=== PATIENT | female | born 1955 | race Caucasian/White ===

== ENCOUNTER 2019-08-18 00:02 | Emergency (ER) | payer MEDICARE ==
[2019-08-18] MEDS ORDERED: Sodium Chloride 0.9% 1000 ML 1,000 ML IV STA (00:06)
[2019-08-18] MEDS ORDERED: Sodium Chloride 0.9% 1000 ML 1,000 ML ONE (00:06)
[2019-08-18] MEDS ORDERED: DEXTROSE 10% 250 ML 250 ML IV SCH (00:30)
--- NOTE | 2019-08-18 00:32 | ERPHSYRPT ---
- History of Present Illness Time Seen by Provider: 08/18/19 00:10 Source: patient, EMS Exam Limitations: no limitations Patient Subjective Stated Complaint: pt was found unconsciouse on floor by family. emt states blood sugar was 20. she was given one amp of d50 blood sugar was rechecked to be 142. pt was then alert and confused. pt was alert and able to answer questions on arrival to ed. temp rectally 93.6. family states she had been having several bouts of diarrhea earlier today Triage Nursing Assessment: pt alert nad appropriate. can answer questions. pt states she has no pain at this time but feels very cold. Physician History: Patient's family called EMS about 40 minutes prior to coming into the emergency department @ approximately 23:15 due to patient being unresponsive. EMS found that the patient has an insulin pump and had a glucose of 20, so 1 amp of D50 was pushed, which improved the patient's glucose to 17 and patient's responsiveness improved significantly, although she felt a little confused. EMS personnel turned of the patient's insulin pump after noting the low glucose. EMS found patient's temperature was 93 degrees Fahrenheit, but patient was not exposed to any outdoor elements. Patient states she felt normal while preparing for bed at 20:00 on 08/18/2019, but that was the last thing she remembered. She told EMS she had diarrhea earlier on 08/18/2019. Time of Onset/Last Time Seen Normal: 20:00 on 08/18/2019 Timing/Duration: sudden, improved Severity: moderate Character of Deficits: none Deficits: no difficulties Baseline/Normal Cognition: alert oriented x 3 Current Cognition: alert oriented x 3 Baseline Gait: walks w/o assistance Associated Symptoms: confusion, chills, loss of consciousness, No fatigue, No fever, No nausea, No vomiting, No weakness, No insomnia, No muscle spasms, No numbness/tingling in legs/feet, No paresthesia, No ringing in ears, No seizures , No slurred speech, No trouble walking, No vision changes, No chest pain, No headache Allergies/Adverse Reactions: No Known Drug Allergies Allergy (Verified 08/18/19 00:20) Home Medications: Calc/D3/Mag/Zn/Paulette/Ascencion/Yellow Jacket [Calcium 600 mg Plus Vit D Tab] 1 each PO DAILY 10/04/14 [History] Insulin Aspart [NovoLOG Insulin] 0 unit SQ UD 10/06/14 [History] Tramadol HCl 50 mg [Ultram 50 mg] 50 mg PO BID 11/01/15 [History] Gabapentin 300 mg PO TID 08/18/19 [History] Levothyroxine Sodium 75 Mcg [Synthroid 75 Mcg] 75 mcg PO DAILY 08/18/19 [ History] Losartan Potassium 25 mg PO DAILY 08/18/19 [History] Hx Tetanus, Diphtheria Vaccination/Date Given: Yes Hx Influenza Vaccination/Date Given: No Hx Pneumococcal Vaccination/Date Given: No - Review of Systems Constitutional: Chills, Lethargy, No Fever Eyes: No Symptoms, No Eye Pain, No Vision Changes Ears, Nose, & Throat: No Symptoms, No Epistaxis, No Mouth Swelling, No Painful Swallowing Respiratory: No Cough, No Dyspnea Cardiac: No Chest Pain, No Edema, No Syncope Abdominal/Gastrointestinal: No Abdominal Pain, No Nausea, No Vomiting, No Diarrhea, No Hematemesis, No Hematochezia, No Melena Genitourinary Symptoms: No Dysuria, No Frequency, No Hematuria, No Flank Pain Musculoskeletal: No Back Pain, No Neck Pain, No Myalgias Skin: No Pruritis, No Rash Neurological: No Dizziness, No Focal Weakness, No Headache, No Parasthesia, No Seizure, No Sensory Changes, No Speech Changes, No Tremors Psychological: No Symptoms, No Anxiety Endocrine: No Symptoms, No Excessive Sweating Hematologic/Lymphatic: No Easy Bleeding, No Easy Bruising All Other Systems: Reviewed and Negative - Past Medical History Pertinent Past Medical History: Yes Neurological History: No Pertinent History ENT History: No Pertinent History Cardiac History: Coronary Artery Disease, High Cholesterol, Hypertension Respiratory History: No Pertinent History Endocrine Medical History: Diabetes Type I Musculoskeletal History: Arthritis GI Medical History: Ulcer History: Renal Disease, Other Psycho-Social History: No Pertinent History Female Reproductive Disorders: Breast Cancer Other Medical History: anemia, " stage 3 renal" , diabetes 2 - Past Surgical History Past Surgical History: Yes Neuro Surgical History: No Pertinent History Cardiac: Cardiac Catheterization Respiratory: No Pertinent History Gastrointestinal: Cholecystectomy Genitourinary: No Pertinent History Musculoskeletal: No Pertinent History Female Surgical History: Mastectomy Other Surgical History: colonoscopy - Social History Smoking Status: Never smoker Exposure to second hand smoke: No Drug Use: none Patient Lives Alone: No - Nursing Vital Signs Nursing Vital Signs: Initial Vital Signs Temperature 93.6 F 08/18/19 00:10 Pulse Rate 69 08/18/19 00:10 Respiratory Rate 18 08/18/19 00:10 Blood Pressure 194/76 08/18/19 00:10 O2 Sat by Pulse Oximetry 100 08/18/19 00:10 Pain Scale Pain Intensity 0 - [place] Coma Scale Best Eye Response ([place]): (4) open spontaneously Best Verbal Response ([place]): (5) oriented Best Motor Response ([place]): (6) obeys commands Christine Total: 15 - Physical Exam General Appearance: no apparent distress, alert Eye Exam: bilateral eye: normal inspection, PERRL, EOMI Ears, Nose, Throat Exam: normal ENT inspection, TMs normal, pharynx normal, moist mucous membranes Neck Exam: normal inspection, non-tender, supple, full range of motion, No meningismus, No Brudzinski, No lymphadenopathy Respiratory: normal breath sounds, lungs clear, airway intact, No respiratory distress, No accessory muscle use, No crackles/rales, No rhonchi, No wheezing, No stridor Cardiovascular: regular rate/rhythm, No edema Gastrointestinal: soft, No tenderness, No distention, No guarding, No rebound Back Exam: normal inspection, normal range of motion, No CVA tenderness, No vertebral tenderness, No rash Extremity Exam: normal inspection, normal range of motion, pelvis stable, No calf tenderness, No pedal edema, No swelling Peripheral Pulses: dorsalis-pedis (R): 2+, dorsalis-pedis (L): 2+ Mental Status: alert, oriented x 3, 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 Exam: normal hearing, normal speech, PERRL, tongue midline, No facial droop Coordination/Gait: normal finger to nose, normal cerebellar function Motor/Sensory: no motor deficit, no sensory deficit, No sensory deficit, No weak motor strength RUE, No weak motor strength LUE, No weak motor strength RLE , No weak motor strength LLE DTR: ankle (R): 2+, ankle (L): 2+ Skin Exam: normal color, warm, dry, No rash SpO2 Interpretation: normal SpO2: 100 O2 Delivery: Room Air - Course Nursing assessment & vital signs reviewed: Yes EKG Interpreted by Me: RATE (70), Sinus Rhythm, LAFB, NORMAL INTERVALS, NORMAL QRS, NORMAL ST-T, Other (no change in comparison to EKG from 02/09/2015) - Radiology Exams Chest X-ray Interpretation: Interpreted by me, Reviewed by me, Negative, No Fracture, No Pneumonia, No Pneumothorax, Nml Heart Size, No Infiltrates, Nml Mediastinum Ordered Tests: Active Orders 24 hr Category Date Time Status Accucheck STAT Care 08/18/19 00:06 Active Welder Fitter Gas STAT Care 08/18/19 00:08 Active Catheter-[place] STAT Care 08/18/19 00:06 Active EKG-ER Only STAT Care 08/18/19 00:06 Active IV Insertion STAT Care 08/18/19 00:06 Active Nursing [Miscellaneous Nursing Order] ROUTINE Care 08/18/19 00:09 Active CHEST 1 VIEW (PORTABLE) Stat Exams 08/18/19 00:06 Taken BLOOD CULTURE Stat Lab 08/18/19 02:09 Received CBC W DIFF Stat Lab 08/18/19 01:11 Completed CK-Creatinine Phosphokinase Urgent Lab 08/18/19 01:11 Completed CMP Urgent Lab 08/18/19 01:11 Completed CULTURE,URINE Stat Lab 08/18/19 01:39 Received ETHYL ALCOHOL Urgent Lab 08/18/19 01:11 Completed LIPASE Urgent Lab 08/18/19 01:11 Completed Lactic Acid Urgent Lab 08/18/19 01:05 Completed MAGNESIUM Urgent Lab 08/18/19 01:11 Completed TROPONIN Q3H Lab 08/18/19 01:11 Completed TROPONIN Q3H Lab 08/18/19 03:45 Ordered TROPONIN Q3H Lab 08/18/19 06:45 Ordered TROPONIN Q3H Lab 08/18/19 09:45 Ordered TROPONIN Q3H Lab 08/18/19 12:45 Ordered UA W/RFX UR CULTURE Stat Lab 08/18/19 01:39 Completed VENOUS BLOOD GAS Urgent Lab 08/18/19 01:05 Completed Medication Summary Generic Name Dose Route Start Last Admin Trade Name Freq PRN Reason Stop Dose Admin Dextrose 250 mls @ 50 mls/hr 08/18/19 00:30 08/18/19 00:44 Dextrose 10% 250 Ml IV 09/17/19 00:29 50 mls/hr .Q5H BRAYDEN Administration Discontinued Medications Generic Name Dose Route Start Last Admin Trade Name Freq PRN Reason Stop Dose Admin Sodium Chloride 1,000 mls @ 999 mls/hr 08/18/19 00:06 08/18/19 00:22 Sodium Chloride 0.9% 1000 Ml IV 08/18/19 01:06 999 mls/hr .Q1H1M STA Administration Potassium Chloride 40 meq 08/18/19 01:31 08/18/19 01:59 Klor Con 10 Meq PO 08/18/19 01:32 40 meq STAT ONE Administration Potassium Chloride Confirm 08/18/19 01:58 Klor Con 10 Meq Administered 08/18/19 01:59 Dose 40 meq PO .STK-MED ONE Lab/Rad Data: Laboratory Result Diagrams 08/18/19 01:11 08/18/19 01:11 Laboratory Results 08/18/19 08/18/19 08/18/19 Range/Units 01:39 01:11 01:11 WBC 10.3 (4.0-10.5) K/mm3 RBC 4.19 (4.1-5.4) M/mm3 Hgb 11.9 L (12.0-16.0) gm/dl Hct 38.4 (35-47) % MCV 91.6 (78-100) fl MCH 28.4 (26-32) pg MCHC 31.0 L (32-36) g/dl RDW 14.9 H (11.5-14.0) % Plt Count 170 (150-450) K/mm3 MPV 10.9 H (6-9.5) fl Gran % 87.1 H (36.0-66.0) % Eos # (Auto) 0.06 (0-0.5) Absolute Lymphs (auto) 0.77 L (1.0-4.6) Absolute Monos (auto) 0.48 (0.0-1.3) Lymphocytes % 7.5 L (24.0-44.0) % Monocytes % 4.7 (0.0-12.0) % Eosinophils % 0.6 (0.00-5.0) % Basophils % 0.1 (0.0-0.4) % Absolute Granulocytes 8.94 H (1.4-6.9) Basophils # 0.01 (0-0.4) pO2/FiO2 Ratio % VBG pH (7.32-7.42) VBG pCO2 at Pat Temp (42-55) mm/Hg VBG pO2 at Pat Temp (25-40) mm/Hg VBG HCO3 (22-28) meq/L VBG O2 Sat (Deborah) (95-100) VBG Base Excess (-2.0-2.0) VBG Hemoglobin VBG Carboxyhemoglobin (0.0-6.9) % T HGB POC Potassium (3.5-5.1) Sodium 143 (137-145) mmol/L Potassium 3.5 (3.5-5.1) mmol/L Chloride 108 H (98-107) mmol/L Carbon Dioxide 26 (22-30) mmol/L Anion Gap 13.1 (5-15) MEQ/L BUN 13 (7-17) mg/dL Creatinine 0.81 (0.52-1.04) mg/dL Estimated GFR > 60.0 ML/MIN Glucose 95 (74-106) mg/dL Lactic Acid (0.4-2.0) Calcium 8.9 (8.4-10.2) mg/dL Magnesium 1.7 (1.6-2.3) mg/dL Total Bilirubin 0.80 (0.2-1.3) mg/dL AST 32 (14-36) U/L ALT 16 (0-35) U/L Alkaline Phosphatase 60 (38-126) U/L Creatine Kinase 53 (30-135) U/L Troponin I < 0.012 (0.000-0.034) ng/mL Serum Total Protein 7.7 (6.3-8.2) g/dL Albumin 4.0 (3.5-5.0) g/dL Lipase 42 (23-300) U/L Urine Color YELLOW (YELLOW) Urine Appearance CLEAR (CLEAR) Urine pH 6.0 (5-6) Ur Specific [place] 1.013 (1.005-1.025) Urine Protein NEGATIVE (Negative) Urine Ketones NEGATIVE (NEGATIVE) Urine Blood NEGATIVE (0-5) Chandu/ul Urine Nitrite NEGATIVE (NEGATIVE) Urine Bilirubin NEGATIVE (NEGATIVE) Urine Urobilinogen 2 (0-1) mg/dL Ur Leukocyte Esterase NEGATIVE (NEGATIVE) Urine WBC (Auto) 0-2 (0-5) /HPF Urine RBC (Auto) NONE (0-2) /HPF U Epithel Cells (Auto) NONE (FEW) /HPF Urine Bacteria (Auto) NONE (NEGATIVE) /HPF Urine Mucus (Auto) SLIGHT (NEGATIVE) /HPF Urine Culture Reflexed ORDERED SEPARATELY (NO) Urine Glucose 50 (NEGATIVE) mg/dL Ethyl Alcohol < 10 (0-10) mg/dL 08/18/19 Range/Units 01:05 WBC (4.0-10.5) K/mm3 RBC (4.1-5.4) M/mm3 Hgb (12.0-16.0) gm/dl Hct (35-47) % MCV (78-100) fl MCH (26-32) pg MCHC (32-36) g/dl RDW (11.5-14.0) % Plt Count (150-450) K/mm3 MPV (6-9.5) fl Gran % (36.0-66.0) % Eos # (Auto) (0-0.5) Absolute Lymphs (auto) (1.0-4.6) Absolute Monos (auto) (0.0-1.3) Lymphocytes % (24.0-44.0) % Monocytes % (0.0-12.0) % Eosinophils % (0.00-5.0) % Basophils % (0.0-0.4) % Absolute Granulocytes (1.4-6.9) Basophils # (0-0.4) pO2/FiO2 Ratio 21.0 % VBG pH 7.38 (7.32-7.42) VBG pCO2 at Pat Temp 43 (42-55) mm/Hg VBG pO2 at Pat Temp 37 (25-40) mm/Hg VBG HCO3 25.4 (22-28) meq/L VBG O2 Sat (Deborah) 76.0 L (95-100) VBG Base Excess 0.1 (-2.0-2.0) VBG Hemoglobin 12.1 VBG Carboxyhemoglobin 3.7 (0.0-6.9) % T HGB POC Potassium 3.3 L (3.5-5.1) Sodium (137-145) mmol/L Potassium (3.5-5.1) mmol/L Chloride (98-107) mmol/L Carbon Dioxide (22-30) mmol/L Anion Gap (5-15) MEQ/L BUN (7-17) mg/dL Creatinine (0.52-1.04) mg/dL Estimated GFR ML/MIN Glucose (74-106) mg/dL Lactic Acid 1.0 (0.4-2.0) Calcium (8.4-10.2) mg/dL Magnesium (1.6-2.3) mg/dL Total Bilirubin (0.2-1.3) mg/dL AST (14-36) U/L ALT (0-35) U/L Alkaline Phosphatase (38-126) U/L Creatine Kinase (30-135) U/L Troponin I (0.000-0.034) ng/mL Serum Total Protein (6.3-8.2) g/dL Albumin (3.5-5.0) g/dL Lipase (23-300) U/L Urine Color (YELLOW) Urine Appearance (CLEAR) Urine pH (5-6) Ur Specific [place] (1.005-1.025) Urine Protein (Negative) Urine Ketones (NEGATIVE) Urine Blood (0-5) Chandu/ul Urine Nitrite (NEGATIVE) Urine Bilirubin (NEGATIVE) Urine Urobilinogen (0-1) mg/dL Ur Leukocyte Esterase (NEGATIVE) Urine WBC (Auto) (0-5) /HPF Urine RBC (Auto) (0-2) /HPF U Epithel Cells (Auto) (FEW) /HPF Urine Bacteria (Auto) (NEGATIVE) /HPF Urine Mucus (Auto) (NEGATIVE) /HPF Urine Culture Reflexed (NO) Urine Glucose (NEGATIVE) mg/dL Ethyl Alcohol (0-10) mg/dL - Progress Progress: improved Progress Note: 08/18/19 01:30 Temperature improved to 95.5 08/18/19 02:15 Patient's temperature continues to improve. Patient is hemodynamically in good condition with hypertension decreasing, sinus rhythm on the cardiac nurse and patient has maintained her alertness with no focal neurologic deficits at any time in the emergency department. 08/18/19 03:31 Patient is hemodynamically in good condition. No arrhythmias, ectopy, or signs of ischemia, injury or injury on the cardiac nurse. Patient's fingerstick glucose was 263 with a temperature of 97.7. With resolution of her two issues that brought patient in the emergency department that led to her unresponsvieness, patient will be discharged home as there is no further intervention needed at this time or monitoring as an inpatient. Patient will followup as an outpatient with her student development advisor to adjust her insulin pump as well as check elevation of her glucose sensor in the morning of . Counseled pt/family regarding: lab results, diagnosis, need for follow-up, rad results - Departure Departure Disposition: Home Clinical Impression: Unresponsive episode, Hypoglycemia due to insulin, Essential hypertension Hypothermia Qualifiers: Encounter type: initial encounter Qualified Code(s): T68.XXXA - Hypothermia, initial encounter Condition: Good Critical Care Time: No Referrals: PATTIE HAQUE MD [Primary Care Provider] - 08/18/19 Instructions: Hypothermia, Delirium (Confusion) (DC), Low Blood Sugar, Adult ( DC), High Blood Pressure (DC) Additional Instructions: Discharge/Care Plan MALIKAVERONICA GRIER was seen on 08/18/19 in the Emergency Room. The patient was counseled regarding Diagnosis,Lab results, Imaging studies, need for follow up and when to return to the Emergency Room. Patient is to follow-up with her student development advisor at 08:00 am on 08/18/2019 to continue management of your insulin pump. Prescriptions given: None Discharge Note I have spoken with the patient and family. I have explained the patient's condition, diagnosis and treatment plan based on the information available to me at this time. I have answered the patient's and/or caregiver's questions and addressed any concerns. The patient and family have as good understanding of the patient's diagnosis, condition and treatment plan as can be expected at this point. The vital signs have been stable. The patient's condition is stable and appropriate for discharge from the emergency department. The patient will pursue further outpatient evaluation with the primary care physician or other designated or consulting physician as outlined in the discharge instructions. The patient and family are agreeable to this plan of care and follow-up instructions have been explained in detail. The patient and family have received these instruction. The patient and family are aware that any significant change in condition or worsening of symptoms should prompt an immediate return to this or the closest emergency department or call 911.
[2019-08-18] MEDS ORDERED: DEXTROSE 10% 250 ML 250 ML IV ONE (00:42)
[2019-08-18 01:10] LABS: Absolute Neutrophil Ct (ANC) 8.94 (1.4-6.9); BASOPHIL % 0.1 % (0.0-0.4); Basophil (Absolute #) 0.01 (0-0.4); Eosinophil % 0.6 % (0.00-5.0); Eosinophil (Absolute #) 0.06 (0-0.5); Hematocrit 38.4 % (35-47); Hemoglobin 11.9 gm/dl (12.0-16.0); Lymphocyte (Absolute #) 0.77 (1.0-4.6); Lymphocytes % 7.5 % (24.0-44.0); Mean Cell Volume 91.6 fl (78-100); Mean Corpuscular Hemoglobin 28.4 pg (26-32); Mean Platelet Volume 10.9 fl (6-9.5); Monocyte (Absolute #) 0.48 (0.0-1.3); Monocytes % 4.7 % (0.0-12.0); Neutrophil % 87.1 % (36.0-66.0); Platelet Count 170 K/mm3 (150-450); Red Blood Count 4.19 M/mm3 (4.1-5.4); Red Cell Distribution Width 14.9 % (11.5-14.0); White Blood Count 10.3 K/mm3 (4.0-10.5)
[2019-08-18 01:11] LABS: VBG BASE EXCESS 0.1 (-2.0-2.0); VBG CARBOXYHEMOGLOBIN 3.7 % T HGB (0.0-6.9); VBG HCO3- 25.4 meq/L (22-28); VBG HEMOGLOBIN 12.1; VBG POTASSIUM 3.3 (3.5-5.1); VBG pH 7.38 (7.32-7.42)
[2019-08-18] MEDS ORDERED: Klor Con 10 MEQ PO ONE ×2 (01:31→01:58)
[2019-08-18 01:49] LABS: ALKALINE PHOSPHATASE 60 U/L (38-126); ANION GAP 13.1 MEQ/L (5-15); BLOOD UREA NITROGEN 13 mg/dL (7-17); CHLORIDE 108 mmol/L (98-107); CK-Creatinine Phosphokinase 53 U/L (30-135); Calcium 8.9 mg/dL (8.4-10.2); Carbon Dioxide 26 mmol/L (22-30); Creatinine 1 0.81 mg/dL (0.52-1.04); ETHYL ALCOHOL < 10 mg/dL (0-10); Glucose 95 mg/dL (74-106); LIPASE 42 U/L (23-300); MAGNESIUM 1.7 mg/dL (1.6-2.3); Potassium 3.5 mmol/L (3.5-5.1); SGOT/AST 32 U/L (14-36); SGPT/ALT 16 U/L (0-35); SODIUM 143 mmol/L (137-145); TROPONIN < 0.012 ng/mL (0.000-0.034); Total Protein 7.7 g/dL (6.3-8.2)
[2019-08-18 01:50] LABS: Appearance CLEAR (CLEAR); Bilirubin NEGATIVE (NEGATIVE); Blood NEGATIVE Ery/ul (0-5); Glucose 50 mg/dL (NEGATIVE); Ketones NEGATIVE (NEGATIVE); Leukocyte Esterase NEGATIVE (NEGATIVE); Mucus SLIGHT /HPF (NEGATIVE); Nitrite NEGATIVE (NEGATIVE); Protein,Urine Dip NEGATIVE (Negative); Specific Gravity 1.013 (1.005-1.025); Urobilinogen 2 mg/dL (0-1); WBC 0-2 /HPF (0-5)
[2019-08-18 03:12] VITALS: BP 143/62; PULSE 72
[2019-08-18 03:37] VITALS: O2SAT 100
--- NOTE | 2019-08-18 09:12 | XRAY ---
Indication: Hypoglycemia. Hypothermia. Comparison: June 20, 2016. Portable chest again demonstrates normal heart and lungs with incidental calcified granulomas and right Port-A-Cath. Bony thorax intact again with mild degenerative changes. No new/acute findings.
== END 2019-08-18 03:53 | disposition home or self-care (01) ==
LOC: ED 00:02
DX: E10.641 Type 1 diabetes mellitus with hypoglycemia with coma (principal); Z79.4 Long term (current) use of insulin; Z96.41 Presence of insulin pump (external) (internal); T68.XXXA Hypothermia, initial encounter; R40.4 Transient alteration of awareness; I12.9 Hypertensive chronic kidney disease with stage 1 through stage 4 chronic kidney disease, or unspecified chronic kidney disease; N18.3 Chronic kidney disease, stage 3 (moderate); I25.10 Atherosclerotic heart disease of native coronary artery without angina pectoris; Z85.3 Personal history of malignant neoplasm of breast; E11.9 Type 2 diabetes mellitus without complications; Z79.899 Other long term (current) drug therapy
CPT/HCPCS: 36000; 36415; 51702; 71045; 80053; 81001; 82550; 82805; 82962; 83605; 83690; 83735; 84484; 85025; 87040; 87086; 93005; 93041; 96360; 96374; 99285; G0480; 80307; A9270-GY

== ENCOUNTER 2019-08-28 18:21 | Emergency (ER) | payer MEDICARE ==
[2019-08-28] MEDS ORDERED: D50W 50 ml Abboject IV ONE ×2 (18:24→18:57)
--- NOTE | 2019-08-28 19:11 | ERPHSYRPT ---
- History of Present Illness Time Seen by Provider: 08/28/19 19:09 Source: patient Exam Limitations: no limitations Patient Subjective Stated Complaint: Hypoglycemia Triage Nursing Assessment: Patient brought into ED via EMS and transferred to bed with assist of 2. Patient A+O X3. Patient's skin pink, warm and dry. Patient states her blood sugar dropped and all she remembers is being going to her bedroom. EMS stated upon arrival blood sugar was 30. Patient's BS at this is 64. Patient denies pain or discomfort. Physician History: Patient has episode of very low blood sugar 3 hours ago Patient states her blood sugar dropped and all she remembers is being going to her bedroom. EMS stated upon arrival blood sugar was 30. Patient's BS at this is 64. Patient denies pain or discomfort. Timing/Duration: today Associated Symptoms: denies symptoms Allergies/Adverse Reactions: No Known Drug Allergies Allergy (Verified 08/28/19 18:23) Home Medications: Calc/D3/Mag/Zn/Paulette/Ascencion/Rock [Calcium 600 mg Plus Vit D Tab] 1 each PO DAILY 10/04/14 [History] Insulin Aspart [NovoLOG Insulin] 0 unit SQ UD 10/06/14 [History] Tramadol HCl 50 mg [Ultram 50 mg] 50 mg PO BID 11/01/15 [History] Gabapentin 300 mg PO TID 08/18/19 [History] Levothyroxine Sodium 75 Mcg [Synthroid 75 Mcg] 75 mcg PO DAILY 08/18/19 [ History] Losartan Potassium 25 mg PO DAILY 08/18/19 [History] Hx Tetanus, Diphtheria Vaccination/Date Given: Yes Hx Influenza Vaccination/Date Given: No Hx Pneumococcal Vaccination/Date Given: No Immunizations Up to Date: Yes - Review of Systems Constitutional: No Fever, No Chills Eyes: No Symptoms Ears, Nose, & Throat: No Symptoms Respiratory: No Cough, No Dyspnea Cardiac: No Chest Pain, No Edema, No Syncope Abdominal/Gastrointestinal: No Abdominal Pain, No Nausea, No Vomiting, No Diarrhea Genitourinary Symptoms: No Dysuria Musculoskeletal: No Back Pain, No Neck Pain Skin: No Rash Neurological: No Dizziness, No Focal Weakness, No Sensory Changes Psychological: No Symptoms Endocrine: No Symptoms All Other Systems: Reviewed and Negative - Past Medical History Pertinent Past Medical History: Yes Neurological History: No Pertinent History ENT History: No Pertinent History Cardiac History: Coronary Artery Disease, High Cholesterol, Hypertension Respiratory History: No Pertinent History Endocrine Medical History: Diabetes Type I Musculoskeletal History: Arthritis GI Medical History: Ulcer History: Renal Disease, Other Psycho-Social History: No Pertinent History Female Reproductive Disorders: Breast Cancer Other Medical History: anemia, " stage 3 renal" , diabetes 2 - Past Surgical History Past Surgical History: Yes Neuro Surgical History: No Pertinent History Cardiac: Cardiac Catheterization Respiratory: No Pertinent History Gastrointestinal: Cholecystectomy Genitourinary: No Pertinent History Musculoskeletal: No Pertinent History Female Surgical History: Mastectomy Other Surgical History: colonoscopy - Social History Smoking Status: Never smoker Exposure to second hand smoke: No Drug Use: none Patient Lives Alone: No - Female History Hx Now: No - Nursing Vital Signs Nursing Vital Signs: Initial Vital Signs Temperature 97.6 F 08/28/19 18:25 Pulse Rate 68 08/28/19 18:25 Respiratory Rate 19 08/28/19 18:25 Blood Pressure 190/65 08/28/19 18:25 O2 Sat by Pulse Oximetry 100 08/28/19 18:25 Pain Scale Pain Intensity 0 - Physical Exam General Appearance: no apparent distress, alert Eye Exam: PERRL/EOMI, eyes nml inspection Ears, Nose, Throat Exam: normal ENT inspection, TMs normal, pharynx normal, moist mucous membranes Neck Exam: normal inspection, non-tender, supple, full range of motion Respiratory Exam: normal breath sounds, lungs clear, No respiratory distress Cardiovascular Exam: regular rate/rhythm, normal heart sounds, normal peripheral pulses Gastrointestinal/Abdomen Exam: soft, normal bowel sounds, No tenderness, No mass Back Exam: normal inspection, normal range of motion, No CVA tenderness, No vertebral tenderness Extremity Exam: normal inspection, normal range of motion, pelvis stable Neurologic Exam: alert, oriented x 3, cooperative, normal mood/affect, nml cerebellar function, nml station & gait, sensation nml, No motor deficits Skin Exam: normal color, warm, dry, No rash Lymphatic Exam: No adenopathy SpO2: 100 - Course Nursing assessment & vital signs reviewed: Yes EKG Interpreted by Me: Sinus Rhythm Rhythm Strip: Normal Sinus Rhythm Ordered Tests: Active Orders 24 hr Category Date Time Status ACCUCHECK [Accucheck] STAT Care 08/28/19 18:40 Active IV Insertion STAT Care 08/28/19 18:41 Active CBC W DIFF Stat Lab 08/28/19 19:53 Completed CMP Stat Lab 08/28/19 19:53 Completed CULTURE,URINE Stat Lab 08/28/19 19:55 Received Lactic Acid Stat Lab 08/28/19 18:39 Ordered MAG [MAGNESIUM] Stat Lab 08/28/19 19:53 Completed UA W/RFX UR CULTURE Stat Lab 08/28/19 19:55 Completed Medication Summary Discontinued Medications Generic Name Dose Route Start Last Admin Trade Name Ananya PRN Reason Stop Dose Admin Dextrose Confirm 08/28/19 18:24 D50w 50 Ml Abboject Administered 08/28/19 18:25 Dose 50 ml IV .STK-MED ONE Dextrose 50 ml 08/28/19 18:57 08/28/19 19:01 D50w 50 Ml Abboject IV 08/28/19 18:58 50 ml STAT ONE Administration Lab/Rad Data: Laboratory Result Diagrams 08/28/19 19:53 08/28/19 19:53 Laboratory Results 08/28/19 08/28/19 08/28/19 Range/Units 19:55 19:53 19:53 WBC 9.0 (4.0-10.5) K/mm3 RBC 4.07 L (4.1-5.4) M/mm3 Hgb 11.6 L (12.0-16.0) gm/dl Hct 37.0 (35-47) % MCV 90.9 (78-100) fl MCH 28.5 (26-32) pg MCHC 31.4 L (32-36) g/dl RDW 14.3 H (11.5-14.0) % Plt Count 180 (150-450) K/mm3 MPV 11.2 H (6-9.5) fl Gran % 83.2 H (36.0-66.0) % Eos # (Auto) 0.08 (0-0.5) Absolute Lymphs (auto) 0.96 L (1.0-4.6) Absolute Monos (auto) 0.45 (0.0-1.3) Lymphocytes % 10.7 L (24.0-44.0) % Monocytes % 5.0 (0.0-12.0) % Eosinophils % 0.9 (0.00-5.0) % Basophils % 0.2 (0.0-0.4) % Absolute Granulocytes 7.47 H (1.4-6.9) Basophils # 0.02 (0-0.4) Sodium 140 (137-145) mmol/L Potassium 4.1 (3.5-5.1) mmol/L Chloride 102 (98-107) mmol/L Carbon Dioxide 29 (22-30) mmol/L Anion Gap 13.7 (5-15) MEQ/L BUN 16 (7-17) mg/dL Creatinine 0.78 (0.52-1.04) mg/dL Estimated GFR > 60.0 ML/MIN Glucose 353 H (74-106) mg/dL Calcium 9.0 (8.4-10.2) mg/dL Magnesium 1.7 (1.6-2.3) mg/dL Total Bilirubin 0.70 (0.2-1.3) mg/dL AST 36 (14-36) U/L ALT 22 (0-35) U/L Alkaline Phosphatase 71 (38-126) U/L Serum Total Protein 7.8 (6.3-8.2) g/dL Albumin 4.0 (3.5-5.0) g/dL Urine Color YELLOW (YELLOW) Urine Appearance SLIGHTLY CLOUDY (CLEAR) Urine pH 7.0 (5-6) Ur Specific [place] 1.008 (1.005-1.025) Urine Protein NEGATIVE (Negative) Urine Ketones NEGATIVE (NEGATIVE) Urine Blood SMALL (0-5) Chandu/ul Urine Nitrite NEGATIVE (NEGATIVE) Urine Bilirubin NEGATIVE (NEGATIVE) Urine Urobilinogen NEGATIVE (0-1) mg/dL Ur Leukocyte Esterase SMALL (NEGATIVE) Urine WBC (Auto) 0-2 (0-5) /HPF Urine RBC (Auto) 3-5 (0-2) /HPF U Epithel Cells (Auto) RARE (FEW) /HPF Urine Bacteria (Auto) NONE (NEGATIVE) /HPF Urine Mucus (Auto) SLIGHT (NEGATIVE) /HPF Urine Culture Reflexed YES (NO) Urine Glucose 150 (NEGATIVE) mg/dL - Progress Progress: improved Counseled pt/family regarding: lab results, diagnosis, need for follow-up, rad results - Departure Departure Disposition: Home Clinical Impression: Hypoglycemia associated with diabetes Condition: Stable Critical Care Time: No Referrals: PATTIE HAQUE MD [Primary Care Provider] - Instructions: Low Blood Sugar, Adult (DC) Additional Instructions: Discharge/Care Plan VERONICA DALY was seen on 08/28/19 in the Emergency Room. The patient was counseled regarding Diagnosis,Lab results, Imaging studies, need for follow up and when to return to the Emergency Room. Prescriptions given: Discharge Note I have spoken with the patient and/or caregivers. I have explained the patient' s condition, diagnosis and treatment plan based on the information available to me at this time. I have answered the patient's and/or caregiver's questions and addressed any concerns. The patient and/or caregivers have as good understanding of the patient's diagnosis, condition and treatment plan as can be expected at this point. The vital signs have been stable. The patient's condition is stable and appropriate for discharge from the emergency department. The patient will pursue further outpatient evaluation with the primary care physician or other designated or consulting physician as outlined in the discharge instructions. The patient and/or caregivers are agreeable to this plan of care and follow-up instructions have been explained in detail. The patient and/or caregivers have received these instruction. The patient/and or caregivers are aware that any significant change in condition or worsening of symptoms should prompt an immediate return to this or the closest emergency department or call 911. VERONICA DALY was seen on 08/28/19 n the Emergency Room. At that time you were treated for an emergent condition, during your visit Laboratory, Radiology and/or other procedures may have been ordered. It is very important that you follow-up with your Primary Care Physician PATTIE HAQUE within the next 24- 48 hours to review your Emergency Room visit and the final results of testing that was ordered. Some test results such as Urine Cultures, Blood Cultures, and other cultures if ordered will not be finalized for 24-48 hours. If you do not have a Primary Care Provider please call the medical records department at [phone] ext [phone] to obtain a copy of your results or you may sign into our patient portal to obtain these results by visiting us @ [email or web address] and completing the following steps: 1. Click on the Patient Portal link 2. Click the Patient Self Enrollment Link to complete the enrollment form and entering your 3. Once the enrollment form is completed you will receive an email with a temporary ID and password at the email address you provided. 4. Next choose a user name and password. Your user name must be at least 4 characters long and your password must be at least 4 characters long. 5. Choose a security question from the list and provide your answer to the question. If you already have signed into the Health Portal you may access your Health Care Information 28/04 by the following steps: 1. Login to our website @ [email or web address] 2. Enter your original user name and password. FAQS The [facility] Health Portal is an online tool that contains your Lab Results, Radiology Reports, Visit History, Discharge Instructions and Health Summary Lab and Radiology Results will not be available for 72 hours on the portal. The Portal is a secure site, passwords are encryted and URLs are re-written so they cannot be copied and pasted. You and authorized family members are the only ones who can access your Portal. Also there is a timeout feature that protects your information if you leave the Portal page open. If you have technical difficulty please use the Contact Us link on the page this will allow you to submit any questions you have regarding the Portal or you may contact the Medical Record Department at [phone] ext [phone].
[2019-08-28 19:52] LABS: Absolute Neutrophil Ct (ANC) 7.47 (1.4-6.9); BASOPHIL % 0.2 % (0.0-0.4); Basophil (Absolute #) 0.02 (0-0.4); Eosinophil % 0.9 % (0.00-5.0); Eosinophil (Absolute #) 0.08 (0-0.5); Hemoglobin 11.6 gm/dl (12.0-16.0); Lymphocyte (Absolute #) 0.96 (1.0-4.6); Lymphocytes % 10.7 % (24.0-44.0); Mean Cell Volume 90.9 fl (78-100); Mean Corpuscular Hemoglobin 28.5 pg (26-32); Mean Corpuscular Hgb Concent. 31.4 g/dl (32-36); Mean Platelet Volume 11.2 fl (6-9.5); Monocyte (Absolute #) 0.45 (0.0-1.3); Neutrophil % 83.2 % (36.0-66.0); Platelet Count 180 K/mm3 (150-450); Red Blood Count 4.07 M/mm3 (4.1-5.4); Red Cell Distribution Width 14.3 % (11.5-14.0)
[2019-08-28 19:53] LABS: Appearance SLIGHTLY CLOUDY (CLEAR); Bilirubin NEGATIVE (NEGATIVE); Blood SMALL Ery/ul (0-5); Epithelial Cells RARE /HPF (FEW); Glucose 150 mg/dL (NEGATIVE); Ketones NEGATIVE (NEGATIVE); Leukocyte Esterase SMALL (NEGATIVE); Mucus SLIGHT /HPF (NEGATIVE); Nitrite NEGATIVE (NEGATIVE); Protein,Urine Dip NEGATIVE (Negative); Specific Gravity 1.008 (1.005-1.025); Urobilinogen NEGATIVE mg/dL (0-1); WBC 0-2 /HPF (0-5)
[2019-08-28 20:09] LABS: ALKALINE PHOSPHATASE 71 U/L (38-126); ANION GAP 13.7 MEQ/L (5-15); BLOOD UREA NITROGEN 16 mg/dL (7-17); CHLORIDE 102 mmol/L (98-107); Carbon Dioxide 29 mmol/L (22-30); Creatinine 1 0.78 mg/dL (0.52-1.04); Glucose 353 mg/dL (74-106); MAGNESIUM 1.7 mg/dL (1.6-2.3); Potassium 4.1 mmol/L (3.5-5.1); SGOT/AST 36 U/L (14-36); SGPT/ALT 22 U/L (0-35); SODIUM 140 mmol/L (137-145); Total Protein 7.8 g/dL (6.3-8.2)
[2019-08-28 20:23] VITALS: BP 169/89; PULSE 89; O2SAT 96
== END 2019-08-28 20:23 | disposition home or self-care (01) ==
LOC: ED 18:21
DX: E11.649 Type 2 diabetes mellitus with hypoglycemia without coma (principal); I25.10 Atherosclerotic heart disease of native coronary artery without angina pectoris; E78.00 Pure hypercholesterolemia, unspecified; I10 Essential (primary) hypertension
CPT/HCPCS: 36000; 36415; 80053; 81001; 82962; 83605; 83735; 85025; 87086; 96374; 99284; J1642

== ENCOUNTER 2021-03-30 23:12 | Inpatient (IN) | payer MEDICARE ==
[2021-03-30] MEDS ORDERED: Sodium Chloride 0.9% 1000 ML 2,000 ML ONE (23:25)
[2021-03-30] MEDS ORDERED: SODIUM BICARBONATE 50 MEQ/50 ML ABBOJECT IV ONE ×3 (23:26→23:31)
[2021-03-30] MEDS ORDERED: Sodium Chloride 0.9% 1000 ML 1,000 ML IV STA ×4 (23:26→23:40)
[2021-03-30] MEDS ORDERED: Calcium Gluconate 10% 1000 MG IV ONE ×2 (23:27→23:51)
[2021-03-30] MEDS ORDERED: HUMULIN R IV ONE (23:31)
[2021-03-30] MEDS ORDERED: HUMULIN R 100 UNIT in Sodium Chloride 0.9% 100 ML BAG 100 ML IV PRN (23:40)
[2021-03-30 23:43] LABS: Hematocrit 39.8 % (35-47); Hemoglobin 11.4 gm/dl (12.0-16.0); Mean Cell Volume 106.4 fl (78-100); Mean Corpuscular Hemoglobin 30.5 pg (26-32); Mean Corpuscular Hgb Concent. 28.6 g/dl (32-36); Platelet Count 260 K/mm3 (150-450); Red Blood Count 3.74 M/mm3 (4.1-5.4); Red Cell Distribution Width 14.5 % (11.5-14.0)
[2021-03-30 23:44] LABS: White Blood Count 31.3 K/mm3 (4.0-10.5)
[2021-03-30 23:47] LABS: ALBUMIN 4.3 g/dL (3.5-5.0); ALKALINE PHOSPHATASE 90 U/L (38-126); BLOOD UREA NITROGEN 28 mg/dL (7-17); CHLORIDE 93 mmol/L (98-107); Calcium 8.9 mg/dL (8.4-10.2); Creatinine 1 2.49 mg/dL (0.52-1.04); EST GLOMERULAR FILTRATION RATE 20.5 ML/MIN; ETHYL ALCOHOL < 10 mg/dL (0-10); MAGNESIUM 2.2 mg/dL (1.6-2.3); SGOT/AST 34 U/L (14-36); SODIUM 132 mmol/L (137-145); Total Protein 7.3 g/dL (6.3-8.2)
[2021-03-30 23:49] LABS: Glucose 1209 mg/dL (74-106)
[2021-03-30 23:50] LABS: Carbon Dioxide < 5.0 mmol/L (22-30); Potassium 8.1 mmol/L (3.5-5.1); SGPT/ALT 24 U/L (0-35)
[2021-03-30 23:54] LABS: ARTERIAL BLOOD GAS pH 7.04 (7.35-7.45)
[2021-03-30 23:55] LABS: ARTERIAL BLD GAS O2 SATURATION 99.7 % (95-100); ARTERIAL BLOOD GAS BASE EXCESS -24.5 (-2.0-2.0); ARTERIAL BLOOD GAS PCO2 16 mmHg (35-45); ARTERIAL BLOOD GAS PO2 136 mmHg (75-100); HCO3- 4.3 (22-28)
[2021-03-30 23:56] LABS: A-aADO2 -6
[2021-03-30 23:57] LABS: ABG HEMOGLOBIN 11.9; ABG POTASSIUM 7.9 (3.5-5.1); ARTERIAL BLOOD GAS FIO2 21 %; HGB O2 SAT 97.8 g/dF (94-100); Methhemoglobin 1.2 % (1.4-1.5)
[2021-03-30 23:58] LABS: Lymphocytes 6 % (24-44); Neutrophils 94 % (36.0-66.0); Platelet Estimate NORMAL (NORMAL); Total Cells Counted 100
[2021-03-30 23:58] LABS: ABG SITE RIGHT BRACHIAL; CARBOXYHEMOGLOBIN 0.7 % THgb (0.0-6.9)
[2021-03-31] MEDS ORDERED: HUMULIN R 100 UNIT in Sodium Chloride 0.9% 100 ML BAG 100 ML IV PRN ×2 (00:02→03:01)
--- NOTE | 2021-03-31 00:15 | ERPHSYRPT ---
- History of Present Illness Time Seen by Provider: 03/30/21 23:20 Source: EMS Exam Limitations: clinical condition Patient Subjective Stated Complaint: altered mental status/hyperglycemia Triage Nursing Assessment: Patient presented alert to voice and confused. EMS reported patient not acting right per family and having problems with her blood sugar. History of breast cancer and left radical masectomy. pupils 3mm bilateral. Oral mucosa pink/dry. neck supple without JVD. Symmterical chest expansion. Heart tones tacychardic/regular. Respirations tachypneic/deep. lungs vesicular throughout all omer A/P. Peripheral pulses +2 bilateral. Abdomen non-distended without hepatosplenomegaly. bowel sounds present. No noted dependent edema. decreased skin turgor. Physician History: Patient is a 66-year-old female who has apparently been ill for at least several days she is a known diabetic at 3:00 this afternoon according to EMS family reports that she became increasingly confused and that was when they realized th at she was ill. Patient is reactive to pain and occasionally to verbal commands moving all extremities opens her eyes spontaneously to voice. EMS found that her blood sugar was higher than their machine could read they reported the family said that she had no insulin today. Timing/Duration: day(s), worse (Worse today) Severity: severe Modifying Factors: Improves With: nothing Allergies/Adverse Reactions: No Known Drug Allergies Allergy (Verified 08/28/19 18:23) Home Medications: Calc/D3/Mag/Zn/Paulette/Ascencion/Hebo [Calcium 600 mg Plus Vit D Tab] 1 each PO DAILY 1 [History] Insulin Aspart [NovoLOG Insulin] 0 unit SQ UD 10/06/14 [History] Tramadol HCl 50 mg [Ultram 50 mg] 50 mg PO BID 11/01/15 [History] Gabapentin 300 mg PO TID 08/18/19 [History] Levothyroxine Sodium 75 Mcg [Synthroid 75 Mcg] 75 mcg PO DAILY 08/18/19 [History] Losartan Potassium 25 mg PO DAILY 08/18/19 [History] Hx Tetanus, Diphtheria Vaccination/Date Given: Yes Hx Influenza Vaccination/Date Given: No Hx Pneumococcal Vaccination/Date Given: No Travel Risk - International Travel Have you traveled outside of the country in past 3 weeks: (unknown) - Coronavirus Screening Are you exhibiting any of the following symptoms?: No Close contact with a COVID-19 positive Pt in past 14-21 Days: No - Vaccine Status Have you recieved a Covid-19 vaccination: Yes 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 - Vaccination Dates Date of 2cond Vaccination (if applicable): unknown Dates if Unknown: unknown - Review of Systems All Other Systems: Unable due to condition - Past Medical History Pertinent Past Medical History: Yes Neurological History: No Pertinent History ENT History: No Pertinent History Cardiac History: Coronary Artery Disease, High Cholesterol, Hypertension Respiratory History: No Pertinent History Endocrine Medical History: Diabetes Type I Musculoskeletal History: Arthritis GI Medical History: Ulcer History: Renal Disease, Other Psycho-Social History: No Pertinent History Female Reproductive Disorders: Breast Cancer Other Medical History: anemia, " stage 3 renal" , diabetes 2 - Past Surgical History Past Surgical History: Yes Neuro Surgical History: No Pertinent History Cardiac: Cardiac Catheterization Respiratory: No Pertinent History Gastrointestinal: Cholecystectomy Genitourinary: No Pertinent History Musculoskeletal: No Pertinent History Female Surgical History: Mastectomy Other Surgical History: colonoscopy - Social History Smoking Status: Never smoker Exposure to second hand smoke: No Drug Use: none Patient Lives Alone: No - Nursing Vital Signs Nursing Vital Signs: Initial Vital Signs Temperature 98.4 F 03/30/21 23:12 Pulse Rate 120 H 03/30/21 23:12 Respiratory Rate 24 03/30/21 23:12 Blood Pressure 98/64 03/30/21 23:12 O2 Sat by Pulse Oximetry 98 03/30/21 23:12 Pain Scale Pain Intensity 0 - Physical Exam General Appearance: severe distress, lethargy Eye Exam: PERRL/EOMI, eyes nml inspection Ears, Nose, Throat Exam: dry mucous membranes Neck Exam: normal inspection, non-tender, supple Respiratory Exam: normal breath sounds, lungs clear, other Cardiovascular Exam: regular rate/rhythm, tachycardia Gastrointestinal/Abdomen Exam: normal bowel sounds, tenderness, guarding Pelvic Exam: not done Rectal Exam: deferred Extremity Exam: normal inspection, pelvis stable Neurologic Exam: disoriented, confusion Skin Exam: normal color, warm, dry SpO2 Interpretation: normal SpO2: 97 O2 Delivery: Room Air - Course Nursing assessment & vital signs reviewed: Yes EKG Interpreted by Me: RATE (109), Sinus Tach, NORMAL AXIS, Left [place] Deviation, Other (Marked elevation of the T waves across most leads) - Radiology Exams Chest X-ray Interpretation: Interpreted by me, Other (Chest x-ray shows a port status post left mastectomy otherwise no acute process identified in the chest) Ordered Tests: Active Orders 24 hr Category Date Time Status Field Investigator STAT Care 03/30/21 23:32 Active Catheter-Holdrege Kaufman STAT Care 03/30/21 23:31 Active EKG-ER Only STAT Care 03/30/21 23:31 Active IV Insertion STAT Care 03/30/21 23:31 Active IV Insertion-2nd Peripheral STAT Care 03/30/21 23:31 Active Pulse Oximetry (ED) STAT Care 03/30/21 23:31 Active CHEST 1 VIEW (PORTABLE) Stat Exams 03/30/21 23:31 Taken ABG [ARTERIAL BLOOD GASES] Stat Lab 03/30/21 23:38 Ordered ARTERIAL BLOOD GASES Urgent Lab 03/30/21 23:32 Completed BLOOD CULTURE Stat Lab 03/30/21 23:00 Received BMP Stat Lab 03/31/21 00:10 Completed CBC W DIFF Stat Lab 03/30/21 23:00 Completed CMP Stat Lab 03/30/21 22:00 Completed CULTURE,URINE Stat Lab 03/30/21 23:31 Received ETHYL ALCOHOL Stat Lab 03/30/21 22:00 Completed Lactic Acid Urgent Lab 03/30/21 23:31 Completed MAGNESIUM Stat Lab 03/30/21 22:00 Completed Manual Differential NC Stat Lab 03/30/21 23:00 Completed POCT GLUCOSE Stat Lab 03/31/21 00:01 Received UA W/RFX UR CULTURE Stat Lab 03/30/21 23:31 Completed Transfer Order Routine Transfer 03/30/21 Ordered Medication Summary Generic Name Dose Route Start Last Admin Trade Name Freq PRN Reason Stop Dose Admin Insulin Human Regular 100 unit 100 mls @ 6.577 mls/hr 03/31/21 00:02 03/31/21 00:05 / Sodium Chloride IV 04/30/21 00:01 0.1 unit/kg/hr .[id number] PRN 6.577 mls/hr DKA/HYPERGLYCEMIA Administration Protocol 0.1 UNIT/KG/HR Ceftriaxone Sodium/Dextrose 1 g in 50 mls @ 100 mls/hr 03/31/21 00:46 Rocephin 1 Gm-D5w 50 Ml Bag IV 03/31/21 01:15 STAT STA Discontinued Medications Generic Name Dose Route Start Last Admin Trade Name Freq PRN Reason Stop Dose Admin Calcium Gluconate 1,000 mg 03/30/21 23:27 03/30/21 23:54 Calcium Gluconate 10% 1000 Mg IV 03/30/21 23:28 1,000 mg STAT ONE Administration Calcium Gluconate Confirm 03/30/21 23:51 Calcium Gluconate 10% 1000 Mg Administered 03/30/21 23:52 Dose 1,000 mg IV .STK-MED ONE Sodium Chloride 1,000 mls @ 999 mls/hr 03/30/21 23:26 03/30/21 23:27 Sodium Chloride 0.9% 1000 Ml IV 03/31/21 00:26 999 mls/hr .Q1H1M STA Administration Sodium Chloride 1,000 mls @ 999 mls/hr 03/30/21 23:26 03/30/21 23:27 Sodium Chloride 0.9% 1000 Ml IV 03/31/21 00:26 999 mls/hr .Q1H1M STA Administration Sodium Chloride Confirm 03/30/21 23:25 Sodium Chloride 0.9% 1000 Ml Administered 03/30/21 23:26 Dose 2,000 mls @ ud .ROUTE .STK-MED ONE Sodium Chloride 1,000 mls @ 999 mls/hr 03/30/21 23:31 03/30/21 23:53 Sodium Chloride 0.9% 1000 Ml IV 03/31/21 00:31 999 mls/hr .Q1H1M STA Administration Sodium Chloride 1,000 mls @ 999 mls/hr 03/30/21 23:40 03/30/21 23:51 Sodium Chloride 0.9% 1000 Ml IV 03/31/21 00:40 999 mls/hr .Q1H1M STA Administration Insulin Human Regular 10 unit 03/30/21 23:31 03/30/21 23:49 Humulin R IV 03/30/21 23:32 10 unit STAT ONE Administration Sodium Bicarbonate Confirm 03/30/21 23:27 Sodium Bicarbonate 50 Meq/50 Ml Abboject Administered 03/30/21 23:28 Dose 50 meq IV .STK-MED ONE Sodium Bicarbonate 50 meq 03/30/21 23:26 03/30/21 23:51 Sodium Bicarbonate 50 Meq/50 Ml Abboject IV 03/30/21 23:27 50 meq STAT ONE Administration Sodium Bicarbonate 50 meq 03/30/21 23:31 03/30/21 23:12 Sodium Bicarbonate 50 Meq/50 Ml Abboject IV 03/30/21 23:32 50 meq STAT ONE Administration Lab/Rad Data: Laboratory Result Diagrams 03/30/21 23:00 03/31/21 00:10 Laboratory Results 03/31/21 03/30/21 03/30/21 Range/Units 00:10 23:32 23:31 WBC (4.0-10.5) K/mm3 RBC (4.1-5.4) M/mm3 Hgb (12.0-16.0) gm/dl Hct (35-47) % MCV (78-100) fl MCH (26-32) pg MCHC (32-36) g/dl RDW (11.5-14.0) % Plt Count (150-450) K/mm3 MPV (7.5-11.0) fl Segmented Neutrophils (36.0-66.0) % Lymphocytes (Manual) (24-44) % Platelet Estimate (NORMAL) RBC Morphology Puncture Site RIGHT BRACHIAL pCO2 16 L* (35-45) mmHg pO2 136 H* (75-100) mmHg Base Excess -24.5 L (-2.0-2.0) O2 Saturation 97.8 (94-100) g/dF ABG pH 7.04 L* (7.35-7.45) ABG HCO3 4.3 L* (22-28) ABG O2 Sat (Measured) 99.7 (95-100) % Maxi Test NOT APPLICABLE A-a Gradient -6 a/A Ratio 1.05 Hemoglobin 11.9 Carboxyhemoglobin 0.7 (0.0-6.9) % THgb Methemoglobin 1.2 L (1.4-1.5) % POC O2 Flow Rate 21 % Sodium 143 D (137-145) mmol/L Potassium 4.9 D 7.9 H* (3.5-5.1) mmol/L Chloride 107 D (98-107) mmol/L Carbon Dioxide 9 L* (22-30) mmol/L Anion Gap 31.8 H (5-15) MEQ/L BUN 25 H (7-17) mg/dL Creatinine 2.04 H (0.52-1.04) mg/dL Estimated GFR 25.7 ML/MIN Glucose 753 H* (74-106) mg/dL Lactic Acid 6.9 H (0.4-2.0) Calcium 7.8 L (8.4-10.2) mg/dL Magnesium (1.6-2.3) mg/dL Total Bilirubin (0.2-1.3) mg/dL AST (14-36) U/L ALT (0-35) U/L Alkaline Phosphatase (38-126) U/L Serum Total Protein (6.3-8.2) g/dL Albumin (3.5-5.0) g/dL Urine Color (YELLOW) Urine Appearance (CLEAR) Urine pH (5-6) Ur Specific Morris (1.005-1.025) Urine Protein (Negative) Urine Ketones (NEGATIVE) Urine Blood (0-5) Chandu/ul Urine Nitrite (NEGATIVE) Urine Bilirubin (NEGATIVE) Urine Urobilinogen (0-1) mg/dL Ur Leukocyte Esterase (NEGATIVE) Urine WBC (Auto) (0-5) /HPF Urine RBC (Auto) (0-2) /HPF U Epithel Cells (Auto) (FEW) /HPF Urine Bacteria (Auto) (NEGATIVE) /HPF Urine Culture Reflexed (NO) Urine Glucose (NEGATIVE) mg/dL Ethyl Alcohol (0-10) mg/dL 03/30/21 03/30/21 03/30/21 Range/Units 23:31 23:00 22:00 WBC 31.3 H* (4.0-10.5) K/mm3 RBC 3.74 L (4.1-5.4) M/mm3 Hgb 11.4 L (12.0-16.0) gm/dl Hct 39.8 (35-47) % MCV 106.4 H (78-100) fl MCH 30.5 (26-32) pg MCHC 28.6 L (32-36) g/dl RDW 14.5 H (11.5-14.0) % Plt Count 260 (150-450) K/mm3 MPV 12.0 H (7.5-11.0) fl Segmented Neutrophils 94 H (36.0-66.0) % Lymphocytes (Manual) 6 L (24-44) % Platelet Estimate NORMAL (NORMAL) RBC Morphology NORMAL Puncture Site pCO2 (35-45) mmHg pO2 (75-100) mmHg Base Excess (-2.0-2.0) O2 Saturation (94-100) g/dF ABG pH (7.35-7.45) ABG HCO3 (22-28) ABG O2 Sat (Measured) (95-100) % Maxi Test A-a Gradient a/A Ratio Hemoglobin Carboxyhemoglobin (0.0-6.9) % THgb Methemoglobin (1.4-1.5) % POC O2 Flow Rate % Sodium 132 L (137-145) mmol/L Potassium 8.1 H* (3.5-5.1) mmol/L Chloride 93 L (98-107) mmol/L Carbon Dioxide < 5.0 L* (22-30) mmol/L Anion Gap (5-15) MEQ/L BUN 28 H (7-17) mg/dL Creatinine 2.49 H (0.52-1.04) mg/dL Estimated GFR 20.5 ML/MIN Glucose 1209 H* (74-106) mg/dL Lactic Acid (0.4-2.0) Calcium 8.9 (8.4-10.2) mg/dL Magnesium 2.2 (1.6-2.3) mg/dL Total Bilirubin 0.70 (0.2-1.3) mg/dL AST 34 (14-36) U/L ALT 24 (0-35) U/L Alkaline Phosphatase 90 (38-126) U/L Serum Total Protein 7.3 (6.3-8.2) g/dL Albumin 4.3 (3.5-5.0) g/dL Urine Color YELLOW (YELLOW) Urine Appearance CLOUDY (CLEAR) Urine pH 5.0 (5-6) Ur Specific [place] 1.021 (1.005-1.025) Urine Protein 30 (Negative) Urine Ketones SMALL (NEGATIVE) Urine Blood MODERATE (0-5) Chandu/ul Urine Nitrite NEGATIVE (NEGATIVE) Urine Bilirubin NEGATIVE (NEGATIVE) Urine Urobilinogen NEGATIVE (0-1) mg/dL Ur Leukocyte Esterase TRACE (NEGATIVE) Urine WBC (Auto) 16-25 (0-5) /HPF Urine RBC (Auto) 3-5 (0-2) /HPF U Epithel Cells (Auto) NONE (FEW) /HPF Urine Bacteria (Auto) NONE (NEGATIVE) /HPF Urine Culture Reflexed ORDERED SEPARATELY (NO) Urine Glucose >=500 (NEGATIVE) mg/dL Ethyl Alcohol < 10 (0-10) mg/dL - Progress Progress: improved Discussed with : Mel Will see patient in: hospital (full admit) - Departure Departure Disposition: In-patient Admission Clinical Impression: Ketoacidosis due to diabetes mellitus Condition: Critical Critical Care Time: Yes Critical Care Time(excluding separately billable procedures): Critical 105-134 mins Referrals: PATTIE HAQUE MD [Primary Care Provider] -
[2021-03-31 00:36] LABS: ANION GAP 31.8 MEQ/L (5-15); Calcium 7.8 mg/dL (8.4-10.2); Creatinine 1 2.04 mg/dL (0.52-1.04); EST GLOMERULAR FILTRATION RATE 25.7 ML/MIN; Potassium 4.9 mmol/L (3.5-5.1)
[2021-03-31 00:39] LABS: Appearance CLOUDY (CLEAR); Bilirubin NEGATIVE (NEGATIVE); Blood MODERATE Ery/ul (0-5); Glucose >=500 mg/dL (NEGATIVE); Ketones SMALL (NEGATIVE); Leukocyte Esterase TRACE (NEGATIVE); Nitrite NEGATIVE (NEGATIVE); Protein,Urine Dip 30 (Negative); Specific Gravity 1.021 (1.005-1.025); Urobilinogen NEGATIVE mg/dL (0-1)
[2021-03-31] MEDS ORDERED: ROCEPHIN 1 Gm-D5w 50 ml Bag** 1 G/50 ML IVPB IV STA (00:46)
[2021-03-31] MEDS ORDERED: Sodium Chloride 0.9% 500 ML 500 ML IV ONE (01:00)
[2021-03-31] MEDS ORDERED: ROCEPHIN 1 Gm-D5w 50 ml Bag** 1 G/50 ML IVPB IV ONE (01:39)
[2021-03-31] MEDS ORDERED: Sodium Chloride 0.9% 1000 ML 2,000 ML ONE (01:44)
[2021-03-31] MEDS: Sodium Chloride 0.9% 1000 ML 1,000 ML IV SCH ×4 (01:44→05:28)
[2021-03-31 04:34] LABS: Hematocrit 31.9 % (35-47); Hemoglobin 9.9 gm/dl (12.0-16.0); Mean Cell Volume 94.4 fl (78-100); Mean Corpuscular Hemoglobin 29.3 pg (26-32); Mean Platelet Volume 10.7 fl (7.5-11.0); Platelet Count 165 K/mm3 (150-450); Red Blood Count 3.38 M/mm3 (4.1-5.4); Red Cell Distribution Width 13.6 % (11.5-14.0)
[2021-03-31 04:44] LABS: VBG pH 7.32 (7.32-7.42)
[2021-03-31 04:45] LABS: VBG BASE EXCESS -8.9 (-2.0-2.0); VBG CARBOXYHEMOGLOBIN 2.7 % T HGB (0.0-6.9); VBG HEMOGLOBIN 10.3; VBG O2 SATURATION 90.9 (95-100); VBG POTASSIUM 4.2 (3.5-5.1)
[2021-03-31 04:45] LABS: ALBUMIN 3.4 g/dL (3.5-5.0); ANION GAP 20.1 MEQ/L (5-15); BILIRUBIN,TOTAL 0.4 mg/dL (0.2-1.3); Calcium 7.9 mg/dL (8.4-10.2); Creatinine 1 1.78 mg/dL (0.52-1.04); EST GLOMERULAR FILTRATION RATE 30.1 ML/MIN; MAGNESIUM 1.8 mg/dL (1.6-2.3); PHOSPHOROUS 2.1 mg/dL (2.5-4.5); Potassium 4.1 mmol/L (3.5-5.1); Total Protein 6.1 g/dL (6.3-8.2)
[2021-03-31 04:46] LABS: Lactic Acid 4.5 (0.4-2.0)
[2021-03-31 05:56] LABS: BAND 5 % (0.0-2.0); Lymphocytes 10 % (24-44); Monocyte 2 % (0.0-12.0); Neutrophils 83 % (36.0-66.0); Total Cells Counted 100
[2021-03-31 05:57] LABS: Dohle Bodies 1+; Platelet Estimate NORMAL (NORMAL)
[2021-03-31 06:38] VITALS: BP 100/75; PULSE 82; O2SAT 98
--- NOTE | 2021-03-31 07:29 | XRAY ---
Indication: Diabetic ketoacidosis. Comparison: August 18, 2019. Portable chest again demonstrates normal heart and lungs with a few incidental calcified granulomas and right Port-A-Cath. Bony thorax intact again with mild osteopenia, degenerative changes, and left mastectomy. No new/acute findings.
[2021-03-31] MEDS ORDERED: ROCEPHIN 1 Gm-D5w 50 ml Bag** 1 G/50 ML IVPB IV SCH (22:00)
== END 2021-03-31 07:20 | disposition short-term general hospital (02) | DRG 639 ==
LOC: ED 23:12 → ICU 03-31 02:31
PROVIDERS: ADMIT General Practice; ATTEND General Practice
DX: E10.10 Type 1 diabetes mellitus with ketoacidosis without coma (principal); R41.82 Altered mental status, unspecified; R79.89 Other specified abnormal findings of blood chemistry; Z85.3 Personal history of malignant neoplasm of breast; Z79.899 Other long term (current) drug therapy; I10 Essential (primary) hypertension; E78.00 Pure hypercholesterolemia, unspecified; Z20.828 Contact with and (suspected) exposure to other viral communicable diseases; Z86.79 Personal history of other diseases of the circulatory system
CPT/HCPCS: 36000; 36415; 36600; 51702; 71045; 80048; 80053; 81001; 82375; 82803; 82805; 82947; 83605; 83735; 84100; 84484; 85025; 87040; 87077; 87086; 87186; 93005; 93041; 94760; 96360; 96361; 96365; 96367; 96374; 96375; 96376; 99285; 99291; 99292; G0480; U0003; 80307; J0610; J0696; J1815

== ENCOUNTER 2021-04-07 13:18 | Emergency (ER) | payer MEDICARE ==
[2021-04-07] MEDS ORDERED: Amidate 20 MG/10 ML IV ONE ×2 (13:19)
[2021-04-07] MEDS ORDERED: LEVOPHED 4 MG/4 ML 4,000 MCG in Dextrose 5%/Water IV Soln. 500 ML 500 ML IV ONE (13:19)
[2021-04-07] MEDS ORDERED: HUMULIN R ONE ×2 (13:27→16:02)
[2021-04-07] MEDS ORDERED: Sodium Chloride 0.9% 1000 ML 1,000 ML IV STA (13:29)
[2021-04-07] MEDS ORDERED: HUMULIN R IV ONE ×2 (13:30→15:31)
[2021-04-07] MEDS ORDERED: HUMALOG SQ ONE (13:32)
[2021-04-07 13:36] LABS: Hematocrit 36.6 % (35-47); Hemoglobin 9.8 gm/dl (12.0-16.0); Mean Cell Volume 110.2 fl (78-100); Mean Corpuscular Hemoglobin 29.5 pg (26-32); Mean Corpuscular Hgb Concent. 26.8 g/dl (32-36); Mean Platelet Volume 10.6 fl (7.5-11.0); Platelet Count 297 K/mm3 (150-450); Red Blood Count 3.32 M/mm3 (4.1-5.4); Red Cell Distribution Width 15.6 % (11.5-14.0); White Blood Count 20.7 K/mm3 (4.0-10.5)
[2021-04-07] MEDS ORDERED: Sodium Chloride 0.9% 1000 ML 1,000 ML ONE ×4 (13:41→17:05)
[2021-04-07 13:50] LABS: ALBUMIN 3.7 g/dL (3.5-5.0); ALKALINE PHOSPHATASE 85 U/L (38-126); BLOOD UREA NITROGEN 25 mg/dL (7-17); CHLORIDE 93 mmol/L (98-107); Calcium 8.6 mg/dL (8.4-10.2); Creatinine 1 2.91 mg/dL (0.52-1.04); EST GLOMERULAR FILTRATION RATE 17.1 ML/MIN; SGOT/AST 29 U/L (14-36); SGPT/ALT 18 U/L (0-35); SODIUM 133 mmol/L (137-145); Total Protein 6.2 g/dL (6.3-8.2)
[2021-04-07 13:54] LABS: Potassium 7.3 mmol/L (3.5-5.1)
[2021-04-07] MEDS ORDERED: SODIUM BICARBONATE 50 MEQ/50 ML ABBOJECT IV ONE (13:54)
[2021-04-07 13:55] LABS: Carbon Dioxide < 5 mmol/L (22-30)
[2021-04-07 13:59] LABS: Glucose 1135 mg/dL (74-106)
[2021-04-07] MEDS ORDERED: HUMULIN R INSULIN (FOR DRIPS)** 100 UNITS in Sodium Chloride 0.9% 100 ML BAG 100 ML IV ONE (14:00)
[2021-04-07] MEDS ORDERED: SUBLIMAZE 100 MCG/2 ML ONE ×2 (14:24→17:05)
[2021-04-07] MEDS ORDERED: Sodium Chloride 0.9% 250 ML 250 ML IV ONE (14:24)
[2021-04-07] MEDS ORDERED: Versed 50 MG/ 10 Ml MDV ONE (14:24)
[2021-04-07] MEDS ORDERED: Merrem 1 GM 1 G in Sodium Chloride 100ML MINI-BAG PLUS 100 ML IV ONE (14:42)
[2021-04-07] MEDS ORDERED: Merrem 1 GM IV ONE (14:46)
[2021-04-07] MEDS ORDERED: Sodium Chloride 100ML MINI-BAG PLUS 100 ML IV ONE (14:46)
[2021-04-07 15:28] LABS: BAND 8 % (0.0-2.0); Lymphocytes 6 % (24-44); Monocyte 3 % (0.0-12.0); Neutrophils 83 % (36.0-66.0); Total Cells Counted 100
[2021-04-07 15:34] LABS: Glucose 943 mg/dL (74-106)
[2021-04-07 15:35] LABS: BLOOD UREA NITROGEN 25 mg/dL (7-17); CHLORIDE 100 mmol/L (98-107); Creatinine 1 2.73 mg/dL (0.52-1.04); EST GLOMERULAR FILTRATION RATE 18.4 ML/MIN; Potassium 5.1 mmol/L (3.5-5.1); SODIUM 138 mmol/L (137-145)
[2021-04-07 15:36] LABS: Calcium 8.2 mg/dL (8.4-10.2); Carbon Dioxide < 5 mmol/L (22-30)
[2021-04-07 15:38] LABS: Platelet Estimate NORMAL (NORMAL)
[2021-04-07 15:39] LABS: Hypochromia 1+; Polychromasia 1+
[2021-04-07 15:40] LABS: Appearance SLIGHTLY CLOUDY (CLEAR); Bilirubin NEGATIVE (NEGATIVE); Blood MODERATE Ery/ul (0-5); Epithelial Cells RARE /HPF (FEW); Glucose >=500 mg/dL (NEGATIVE); Hyaline Casts 0-2 /LPF (0-2); Ketones SMALL (NEGATIVE); Leukocyte Esterase NEGATIVE (NEGATIVE); Mucus SLIGHT /HPF (NEGATIVE); Nitrite NEGATIVE (NEGATIVE); Protein,Urine Dip 30 (Negative); RBC 0-2 /HPF (0-2); Specific Gravity 1.021 (1.005-1.025); Urobilinogen NEGATIVE mg/dL (0-1)
[2021-04-07 15:45] LABS: Bacteria NONE SEEN /HPF (NEGATIVE)
[2021-04-07 16:16] VITALS: O2SAT 100
[2021-04-07 16:22] LABS: A-aADO2 526; ABG HEMOGLOBIN 9.6; ABG POTASSIUM 5.2 (3.5-5.1); ARTERIAL BLD GAS TIDAL VOLUME 480 cc; ARTERIAL BLOOD GAS BASE EXCESS -24.4 (-2.0-2.0); ARTERIAL BLOOD GAS FIO2 100 %; ARTERIAL BLOOD GAS PO2 168 mmHg (75-100); ARTERIAL BLOOD GAS VENT MODE A/C; CARBOXYHEMOGLOBIN 6.6 % THgb (0.0-6.9); HCO3- 4.2 (22-28); HGB O2 SAT 92.2 g/dF (94-100); Lactic Acid 7.2 (0.4-2.0); Methhemoglobin 1.2 % (1.4-1.5)
[2021-04-07 16:23] LABS: ARTERIAL BLOOD GAS pH 7.05 (7.35-7.45)
[2021-04-07 16:26] LABS: ABG SITE LEFT FEMORAL; ARTERIAL BLOOD GAS PCO2 15 mmHg (35-45)
--- NOTE | 2021-04-07 16:42 | ERPHSYRPT ---
- History of Present Illness Source: EMS Exam Limitations: clinical condition Patient Subjective Stated Complaint: pt brougth by ambulance for hypergylcemia,ems states her BS read high on monitor, she has decrease mental status. Triage Nursing Assessment: pt moans to painful stimuli, resp shallow, skin w/d/p. has NRB in place at 100%, no edema noted, has port a cath to right side of chest. Physician History: 66 yo wf found down in home brought in by [facility] ambulance service obtunded w glucose >500. Pt obtunded upon arrival wo IV access. Sats good but maintaining airway. R subclavian port accessed and NS bolus started. Pt given 15units sq Humalog and 15units IV Regular insulin. L subclavian central line started per ER physician w sterile procedure wo comps. Due to pt's obtunded state it was decided to intubate. Pt given 15mg IV Etomidate and DL'ed per ER physician w Mac4 blade and also Miller4 blade. I was unable to visualize her cords, so RT looked w Glidescope w cords also not visualized. Pt nasally intubate w #[id number] per ER physician/Good BBS/+ET CO2. 100umg IV Fentanyl given after intubation. and pt experienced hypotension which was treated w fluids/Levafed drip. Insulin drip started at 10U/Hr. Timing/Duration: today Severity: severe Associated Symptoms: other (Unable to get Hx) Allergies/Adverse Reactions: No Known Drug Allergies Allergy (Verified 08/28/19 18:23) Home Medications: Insulin Glargine,Hum.rec.anlog [Zahra Martin] 1 unit SQ UD 03/31/21 [History] Insulin Lispro [Humalog] 16 unit SQ AC 03/31/21 [History] Levothyroxine Sodium [Euthyrox] 88 mcg PO DAILY 03/31/21 [History] Metoprolol Succinate 25 mg PO DAILY 03/31/21 [History] Paroxetine HCl [Paxil] 20 mg PO DAILY 03/31/21 [History] Potassium Chloride 40 meq PO DAILY 03/31/21 [History] Rosuvastatin Calcium 20 mg PO DAILY 03/31/21 [History] Hx Tetanus, Diphtheria Vaccination/Date Given: Yes Hx Influenza Vaccination/Date Given: No Hx Pneumococcal Vaccination/Date Given: No Travel Risk - International Travel Have you traveled outside of the country in past 3 weeks: No - Coronavirus Screening Are you exhibiting any of the following symptoms?: No Close contact with a COVID-19 positive Pt in past 14-21 Days: No - Vaccine Status Have you recieved a Covid-19 vaccination: No Director Of Cath Lab: Unknown - Vaccination Dates Date of 2cond Vaccination (if applicable): unknown Dates if Unknown: unknown - Review of Systems All Other Systems: Unable due to condition - Past Medical History Pertinent Past Medical History: Yes Neurological History: No Pertinent History ENT History: No Pertinent History Cardiac History: Coronary Artery Disease, High Cholesterol, Hypertension Respiratory History: No Pertinent History Endocrine Medical History: Diabetes Type I Musculoskeletal History: Arthritis GI Medical History: Ulcer History: Renal Disease, Other Psycho-Social History: No Pertinent History Female Reproductive Disorders: Breast Cancer Other Medical History: anemia, " stage 3 renal" , diabetes 2 - Past Surgical History Past Surgical History: Yes Neuro Surgical History: No Pertinent History Cardiac: Cardiac Catheterization Respiratory: No Pertinent History Gastrointestinal: Cholecystectomy Genitourinary: No Pertinent History Musculoskeletal: No Pertinent History Female Surgical History: Mastectomy Other Surgical History: colonoscopy - Social History Smoking Status: Never smoker Exposure to second hand smoke: No Drug Use: none Patient Lives Alone: No Significant Family History: no pertinent family hx - Female History Hx Last Menstrual Period: post Hx Now: No - Nursing Vital Signs Nursing Vital Signs: Initial Vital Signs O2 Sat by Pulse Oximetry 94 L 04/07/21 13:19 Pain Scale Pain Intensity 0 - Physical Exam General Appearance: severe distress Eye Exam: PERRL/EOMI Ears, Nose, Throat Exam: dry mucous membranes Neck Exam: normal inspection Respiratory Exam: normal breath sounds, lungs clear, airway intact, No respiratory distress Cardiovascular Exam: tachycardia, No murmur Gastrointestinal/Abdomen Exam: soft Extremity Exam: normal inspection Neurologic Exam: other (Pt obtunded) Skin Exam: normal color, warm, dry Lymphatic Exam: No adenopathy SpO2 Interpretation: normal SpO2: 100 O2 Delivery: Oxymask Procedures - Central Line Central Line Lumen: triple Central Line Procedure: chlorahexadine prep, sterile drapes applied, sterile dressing applied, Seldinger Technique Central Line Postion: subclavian (L) Anesthesia: 1% Lidocaine cc's of anesthesia: 5 Ultrasound Guided Placement: No Complications: none Central Line Post Position: sutured, good blood return, position confirmed w/ CXR, chest x-ray ordered - Intubation Intubation Indications: airway protection Intubation Method: nasotracheal Tube Size (cm): 7.0 Medications: Etomidate Endotracheal Tube Confirmation: bilateral breath sounds, positive end tidal CO2, good rise & fall of chest, stable or inc of O2 sat Intubation Complications: oral-unsuccessful attempt Performed By: ED Physician Post Intubation Xray: Yes - Course Nursing assessment & vital signs reviewed: Yes EKG Interpreted by Me: RATE (Sinus tach/R 116/ST depression V3-V5/LAFB/Prolonged QTc) - Radiology Exams Chest X-ray Interpretation: Interpreted by me (Blunting of R costophrenic angle/L subclavian central line/ET tube/No infiltrate or PTX/R subclavian port) - CT Exams Head CT Interpretation: Tele-radiologist Report (NEG) Ordered Tests: Active Orders 24 hr Category Date Time Status Gastric Tube Insertion STAT Care 04/07/21 14:44 Completed CHEST 1 VIEW (PORTABLE) Stat Exams 04/07/21 13:30 Completed HEAD WITHOUT CONTRAST [CT] Stat Exams 04/07/21 14:26 Completed ARTERIAL BLOOD GASES Urgent Lab 04/07/21 14:53 Completed BLOOD CULTURE Stat Lab 04/07/21 15:00 Received BMP Stat Lab 04/07/21 15:00 Completed CBC W DIFF Stat Lab 04/07/21 13:30 Completed CMP Stat Lab 04/07/21 13:30 Completed CMP Stat Lab 04/07/21 16:59 Completed CULTURE,URINE Stat Lab 04/07/21 13:57 Received Lactic Acid Routine Lab 04/07/21 16:55 Completed Lactic Acid Stat Lab 04/07/21 18:26 Received Lactic Acid Urgent Lab 04/07/21 14:53 Completed Manual Differential NC Stat Lab 04/07/21 13:30 Completed TROPONIN Stat Lab 04/07/21 13:30 Completed UA W/RFX UR CULTURE Stat Lab 04/07/21 13:57 Completed Medication Summary Discontinued Medications Generic Name Dose Route Start Last Admin Trade Name Freq PRN Reason Stop Dose Admin Fentanyl Citrate Confirm 04/07/21 14:24 Sublimaze 100 Mcg/2 Ml Administered 04/07/21 14:25 Dose 100 mcg .ROUTE .STK-MED ONE Fentanyl Citrate Confirm 04/07/21 17:05 Sublimaze 100 Mcg/2 Ml Administered 04/07/21 17:06 Dose 100 mcg .ROUTE .STK-MED ONE Sodium Chloride 1,000 mls @ 999 mls/hr 04/07/21 13:29 04/07/21 15:01 Sodium Chloride 0.9% 1000 Ml IV 04/07/21 14:29 Infused .Q1H1M STA Infusion Insulin Human Regular 100 101 mls @ ud 04/07/21 14:00 units/ Sodium Chloride IV 04/07/21 14:01 .STK-MED ONE Sodium Chloride Confirm 04/07/21 13:41 Sodium Chloride 0.9% 1000 Ml Administered 04/07/21 13:42 Dose 1,000 mls @ ud .ROUTE .STK-MED ONE Sodium Chloride Confirm 04/07/21 14:24 Sodium Chloride 0.9% 250 Ml Administered 04/07/21 14:25 Dose 250 mls @ ud IV .STK-MED ONE Meropenem 1 g/ Sodium Chloride 100 mls @ 200 mls/hr 04/07/21 14:42 04/07/21 15:18 IV 04/07/21 15:11 200 mls/hr STAT ONE Administration Sodium Chloride Confirm 04/07/21 14:41 Sodium Chloride 0.9% 1000 Ml Administered 04/07/21 14:42 Dose 1,000 mls @ ud .ROUTE .STK-MED ONE Sodium Chloride Confirm 04/07/21 14:46 Sodium Chloride 100ml Mini-Bag Plus Administered 04/07/21 14:47 Dose 100 mls @ ud IV .STK-MED ONE Sodium Chloride Confirm 04/07/21 16:09 Sodium Chloride 0.9% 1000 Ml Administered 04/07/21 16:10 Dose 1,000 mls @ ud .ROUTE .STK-MED ONE Sodium Chloride Confirm 04/07/21 17:05 Sodium Chloride 0.9% 1000 Ml Administered 04/07/21 17:06 Dose 1,000 mls @ ud .ROUTE .STK-MED ONE Potassium Chloride/Sodium Chloride Confirm 04/07/21 17:30 Sodium Chloride 0.9% W/ 20 Meq Kcl/Liter Administered 04/07/21 17:31 Dose 1,000 mls @ ud IV .STK-MED ONE Insulin Human Lispro 15 unit 04/07/21 13:32 04/07/21 13:45 Humalog SQ 04/07/21 13:33 15 unit STAT ONE Administration Insulin Human Regular Confirm 04/07/21 13:27 Humulin R Administered 04/07/21 13:28 Dose 15 unit .ROUTE .STK-MED ONE Insulin Human Regular 15 unit 04/07/21 13:30 04/07/21 13:45 Humulin R IV 04/07/21 13:31 15 unit STAT ONE Administration Insulin Human Regular 15 unit 04/07/21 15:31 04/07/21 16:06 Humulin R IV 04/07/21 15:32 15 unit STAT ONE Administration Insulin Human Regular Confirm 04/07/21 16:02 Humulin R Administered 04/07/21 16:03 Dose 15 unit .ROUTE .STK-MED ONE Meropenem Confirm 04/07/21 14:46 Merrem 1 Gm Administered 04/07/21 14:47 Dose 1 g IV .STK-MED ONE Midazolam HCl Confirm 04/07/21 14:24 Versed 50 Mg/ 10 Ml Mdv Administered 04/07/21 14:25 Dose 50 mg .ROUTE .STK-MED ONE Sodium Bicarbonate Confirm 04/07/21 13:54 Sodium Bicarbonate 50 Meq/50 Ml Abboject Administered 04/07/21 13:55 Dose 100 meq IV .STK-MED ONE Lab/Rad Data: Laboratory Result Diagrams 04/07/21 13:30 04/07/21 16:59 Laboratory Results 04/07/21 04/07/21 04/07/21 Range/Units 16:59 16:55 15:00 WBC (4.0-10.5) K/mm3 RBC (4.1-5.4) M/mm3 Hgb (12.0-16.0) gm/dl Hct (35-47) % MCV (78-100) fl MCH (26-32) pg MCHC (32-36) g/dl RDW (11.5-14.0) % Plt Count (150-450) K/mm3 MPV (7.5-11.0) fl Segmented Neutrophils (36.0-66.0) % Band Neutrophils (0.0-2.0) % Lymphocytes (Manual) (24-44) % Monocytes (Manual) (0.0-12.0) % Hypochromia Platelet Estimate (NORMAL) RBC Morphology Polychromasia Puncture Site pCO2 (35-45) mmHg pO2 (75-100) mmHg Base Excess (-2.0-2.0) O2 Saturation (94-100) g/dF ABG pH (7.35-7.45) ABG HCO3 (22-28) ABG O2 Sat (Measured) (95-100) % Maxi Test A-a Gradient a/A Ratio Hemoglobin Carboxyhemoglobin (0.0-6.9) % THgb Methemoglobin (1.4-1.5) % Temperature C POC O2 Flow Rate % Vent Mode Tidal Volume cc PEEP cmH2O Sodium 139 138 (137-145) mmol/L Potassium 4.3 5.1 D (3.5-5.1) mmol/L Chloride 104 100 (98-107) mmol/L Carbon Dioxide 7 L* < 5 L* (22-30) mmol/L Anion Gap 33.2 H Not Reportable BUN 25 H 25 H (7-17) mg/dL Creatinine 2.54 H 2.73 H (0.52-1.04) mg/dL Estimated GFR 20.0 18.4 ML/MIN Glucose 721 H* 943 H* (74-106) mg/dL Lactic Acid 4.6 H (0.4-2.0) Calcium 7.3 L 8.2 L (8.4-10.2) mg/dL Total Bilirubin 0.20 (0.2-1.3) mg/dL AST 32 (14-36) U/L ALT 17 (0-35) U/L Alkaline Phosphatase 63 (38-126) U/L Troponin I (0.000-0.034) ng/mL Serum Total Protein 5.5 L (6.3-8.2) g/dL Albumin 3.0 L (3.5-5.0) g/dL Urine Color (YELLOW) Urine Appearance (CLEAR) Urine pH (5-6) Ur Specific [place] (1.005-1.025) Urine Protein (Negative) Urine Ketones (NEGATIVE) Urine Blood (0-5) Chandu/ul Urine Nitrite (NEGATIVE) Urine Bilirubin (NEGATIVE) Urine Urobilinogen (0-1) mg/dL Ur Leukocyte Esterase (NEGATIVE) Urine WBC (Auto) (0-5) /HPF Urine RBC (Auto) (0-2) /HPF U Hyaline Cast (Auto) (0-2) /LPF U Epithel Cells (Auto) (FEW) /HPF Urine Bacteria (Auto) (NEGATIVE) /HPF Urine Mucus (Auto) (NEGATIVE) /HPF Urine Culture Reflexed (NO) Urine Glucose (NEGATIVE) mg/dL 04/07/21 04/07/21 04/07/21 Range/Units 14:53 13:57 13:30 WBC (4.0-10.5) K/mm3 RBC (4.1-5.4) M/mm3 Hgb (12.0-16.0) gm/dl Hct (35-47) % MCV (78-100) fl MCH (26-32) pg MCHC (32-36) g/dl RDW (11.5-14.0) % Plt Count (150-450) K/mm3 MPV (7.5-11.0) fl Segmented Neutrophils (36.0-66.0) % Band Neutrophils (0.0-2.0) % Lymphocytes (Manual) (24-44) % Monocytes (Manual) (0.0-12.0) % Hypochromia Platelet Estimate (NORMAL) RBC Morphology Polychromasia Puncture Site LEFT FEMORAL pCO2 15 L* (35-45) mmHg pO2 168 H* (75-100) mmHg Base Excess -24.4 L (-2.0-2.0) O2 Saturation 92.2 L (94-100) g/dF ABG pH 7.05 L* (7.35-7.45) ABG HCO3 4.2 L* (22-28) ABG O2 Sat (Measured) 100.0 (95-100) % Maxi Test NOT APPLICABLE A-a Gradient 526 a/A Ratio 0.24 Hemoglobin 9.6 Carboxyhemoglobin 6.6 (0.0-6.9) % THgb Methemoglobin 1.2 L (1.4-1.5) % Temperature 37.0 C POC O2 Flow Rate 100 % Vent Mode A/C Tidal Volume 480 cc PEEP 5.0 cmH2O Sodium (137-145) mmol/L Potassium 5.2 H (3.5-5.1) mmol/L Chloride (98-107) mmol/L Carbon Dioxide (22-30) mmol/L Anion Gap BUN (7-17) mg/dL Creatinine (0.52-1.04) mg/dL Estimated GFR ML/MIN Glucose (74-106) mg/dL Lactic Acid 7.2 H (0.4-2.0) Calcium (8.4-10.2) mg/dL Total Bilirubin (0.2-1.3) mg/dL AST (14-36) U/L ALT (0-35) U/L Alkaline Phosphatase (38-126) U/L Troponin I 0.162 H* (0.000-0.034) ng/mL Serum Total Protein (6.3-8.2) g/dL Albumin (3.5-5.0) g/dL Urine Color YELLOW (YELLOW) Urine Appearance SLIGHTLY CLOUDY (CLEAR) Urine pH 5.0 (5-6) Ur Specific [place] 1.021 (1.005-1.025) Urine Protein 30 (Negative) Urine Ketones SMALL (NEGATIVE) Urine Blood MODERATE (0-5) Chandu/ul Urine Nitrite NEGATIVE (NEGATIVE) Urine Bilirubin NEGATIVE (NEGATIVE) Urine Urobilinogen NEGATIVE (0-1) mg/dL Ur Leukocyte Esterase NEGATIVE (NEGATIVE) Urine WBC (Auto) 6-10 (0-5) /HPF Urine RBC (Auto) 0-2 (0-2) /HPF U Hyaline Cast (Auto) 0-2 (0-2) /LPF U Epithel Cells (Auto) RARE (FEW) /HPF Urine Bacteria (Auto) NONE SEEN (NEGATIVE) /HPF Urine Mucus (Auto) SLIGHT (NEGATIVE) /HPF Urine Culture Reflexed ORDERED SEPARATELY (NO) Urine Glucose >=500 (NEGATIVE) mg/dL 04/07/21 04/07/21 Range/Units 13:30 13:30 WBC 20.7 H (4.0-10.5) K/mm3 RBC 3.32 L (4.1-5.4) M/mm3 Hgb 9.8 L (12.0-16.0) gm/dl Hct 36.6 (35-47) % MCV 110.2 H (78-100) fl MCH 29.5 (26-32) pg MCHC 26.8 L (32-36) g/dl RDW 15.6 H (11.5-14.0) % Plt Count 297 (150-450) K/mm3 MPV 10.6 (7.5-11.0) fl Segmented Neutrophils 83 H (36.0-66.0) % Band Neutrophils 8 H (0.0-2.0) % Lymphocytes (Manual) 6 L (24-44) % Monocytes (Manual) 3 (0.0-12.0) % Hypochromia 1+ Platelet Estimate NORMAL (NORMAL) RBC Morphology NORMAL Polychromasia 1+ Puncture Site pCO2 (35-45) mmHg pO2 (75-100) mmHg Base Excess (-2.0-2.0) O2 Saturation (94-100) g/dF ABG pH (7.35-7.45) ABG HCO3 (22-28) ABG O2 Sat (Measured) (95-100) % Maxi Test A-a Gradient a/A Ratio Hemoglobin Carboxyhemoglobin (0.0-6.9) % THgb Methemoglobin (1.4-1.5) % Temperature C POC O2 Flow Rate % Vent Mode Tidal Volume cc PEEP cmH2O Sodium 133 L (137-145) mmol/L Potassium 7.3 H* (3.5-5.1) mmol/L Chloride 93 L (98-107) mmol/L Carbon Dioxide < 5 L* (22-30) mmol/L Anion Gap BUN 25 H (7-17) mg/dL Creatinine 2.91 H (0.52-1.04) mg/dL Estimated GFR 17.1 ML/MIN Glucose 1135 H* (74-106) mg/dL Lactic Acid (0.4-2.0) Calcium 8.6 (8.4-10.2) mg/dL Total Bilirubin 0.30 (0.2-1.3) mg/dL AST 29 (14-36) U/L ALT 18 (0-35) U/L Alkaline Phosphatase 85 (38-126) U/L Troponin I (0.000-0.034) ng/mL Serum Total Protein 6.2 L (6.3-8.2) g/dL Albumin 3.7 (3.5-5.0) g/dL Urine Color (YELLOW) Urine Appearance (CLEAR) Urine pH (5-6) Ur Specific [place] (1.005-1.025) Urine Protein (Negative) Urine Ketones (NEGATIVE) Urine Blood (0-5) Chandu/ul Urine Nitrite (NEGATIVE) Urine Bilirubin (NEGATIVE) Urine Urobilinogen (0-1) mg/dL Ur Leukocyte Esterase (NEGATIVE) Urine WBC (Auto) (0-5) /HPF Urine RBC (Auto) (0-2) /HPF U Hyaline Cast (Auto) (0-2) /LPF U Epithel Cells (Auto) (FEW) /HPF Urine Bacteria (Auto) (NEGATIVE) /HPF Urine Mucus (Auto) (NEGATIVE) /HPF Urine Culture Reflexed (NO) Urine Glucose (NEGATIVE) mg/dL - Progress Progress: improved Progress Note: 04/07/21 20:12 66 yo wf obtunded/nasally intubated per ER physician/L subclavian line per ER physician Hyperkalemia treated w NACO3 Hyperglycemia treated w 15units SQ Regular Humalog/15units IV regular insulin/Insulin drip 10U/HR/subsequent 15units IV regular insulin Hyperosmolar coma treated w 4L NS bolus Hypotension after intubation treated w fluids/Levafed drip Possible sepsis treated w 1gm Meropenem [facility] but stable when care assumed by ambulance service w Insulin drip 10u/hr/NS w20KCl at 200ml/hr/Levafed drip at 10mcg/hr Counseled pt/family regarding: lab results, diagnosis, rad results - Departure Departure Disposition: Transfer Clinical Impression: Hyperosmolar coma, NSTEMI (non-ST elevated myocardial infarction), Sepsis Condition: Critical Critical Care Time: Yes Critical Care Time(excluding separately billable procedures): Critcal > 194 mins Referrals: PATTIE HAQUE MD [Primary Care Provider] -
[2021-04-07 17:12] LABS: ANION GAP 33.2 MEQ/L (5-15); BILIRUBIN,TOTAL 0.2 mg/dL (0.2-1.3); Calcium 7.3 mg/dL (8.4-10.2); Creatinine 1 2.54 mg/dL (0.52-1.04); Potassium 4.3 mmol/L (3.5-5.1); Total Protein 5.5 g/dL (6.3-8.2)
[2021-04-07 17:15] VITALS: BP 88/41; PULSE 95
[2021-04-07] MEDS ORDERED: Sodium Chloride 0.9% W/ 20 mEq KCl/LITER 1,000 ML IV ONE (17:30)
--- NOTE | 2021-04-07 19:38 | XRAY ---
Indication: Tube placement. Comparison: March 30, 2021. Portable chest demonstrates new endotracheal tube tip 5 cm above devaughn and new left subclavian central venous access catheter with tip projecting over SVC without complications. Remaining heart and lungs unremarkable with stable right Port-A-Cath.
--- NOTE | 2021-04-07 19:55 | XRAY ---
Indication: Found unconscious. Multiple contiguous axial images obtained through the head without contrast. Comparison: October 06, 2014. Age-appropriate global atrophy. No acute intracranial hemorrhage, abnormal extra-axial fluid collection, or mass effect. Fourth ventricle is midline without hydrocephalus. Bony calvarium intact. Moderate mucosal thickening of both ethmoid and lesser degree right maxillary sinuses. Mastoid air cells are clear. New incompletely visualized NG tube and endotracheal tube. Impression: Continued negative CT head without contrast exam. Incidental paranasal sinus disease, NG tube, and endotracheal tube. Comment: Preliminary interpretation was made by [facility]. No critical discrepancy.
== END 2021-04-07 17:59 | disposition short-term general hospital (02) ==
LOC: ED 13:18
DX: E11.01 Type 2 diabetes mellitus with hyperosmolarity with coma (principal); I10 Essential (primary) hypertension; A41.9 Sepsis, unspecified organism; I21.4 Non-ST elevation (NSTEMI) myocardial infarction; E78.00 Pure hypercholesterolemia, unspecified; Z79.899 Other long term (current) drug therapy; Z79.4 Long term (current) use of insulin
CPT/HCPCS: 31500; 36415; 36600; 51702; 70450; 71045; 80048; 80053; 81001; 82375; 82803; 83605; 84484; 85025; 87040; 87086; 93005; 93041; 94002; 94760; 96360; 96361; 96365; 96366; 96367; 96368; 96372; 96374; 96376; 99285; 99291; 99292; J1815; J1817; J2250; J3010

== ENCOUNTER 2021-06-15 10:16 | Inpatient (IN) | payer MEDICARE ==
[2021-06-15] MEDS ORDERED: DUONEB 0.5-3 MG/3 ml Neb IH ONE ×2 (10:48→11:14)
--- NOTE | 2021-06-15 11:06 | XRAY ---
Indication: Cough. Comparison: April 07, 2021. Portable chest clear again with incidental right costophrenic angle calcified granuloma. Heart not enlarged again with right Port-A-Cath. Bony thorax intact again with mild osteopenia and degenerative changes. Impression: Continued nonacute chest with chronic features.
[2021-06-15 11:37] LABS: Absolute Neutrophil Ct (ANC) 12.56 (1.4-6.9); Basophil (Absolute #) 0 (0-0.4); Eosinophil (Absolute #) 0 (0-0.5); Hematocrit 33.2 % (35-47); Hemoglobin 10.3 gm/dl (12.0-16.0); Lymphocyte (Absolute #) 1.48 (1.0-4.6); Mean Cell Volume 90.2 fl (78-100); Mean Platelet Volume 9.5 fl (7.5-11.0); Monocyte (Absolute #) 0.83 (0.0-1.3); Monocytes % 5.6 % (0.0-12.0); Neutrophil % 84.4 % (36.0-66.0); Platelet Count 336 K/mm3 (150-450); Red Blood Count 3.68 M/mm3 (4.1-5.4); Red Cell Distribution Width 16.9 % (11.5-14.0); White Blood Count 14.9 K/mm3 (4.0-10.5)
[2021-06-15 11:44] LABS: Appearance CLOUDY (CLEAR); Bacteria PACKED /HPF (NEGATIVE); Bilirubin NEGATIVE (NEGATIVE); Blood SMALL Ery/ul (0-5); Epithelial Cells RARE /HPF (FEW); Glucose >=500 mg/dL (NEGATIVE); Ketones TRACE (NEGATIVE); Leukocyte Esterase LARGE (NEGATIVE); Nitrite NEGATIVE (NEGATIVE); Non-Squamous Epithelial Cells RARE /HPF (FEW); Protein,Urine Dip 100 (Negative); Specific Gravity 1.015 (1.005-1.025); Urobilinogen NEGATIVE mg/dL (0-1); WBC >100 /HPF (0-5)
[2021-06-15 11:55] LABS: ALBUMIN 3.8 g/dL (3.5-5.0); ANION GAP 28.6 MEQ/L (5-15); BILIRUBIN,TOTAL 0.6 mg/dL (0.2-1.3); Calcium 8.4 mg/dL (8.4-10.2); Creatinine 1 9.38 mg/dL (0.52-1.04); EST GLOMERULAR FILTRATION RATE 4.4 ML/MIN; MAGNESIUM 2.2 mg/dL (1.6-2.3); Total Protein 8.4 g/dL (6.3-8.2)
[2021-06-15 11:56] LABS: Potassium 6.1 mmol/L (3.5-5.1)
[2021-06-15] MEDS ORDERED: Sodium Chloride 0.9% 1000 ML 1,000 ML IV STA ×2 (11:59→12:25)
[2021-06-15] MEDS ORDERED: Zofran 4 MG/2 ML VIAL IV ONE (11:59)
[2021-06-15 12:00] LABS: A-aADO2 3; ABG HEMOGLOBIN 10.9; ARTERIAL BLOOD GAS BASE EXCESS -14.3 (-2.0-2.0); ARTERIAL BLOOD GAS FIO2 21 %; ARTERIAL BLOOD GAS PO2 124 mmHg (75-100); ARTERIAL BLOOD GAS pH 7.32 (7.35-7.45); CARBOXYHEMOGLOBIN 3.2 % THgb (0.0-6.9); HCO3- 9.3 (22-28); HGB O2 SAT 95.7 g/dF (94-100)
[2021-06-15] MEDS ORDERED: Zofran 4 MG/2 ML VIAL ONE (12:00)
[2021-06-15] MEDS ORDERED: Sodium Chloride 0.9% 1000 ML 1,000 ML ONE ×2 (12:00→12:46)
[2021-06-15 12:01] LABS: ARTERIAL BLOOD GAS PCO2 18 mmHg (35-45)
[2021-06-15 12:02] LABS: ABG POTASSIUM 6.3 (3.5-5.1); ABG SITE rb
[2021-06-15] MEDS ORDERED: ROCEPHIN 1 Gm-D5w 50 ml Bag** 1 G/50 ML IVPB IV STA (12:24)
[2021-06-15] MEDS ORDERED: VELTASSA PO STA (12:25)
[2021-06-15] MEDS ORDERED: SODIUM BICARBONATE 50 MEQ/50 ML ABBOJECT IV ONE ×2 (12:26→12:46)
[2021-06-15] MEDS ORDERED: Calcium Gluconate 10% 1000 MG IV ONE ×2 (12:26→12:46)
--- NOTE | 2021-06-15 12:36 | ERPHSYRPT ---
- History of Present Illness Time Seen by Provider: 06/15/21 10:30 Source: patient Exam Limitations: no limitations Patient Subjective Stated Complaint: Dr. Aleman called and stated that he was sending this pt to the ER due to possible DKA and dehydration, pt presents to the ER with c/o right ear draining and cough Triage Nursing Assessment: Pt brought to the ER by her daughter, hypertensive, tachycardic, denies pain, weak, non productive wet sounding cough, lungs clear, skin n/w/d, pulses normal Physician History: 66 years old female with history of diabetes mellitus, hypertension, hypothyroidism, multiple DKA's in the past, vaccinated against COVID-19 presented in the ER with 2 to 3 days history of generalized weakness fatigue and tiredness with associated minimal productive cough without any chest pain or shortness of breath. Patient reports she is not feeling well and went to her primary care doctor who sent patient in the ER as she is prone to go quickly into DKA and renal failure. She denies any diarrhea or vomiting. No abdominal pain. Timing/Duration: day(s) (3), constant, gradual onset, worse Severity: moderate Associated Symptoms: cough, headaches, malaise, weakness, No nausea, No abdominal pain, No shortness of breath, No heartburn, No chest pain Allergies/Adverse Reactions: No Known Drug Allergies Allergy (Verified 06/15/21 10:38) Home Medications: Insulin Glargine,Hum.rec.anlog [Zahra Martin] 30 unit SQ HS 03/31/21 [History] Insulin Lispro [Humalog] 10 unit SQ AC 03/31/21 [History] Levothyroxine Sodium [Euthyrox] 88 mcg PO DAILY 03/31/21 [History] Paroxetine HCl [Paxil] 20 mg PO DAILY 03/31/21 [History] Potassium Chloride 20 meq PO BID 03/31/21 [History] Rosuvastatin Calcium 20 mg PO DAILY 03/31/21 [History] Tramadol HCl/Acetaminophen [Tramadol-Acetaminophn 37.5-325] 37.5 each PO BID 06/15/21 [History] lisinopriL [Lisinopril] 5 mg PO DAILY 06/15/21 [History] Hx Tetanus, Diphtheria Vaccination/Date Given: Yes Hx Influenza Vaccination/Date Given: No Hx Pneumococcal Vaccination/Date Given: No Travel Risk - International Travel Have you traveled outside of the country in past 3 weeks: No - Coronavirus Screening Are you exhibiting any of the following symptoms?: Yes Symptoms: Cough: New Onset Close contact with a COVID-19 positive Pt in past 14-21 Days: No - Vaccine Status Have you recieved a Covid-19 vaccination: Yes 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 - Vaccination Dates Date of 2cond Vaccination (if applicable): unknown Dates if Unknown: unknown - Review of Systems Constitutional: Fatigue, Weakness Eyes: No Symptoms Ears, Nose, & Throat: Ear Discharge Respiratory: Cough, Wheezing Cardiac: No Symptoms Abdominal/Gastrointestinal: No Symptoms Genitourinary Symptoms: No Symptoms Musculoskeletal: Myalgias Neurological: Dizziness Psychological: No Symptoms Endocrine: No Symptoms Hematologic/Lymphatic: No Symptoms Immunological/Allergic: No Symptoms - Past Medical History Pertinent Past Medical History: Yes Neurological History: No Pertinent History ENT History: No Pertinent History Cardiac History: Coronary Artery Disease, High Cholesterol, Hypertension Respiratory History: No Pertinent History Endocrine Medical History: Diabetes Type II Musculoskeletal History: Arthritis GI Medical History: Ulcer History: Renal Disease, Other Psycho-Social History: No Pertinent History Female Reproductive Disorders: Breast Cancer Other Medical History: anemia, " stage 3 renal" , diabetes 2 - Past Surgical History Past Surgical History: Yes Neuro Surgical History: No Pertinent History Cardiac: Cardiac Catheterization Respiratory: No Pertinent History Gastrointestinal: Cholecystectomy Genitourinary: No Pertinent History Musculoskeletal: No Pertinent History Female Surgical History: Mastectomy Other Surgical History: colonoscopy - Social History Smoking Status: Never smoker Exposure to second hand smoke: No Drug Use: none Patient Lives Alone: No Significant Family History: no pertinent family hx - Female History Hx Now: No - Nursing Vital Signs Nursing Vital Signs: Initial Vital Signs Temperature 96.9 F 06/15/21 10:25 Pulse Rate 102 H 06/15/21 10:25 Respiratory Rate 20 06/15/21 10:25 Blood Pressure 152/77 06/15/21 10:25 O2 Sat by Pulse Oximetry 100 06/15/21 10:25 Pain Scale Pain Intensity 0 - Physical Exam General Appearance: no apparent distress, alert, anxiety Eye Exam: PERRL/EOMI, eyes nml inspection Ears, Nose, Throat Exam: pharynx normal Neck Exam: normal inspection, supple, full range of motion Respiratory Exam: rhonchi, No chest tenderness, No respiratory distress, No accessory muscle use Cardiovascular Exam: regular rate/rhythm, normal heart sounds Gastrointestinal/Abdomen Exam: soft, normal bowel sounds, No tenderness Back Exam: normal inspection, normal range of motion Extremity Exam: normal inspection, normal range of motion Neurologic Exam: alert, oriented x 3, cooperative, 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, normal mood/affect Skin Exam: normal color SpO2 Interpretation: normal SpO2: 98 O2 Delivery: Room Air Ordered Tests: Medication Summary Discontinued Medications Generic Name Dose Route Start Last Admin Trade Name Freq PRN Reason Stop Dose Admin Acetaminophen 650 mg 06/15/21 15:26 06/20/21 08:02 Tylenol 325 Mg PO 07/15/21 15:25 650 mg Q4H PRN PRN Administration PAIN AND/OR FEVER Acetaminophen 325 mg 06/16/21 10:00 06/16/21 10:16 Tylenol 325 Mg PO 07/16/21 09:59 325 mg BID BRAYDEN Administration Albuterol Sulfate 2.5 mg 06/18/21 12:05 Proventil 2.5 Mg/3 Ml Neb IH 07/18/21 12:04 Q4H PRN PRN SHORTNESS OF BREATH/WHEEZING Albuterol/Ipratropium 3 ml 06/15/21 10:48 06/15/21 11:28 Duoneb 0.5-3 Mg/3 Ml Neb IH 06/15/21 10:49 3 ml STAT ONE Administration Albuterol/Ipratropium Confirm 06/15/21 11:14 Duoneb 0.5-3 Mg/3 Ml Neb Administered 06/15/21 11:15 Dose 3 ml IH .STK-MED ONE Benzonatate 200 mg 06/19/21 12:25 06/19/21 13:37 Tessalon Perles 100 Mg PO 07/19/21 12:24 200 mg QID PRN PRN Administration COUGH Calcium Gluconate 1,000 mg 06/15/21 12:26 06/15/21 12:50 Calcium Gluconate 10% 1000 Mg IV 06/15/21 12:27 1,000 mg STAT ONE Administration Calcium Gluconate Confirm 06/15/21 12:46 Calcium Gluconate 10% 1000 Mg Administered 06/15/21 12:47 Dose 1,000 mg IV .STK-MED ONE Dextrose Confirm 06/15/21 23:49 D50w 50 Ml Abboject Administered 06/15/21 23:50 Dose 50 ml IV .STK-MED ONE Dextrose 25 ml 06/15/21 23:45 06/16/21 05:09 D50w 50ml Vial IV 07/15/21 23:44 25 ml UD BRAYDEN Administration Dextrose Confirm 06/16/21 01:05 D50w 50 Ml Abboject Administered 06/16/21 01:06 Dose 50 ml IV .STK-MED ONE Dextrose Confirm 06/16/21 05:05 D50w 50 Ml Abboject Administered 06/16/21 05:06 Dose 50 ml IV .STK-MED ONE Dextrose 25 ml 06/16/21 07:15 06/16/21 19:29 D50w 50ml Vial IV 07/15/21 23:44 25 ml UD PRN Administration Dextrose Confirm 06/16/21 19:21 D50w 50 Ml Abboject Administered 06/16/21 19:22 Dose 100 ml IV .STK-MED ONE Dextrose 25 ml 06/17/21 09:38 D50w 50 Ml Abboject IV 07/17/21 09:37 UD PRN Enoxaparin Sodium 40 mg 06/15/21 16:00 06/20/21 10:10 Enoxaparin Sodium SQ 07/15/21 15:59 40 mg DAILY BRAYDEN Administration Guaifenesin/Dextromethorphan 10 ml 06/18/21 12:04 06/19/21 02:24 Robitussin-Dm Syrup PO 07/18/21 12:03 10 ml Q4H PRN PRN Administration COUGH Sodium Chloride 1,000 mls @ 999 mls/hr 06/15/21 11:59 06/15/21 13:16 Sodium Chloride 0.9% 1000 Ml IV 06/15/21 12:59 Infused .Q1H1M STA Infusion Sodium Chloride Confirm 06/15/21 12:00 Sodium Chloride 0.9% 1000 Ml Administered 06/15/21 12:01 Dose 1,000 mls @ ud .ROUTE .STK-MED ONE Ceftriaxone Sodium/Dextrose 1 g in 50 mls @ 100 mls/hr 06/15/21 12:24 06/15/21 13:35 Rocephin 1 Gm-D5w 50 Ml Bag IV 06/15/21 12:53 Infused STAT STA Infusion Sodium Chloride 1,000 mls @ 999 mls/hr 06/15/21 12:25 06/15/21 14:10 Sodium Chloride 0.9% 1000 Ml IV 06/15/21 13:25 Infused .Q1H1M STA Infusion Sodium Chloride Confirm 06/15/21 12:46 Sodium Chloride 0.9% 1000 Ml Administered 06/15/21 12:47 Dose 1,000 mls @ ud .ROUTE .STK-MED ONE Ceftriaxone Sodium/Dextrose Confirm 06/15/21 12:46 Rocephin 1 Gm-D5w 50 Ml Bag Administered 06/15/21 12:47 Dose 1 g in 50 mls @ ud IV .STK-MED ONE Sodium Chloride 1,000 mls @ 200 mls/hr 06/15/21 15:26 06/15/21 23:04 Sodium Chloride 0.9% 1000 Ml IV 06/16/21 01:25 Not Given .Q5H BRAYDEN Ceftriaxone Sodium/Dextrose 1 g in 50 mls @ 100 mls/hr 06/15/21 16:00 Rocephin 1 Gm-D5w 50 Ml Bag IV 06/18/21 15:59 DAILY BRAYDEN Ceftriaxone Sodium/Dextrose 1 g in 50 mls @ 100 mls/hr 06/16/21 10:00 06/17/21 09:17 Rocephin 1 Gm-D5w 50 Ml Bag IV 06/19/21 09:59 100 mls/hr DAILY BRAYDEN Administration Sodium Chloride 1,000 mls @ 150 mls/hr 06/15/21 01:00 06/16/21 01:14 Sodium Chloride 0.9% 1000 Ml IV 07/15/21 00:59 200 mls/hr .Q6H40M BRAYDEN Administration Insulin Human Regular 100 unit 100 mls @ 3 mls/hr 06/15/21 16:30 06/18/21 16:42 / Sodium Chloride IV 07/15/21 16:29 Not Given .Q24H BRAYDEN Dextrose/Sodium Chloride 1,000 mls @ 150 mls/hr 06/16/21 02:45 06/16/21 08:29 Dextrose 5% -0.45 Nacl 1000 Ml IV 07/16/21 02:44 200 mls/hr .Q6H40M BRAYDEN Administration Sodium Bicarbonate 100 meq/ 1,000 mls @ 250 mls/hr 06/16/21 02:45 06/18/21 16:42 Sodium Chloride IV 07/16/21 02:44 Not Given .Q4H BRAYDEN Ceftriaxone Sodium/Dextrose 1 g in 50 mls @ 100 mls/hr 06/16/21 10:00 Rocephin 1 Gm-D5w 50 Ml Bag IV 06/19/21 09:59 Q24H10 BRAYDEN Potassium Chloride/Dextrose/Sod Cl 1,000 mls @ 150 mls/hr 06/16/21 13:40 06/18/21 02:45 D5w/0.45ns W/ 20meq Kcl 1000 Ml IV 07/16/21 13:39 Infused .Q6H40M BRAYDEN Infusion Dextrose/Sodium Chloride 1,000 mls @ 150 mls/hr 06/17/21 16:00 06/18/21 02:44 Dextrose 5% -0.45 Nacl 1000 Ml IV 07/17/21 15:59 Not Given .Q6H40M BRAYDEN Piperacillin Sod/Tazobactam 100 mls @ 200 mls/hr 06/17/21 14:00 06/19/21 15:14 Sod 2.25 gm/ Sodium Chloride IV 07/17/21 13:59 Not Given Q8HT BRAYDEN Sodium Chloride 1,000 mls @ 150 mls/hr 06/17/21 17:45 06/20/21 10:10 Sodium Chloride 0.9% 1000 Ml IV 07/17/21 17:44 150 mls/hr .Q6H40M BRAYDEN Administration Meropenem 500 mg/ Sodium 100 mls @ 200 mls/hr 06/19/21 12:17 06/20/21 06:34 Chloride IV 07/19/21 12:16 200 mls/hr Q8HT BRAYDEN Administration Meropenem 500 mg/ Sodium 100 mls @ 200 mls/hr 06/20/21 18:00 Chloride IV 07/20/21 17:59 Q12H BRAYDEN Insulin Glargine 24 unit 06/16/21 22:00 06/19/21 22:01 Lantus Insulin SQ 07/16/21 21:59 24 unit HS BRAYDEN Administration Insulin Human Lispro 10 unit 06/16/21 11:30 06/16/21 16:36 Humalog SQ 07/16/21 11:29 10 unit AC BRAYDEN Administration Insulin Human Lispro 0 unit 06/17/21 11:40 06/19/21 13:35 Humalog SQ 07/17/21 11:39 3 unit UD PRN Administration HYPERGLYCEMIA Levothyroxine Sodium 88 mcg 06/16/21 10:00 06/20/21 10:11 Synthroid 88 Mcg PO 07/16/21 09:59 88 mcg DAILY BRAYDEN Administration Lisinopril 5 mg 06/16/21 10:00 06/20/21 10:12 Zestril 5 Mg PO 07/16/21 09:59 5 mg DAILY BRAYDEN Administration Non-Formulary Medication 37.5 each 06/16/21 10:00 Tramadol Hcl/Acetaminophen [Tramadol-Acetaminophn 37.5-325] PO 07/16/21 09:59 BID BRAYDEN Non-Formulary Medication 1 each 06/17/21 11:42 06/17/21 15:08 Pharmacy Dosing Request 06/17/21 11:43 Not Given STAT ONE Ofloxacin 0 ml 06/17/21 22:00 06/19/21 22:03 Floxin Otic 5 Ml OT 07/17/21 21:59 10 ml HS BRAYDEN Administration Ondansetron HCl 4 mg 06/15/21 11:59 06/15/21 12:01 Zofran 4 Mg/2 Ml Vial IV 06/15/21 12:00 4 mg STAT ONE Administration Ondansetron HCl Confirm 06/15/21 12:00 Zofran 4 Mg/2 Ml Vial Administered 06/15/21 12:01 Dose 4 mg .ROUTE .STK-MED ONE Ondansetron HCl 4 mg 06/15/21 15:26 06/18/21 20:10 Zofran 4 Mg/2 Ml Vial IV 07/15/21 15:25 4 mg Q6H PRN PRN Administration NAUSEA/VOMITING Pantoprazole Sodium 40 mg 06/15/21 16:00 06/20/21 10:12 Protonix 40 Mg Iv IV 07/15/21 15:59 40 mg DAILY BRAYDEN Administration Paroxetine HCl 20 mg 06/16/21 10:00 06/20/21 10:11 Paxil 20 Mg PO 07/16/21 09:59 20 mg DAILY BRAYDEN Administration Patient Own Med ( 0 each 06/16/21 12:30 06/20/21 10:11 Ultracet) PO 07/16/21 12:29 1 each BID BRAYDEN Administration Patiromer 8.4 gm 06/15/21 12:25 06/15/21 12:51 Veltassa PO 06/15/21 12:26 8.4 gm STAT STA Administration Patiromer Confirm 06/15/21 12:46 Veltassa Administered 06/15/21 12:47 Dose 8.4 gm PO .STK-MED ONE Potassium Chloride 20 meq 06/16/21 10:00 06/20/21 10:11 Klor Con 10 Meq PO 07/16/21 09:59 20 meq BID BRAYDEN Administration Simvastatin 40 mg 06/16/21 22:00 06/19/21 22:01 Zocor 20mg PO 07/16/21 21:59 40 mg HS BRAYDEN Administration Sodium Bicarbonate 50 meq 06/15/21 12:26 06/15/21 12:50 Sodium Bicarbonate 50 Meq/50 Ml Abboject IV 06/15/21 12:27 50 meq STAT ONE Administration Sodium Bicarbonate Confirm 06/15/21 12:46 Sodium Bicarbonate 50 Meq/50 Ml Abboject Administered 06/15/21 12:47 Dose 50 meq IV .STK-MED ONE Sodium Bicarbonate Confirm 06/16/21 02:46 Sodium Bicarbonate 50 Meq/50 Ml Abboject Administered 06/16/21 02:47 Dose 100 meq IV .STK-MED ONE Tramadol HCl 50 mg 06/15/21 22:27 06/15/21 22:38 Ultram 50 Mg PO 06/15/21 22:28 50 mg ONCE ONE Administration Tramadol HCl 50 mg 06/16/21 10:00 06/16/21 10:14 Ultram 50 Mg PO 07/16/21 09:59 50 mg BID BRAYDEN Administration Lab/Rad Data: Laboratory Result Diagrams 06/15/21 11:25 06/15/21 11:25 Laboratory Results 06/15/21 06/15/21 06/15/21 Range/Units 14:35 13:27 13:24 WBC (4.0-10.5) K/mm3 RBC (4.1-5.4) M/mm3 Hgb (12.0-16.0) gm/dl Hct (35-47) % MCV (78-100) fl MCH (26-32) pg MCHC (32-36) g/dl RDW (11.5-14.0) % Plt Count (150-450) K/mm3 MPV (7.5-11.0) fl Gran % (36.0-66.0) % Eos # (Auto) (0-0.5) Absolute Lymphs (auto) (1.0-4.6) Absolute Monos (auto) (0.0-1.3) Lymphocytes % (24.0-44.0) % Monocytes % (0.0-12.0) % Eosinophils % (0.00-5.0) % Basophils % (0.0-0.4) % Absolute Granulocytes (1.4-6.9) Basophils # (0-0.4) Puncture Site pCO2 (35-45) mmHg pO2 (75-100) mmHg Base Excess (-2.0-2.0) O2 Saturation (94-100) g/dF ABG pH (7.35-7.45) ABG HCO3 (22-28) ABG O2 Sat (Measured) (95-100) % Maxi Test A-a Gradient a/A Ratio Hemoglobin Carboxyhemoglobin (0.0-6.9) % THgb Methemoglobin (1.4-1.5) % Temperature C POC O2 Flow Rate % Sodium (137-145) mmol/L Potassium (3.5-5.1) mmol/L Chloride (98-107) mmol/L Carbon Dioxide (22-30) mmol/L Anion Gap (5-15) MEQ/L BUN (7-17) mg/dL Creatinine (0.52-1.04) mg/dL Estimated GFR ML/MIN Glucose (74-106) mg/dL POC Glucometer (74 to 106) mg/dL Lactic Acid 1.3 (0.4-2.0) Calcium (8.4-10.2) mg/dL Magnesium (1.6-2.3) mg/dL Total Bilirubin (0.2-1.3) mg/dL AST (14-36) U/L ALT (0-35) U/L Alkaline Phosphatase (38-126) U/L Troponin I 0.037 H* (0.000-0.034) ng/mL NT-Pro-B Natriuret Pep (0-900) pg/mL Serum Total Protein (6.3-8.2) g/dL Albumin (3.5-5.0) g/dL Urine Color (YELLOW) Urine Appearance (CLEAR) Urine pH (5-6) Ur Specific Seth (1.005-1.025) Urine Protein (Negative) Urine Ketones (NEGATIVE) Urine Blood (0-5) Chandu/ul Urine Nitrite (NEGATIVE) Urine Bilirubin (NEGATIVE) Urine Urobilinogen (0-1) mg/dL Ur Leukocyte Esterase (NEGATIVE) Urine WBC (Auto) (0-5) /HPF Urine RBC (Auto) (0-2) /HPF U Epithel Cells (Auto) (FEW) /HPF Urine Bacteria (Auto) (NEGATIVE) /HPF U Non-Squamous Epi Cells (FEW) /HPF Urine Culture Reflexed (NO) Urine Glucose (NEGATIVE) mg/dL SARS-CoV-2 (PCR) NEGATIVE (NEGATIVE) 06/15/21 06/15/21 06/15/21 Range/Units 11:58 11:25 11:25 WBC (4.0-10.5) K/mm3 RBC (4.1-5.4) M/mm3 Hgb (12.0-16.0) gm/dl Hct (35-47) % MCV (78-100) fl MCH (26-32) pg MCHC (32-36) g/dl RDW (11.5-14.0) % Plt Count (150-450) K/mm3 MPV (7.5-11.0) fl Gran % (36.0-66.0) % Eos # (Auto) (0-0.5) Absolute Lymphs (auto) (1.0-4.6) Absolute Monos (auto) (0.0-1.3) Lymphocytes % (24.0-44.0) % Monocytes % (0.0-12.0) % Eosinophils % (0.00-5.0) % Basophils % (0.0-0.4) % Absolute Granulocytes (1.4-6.9) Basophils # (0-0.4) Puncture Site rb pCO2 18 L* (35-45) mmHg pO2 124 H* (75-100) mmHg Base Excess -14.3 L (-2.0-2.0) O2 Saturation 95.7 (94-100) g/dF ABG pH 7.32 L (7.35-7.45) ABG HCO3 9.3 L* (22-28) ABG O2 Sat (Measured) 100.0 (95-100) % Maxi Test na A-a Gradient 3 a/A Ratio 0.98 Hemoglobin 10.9 Carboxyhemoglobin 3.2 (0.0-6.9) % THgb Methemoglobin 1.0 L (1.4-1.5) % Temperature 37.0 C POC O2 Flow Rate 21 % Sodium 132 L (137-145) mmol/L Potassium 6.3 H* 6.1 H* (3.5-5.1) mmol/L Chloride 101 (98-107) mmol/L Carbon Dioxide 8 L* (22-30) mmol/L Anion Gap 28.6 H (5-15) MEQ/L BUN 80 H (7-17) mg/dL Creatinine 9.38 H (0.52-1.04) mg/dL Estimated GFR 4.4 ML/MIN Glucose 295 H (74-106) mg/dL POC Glucometer (74 to 106) mg/dL Lactic Acid (0.4-2.0) Calcium 8.4 (8.4-10.2) mg/dL Magnesium 2.2 (1.6-2.3) mg/dL Total Bilirubin 0.60 (0.2-1.3) mg/dL AST 59 H (14-36) U/L ALT 42 H (0-35) U/L Alkaline Phosphatase 147 H (38-126) U/L Troponin I 0.042 H* (0.000-0.034) ng/mL NT-Pro-B Natriuret Pep 1670 H (0-900) pg/mL Serum Total Protein 8.4 H (6.3-8.2) g/dL Albumin 3.8 (3.5-5.0) g/dL Urine Color (YELLOW) Urine Appearance (CLEAR) Urine pH (5-6) Ur Specific Seth (1.005-1.025) Urine Protein (Negative) Urine Ketones (NEGATIVE) Urine Blood (0-5) Chandu/ul Urine Nitrite (NEGATIVE) Urine Bilirubin (NEGATIVE) Urine Urobilinogen (0-1) mg/dL Ur Leukocyte Esterase (NEGATIVE) Urine WBC (Auto) (0-5) /HPF Urine RBC (Auto) (0-2) /HPF U Epithel Cells (Auto) (FEW) /HPF Urine Bacteria (Auto) (NEGATIVE) /HPF U Non-Squamous Epi Cells (FEW) /HPF Urine Culture Reflexed (NO) Urine Glucose (NEGATIVE) mg/dL SARS-CoV-2 (PCR) (NEGATIVE) 06/15/21 06/15/21 06/15/21 Range/Units 11:25 11:23 10:59 WBC 14.9 H (4.0-10.5) K/mm3 RBC 3.68 L (4.1-5.4) M/mm3 Hgb 10.3 L (12.0-16.0) gm/dl Hct 33.2 L (35-47) % MCV 90.2 (78-100) fl MCH 28.0 (26-32) pg MCHC 31.0 L (32-36) g/dl RDW 16.9 H (11.5-14.0) % Plt Count 336 (150-450) K/mm3 MPV 9.5 (7.5-11.0) fl Gran % 84.4 H (36.0-66.0) % Eos # (Auto) 0 (0-0.5) Absolute Lymphs (auto) 1.48 (1.0-4.6) Absolute Monos (auto) 0.83 (0.0-1.3) Lymphocytes % 10.0 L (24.0-44.0) % Monocytes % 5.6 (0.0-12.0) % Eosinophils % 0.0 (0.00-5.0) % Basophils % 0.0 (0.0-0.4) % Absolute Granulocytes 12.56 H (1.4-6.9) Basophils # 0 (0-0.4) Puncture Site pCO2 (35-45) mmHg pO2 (75-100) mmHg Base Excess (-2.0-2.0) O2 Saturation (94-100) g/dF ABG pH (7.35-7.45) ABG HCO3 (22-28) ABG O2 Sat (Measured) (95-100) % Maxi Test A-a Gradient a/A Ratio Hemoglobin Carboxyhemoglobin (0.0-6.9) % THgb Methemoglobin (1.4-1.5) % Temperature C POC O2 Flow Rate % Sodium (137-145) mmol/L Potassium (3.5-5.1) mmol/L Chloride (98-107) mmol/L Carbon Dioxide (22-30) mmol/L Anion Gap (5-15) MEQ/L BUN (7-17) mg/dL Creatinine (0.52-1.04) mg/dL Estimated GFR ML/MIN Glucose (74-106) mg/dL POC Glucometer (74 to 106) mg/dL Lactic Acid 2.9 H (0.4-2.0) Calcium (8.4-10.2) mg/dL Magnesium (1.6-2.3) mg/dL Total Bilirubin (0.2-1.3) mg/dL AST (14-36) U/L ALT (0-35) U/L Alkaline Phosphatase (38-126) U/L Troponin I (0.000-0.034) ng/mL NT-Pro-B Natriuret Pep (0-900) pg/mL Serum Total Protein (6.3-8.2) g/dL Albumin (3.5-5.0) g/dL Urine Color YELLOW (YELLOW) Urine Appearance CLOUDY (CLEAR) Urine pH 5.0 (5-6) Ur Specific Seth 1.015 (1.005-1.025) Urine Protein 100 (Negative) Urine Ketones TRACE (NEGATIVE) Urine Blood SMALL (0-5) Chandu/ul Urine Nitrite NEGATIVE (NEGATIVE) Urine Bilirubin NEGATIVE (NEGATIVE) Urine Urobilinogen NEGATIVE (0-1) mg/dL Ur Leukocyte Esterase LARGE (NEGATIVE) Urine WBC (Auto) >100 (0-5) /HPF Urine RBC (Auto) 11-15 (0-2) /HPF U Epithel Cells (Auto) RARE (FEW) /HPF Urine Bacteria (Auto) PACKED (NEGATIVE) /HPF U Non-Squamous Epi Cells RARE (FEW) /HPF Urine Culture Reflexed YES (NO) Urine Glucose >=500 (NEGATIVE) mg/dL SARS-CoV-2 (PCR) (NEGATIVE) 06/15/21 Range/Units 10:54 WBC (4.0-10.5) K/mm3 RBC (4.1-5.4) M/mm3 Hgb (12.0-16.0) gm/dl Hct (35-47) % MCV (78-100) fl MCH (26-32) pg MCHC (32-36) g/dl RDW (11.5-14.0) % Plt Count (150-450) K/mm3 MPV (7.5-11.0) fl Gran % (36.0-66.0) % Eos # (Auto) (0-0.5) Absolute Lymphs (auto) (1.0-4.6) Absolute Monos (auto) (0.0-1.3) Lymphocytes % (24.0-44.0) % Monocytes % (0.0-12.0) % Eosinophils % (0.00-5.0) % Basophils % (0.0-0.4) % Absolute Granulocytes (1.4-6.9) Basophils # (0-0.4) Puncture Site pCO2 (35-45) mmHg pO2 (75-100) mmHg Base Excess (-2.0-2.0) O2 Saturation (94-100) g/dF ABG pH (7.35-7.45) ABG HCO3 (22-28) ABG O2 Sat (Measured) (95-100) % Maxi Test A-a Gradient a/A Ratio Hemoglobin Carboxyhemoglobin (0.0-6.9) % THgb Methemoglobin (1.4-1.5) % Temperature C POC O2 Flow Rate % Sodium (137-145) mmol/L Potassium (3.5-5.1) mmol/L Chloride (98-107) mmol/L Carbon Dioxide (22-30) mmol/L Anion Gap (5-15) MEQ/L BUN (7-17) mg/dL Creatinine (0.52-1.04) mg/dL Estimated GFR ML/MIN Glucose (74-106) mg/dL POC Glucometer 341 H (74 to 106) mg/dL Lactic Acid (0.4-2.0) Calcium (8.4-10.2) mg/dL Magnesium (1.6-2.3) mg/dL Total Bilirubin (0.2-1.3) mg/dL AST (14-36) U/L ALT (0-35) U/L Alkaline Phosphatase (38-126) U/L Troponin I (0.000-0.034) ng/mL NT-Pro-B Natriuret Pep (0-900) pg/mL Serum Total Protein (6.3-8.2) g/dL Albumin (3.5-5.0) g/dL Urine Color (YELLOW) Urine Appearance (CLEAR) Urine pH (5-6) Ur Specific Seth (1.005-1.025) Urine Protein (Negative) Urine Ketones (NEGATIVE) Urine Blood (0-5) Chandu/ul Urine Nitrite (NEGATIVE) Urine Bilirubin (NEGATIVE) Urine Urobilinogen (0-1) mg/dL Ur Leukocyte Esterase (NEGATIVE) Urine WBC (Auto) (0-5) /HPF Urine RBC (Auto) (0-2) /HPF U Epithel Cells (Auto) (FEW) /HPF Urine Bacteria (Auto) (NEGATIVE) /HPF U Non-Squamous Epi Cells (FEW) /HPF Urine Culture Reflexed (NO) Urine Glucose (NEGATIVE) mg/dL SARS-CoV-2 (PCR) (NEGATIVE) - Progress Progress: unchanged Progress Note: 06/15/21 12:35 Patient looks dry on presentation, given 2 L fluid 1 hour prior another bolus. Work-up showed white count of 14 with chemistry profile showing acute renal failure with a creatinine of 9 and BUN in the 80s with hyperkalemia 6.1 and glucose of 295. Has low bicarb, pH is 7. 3 to but I believe patient is right at the verge of going into DKA and will treat her like DKA. We will continue with IV fluids and start her on insulin drip. She is also given Veltassa 1 dose along with bicarb and calcium gluconate. Chest x-ray did not show any acute findings, does have UTI and given a dose of Rocephin as well. I believe patient does have bronchitis clinically and Rocephin will take care of it. Vitals are stable. Discussed with who knows patient very well and agrees that she is going into DKA. He thinks patient is dehydrated and has done similar way in the past with acute renal failure and recovers quickly and wants to keep her in here. Do not think he needs to be transferred to facility with nephrology services and also the fact is there are no hospital in the immediate vicinity who are accepting patients. So she is being admitted in here. Plan discussed with patient who understand and agrees with it. Discussed with Dr.: Vince Will see patient in: hospital (full admit) Counseled pt/family regarding: lab results, diagnosis, need for follow-up, rad results - Departure Departure Disposition: In-patient Admission Clinical Impression: Hyperkalemia, Acute UTI, Acute bronchitis DKA (diabetic ketoacidosis) Qualifiers: Diabetes mellitus type: other specified (including PRETTY) Diabetes mellitus complication detail: without coma Qualified Code(s): E13.10 - Other specified diabetes mellitus with ketoacidosis without coma Acute renal failure Qualifiers: Acute renal failure type: unspecified Qualified Code(s): N17.9 - Acute kidney failure, unspecified Condition: Stable Critical Care Time: Yes Critical Care Time(excluding separately billable procedures): Critical 30-74 mins
[2021-06-15] MEDS ORDERED: VELTASSA PO ONE (12:46)
[2021-06-15] MEDS ORDERED: ROCEPHIN 1 Gm-D5w 50 ml Bag** 1 G/50 ML IVPB IV ONE (12:46)
[2021-06-15] MEDS ORDERED: Zofran 4 MG/2 ML VIAL IV PRN (15:26)
[2021-06-15] MEDS ORDERED: ROCEPHIN 1 Gm-D5w 50 ml Bag** 1 G/50 ML IVPB IV SCH (16:00)
[2021-06-15] MEDS: Sodium Chloride 0.9% 1000 ML 1,000 ML IV SCH ×3 (16:51→23:04)
[2021-06-15] MEDS: TYLENOL 325 MG PO PRN (16:51)
[2021-06-15] MEDS: HUMULIN R 100 UNIT in Sodium Chloride 0.9% 100 ML BAG 100 ML IV SCH (16:52)
[2021-06-15] MEDS: ENOXAPARIN SODIUM SQ SCH (16:52)
[2021-06-15] MEDS: PROTONIX 40 MG IV IV SCH (16:52)
[2021-06-15 19:20] LABS: ANION GAP 23.1 MEQ/L (5-15); Creatinine 1 8.45 mg/dL (0.52-1.04); Potassium 5.6 mmol/L (3.5-5.1)
[2021-06-15 21:27] LABS: ANION GAP 23.5 MEQ/L (5-15); Calcium 8.2 mg/dL (8.4-10.2); Creatinine 1 8.36 mg/dL (0.52-1.04); EST GLOMERULAR FILTRATION RATE 5.1 ML/MIN
[2021-06-15] MEDS ORDERED: ULTRAM 50 MG PO ONE (22:27)
[2021-06-15] MEDS ORDERED: D50W 50 ml Abboject IV ONE (23:49)
[2021-06-16] MEDS ORDERED: D50W 50 ml Abboject IV ONE ×3 (01:05→19:21)
[2021-06-16] MEDS: D50W 50ML Vial IV SCH ×3 (01:13→05:09)
[2021-06-16] MEDS: Sodium Chloride 0.9% 1000 ML 1,000 ML IV SCH (01:14)
[2021-06-16 02:13] LABS: ANION GAP 22.6 MEQ/L (5-15); Calcium 7.8 mg/dL (8.4-10.2); Creatinine 1 7.96 mg/dL (0.52-1.04); EST GLOMERULAR FILTRATION RATE 5.3 ML/MIN; Potassium 4.9 mmol/L (3.5-5.1)
[2021-06-16] MEDS ORDERED: SODIUM BICARBONATE 50 MEQ/50 ML ABBOJECT IV ONE (02:46)
[2021-06-16] MEDS: Dextrose 5% -0.45 NaCl 1000 ML 1,000 ML IV SCH ×2 (02:48→08:29)
[2021-06-16] MEDS: SODIUM BICARBONATE IV SCH ×3 (02:53→09:12)
[2021-06-16] MEDS: SODIUM CHLORIDE 0.9% IV SCH ×3 (02:53→09:12)
[2021-06-16 06:39] LABS: Basophil (Absolute #) 0 (0-0.4); Eosinophil % 0.1 % (0.00-5.0); Eosinophil (Absolute #) 0.01 (0-0.5); Hematocrit 28.1 % (35-47); Hemoglobin 8.9 gm/dl (12.0-16.0); Lymphocyte (Absolute #) 1.17 (1.0-4.6); Lymphocytes % 11.5 % (24.0-44.0); Mean Cell Volume 88.9 fl (78-100); Mean Corpuscular Hemoglobin 28.2 pg (26-32); Mean Corpuscular Hgb Concent. 31.7 g/dl (32-36); Mean Platelet Volume 9.4 fl (7.5-11.0); Monocyte (Absolute #) 0.72 (0.0-1.3); Monocytes % 7.1 % (0.0-12.0); Neutrophil % 81.3 % (36.0-66.0); Platelet Count 220 K/mm3 (150-450); Red Blood Count 3.16 M/mm3 (4.1-5.4); Red Cell Distribution Width 16.8 % (11.5-14.0); White Blood Count 10.2 K/mm3 (4.0-10.5)
[2021-06-16 06:55] LABS: ALBUMIN 2.9 g/dL (3.5-5.0); ANION GAP 20.5 MEQ/L (5-15); BILIRUBIN,TOTAL 0.5 mg/dL (0.2-1.3); Calcium 7.5 mg/dL (8.4-10.2); Creatinine 1 7.53 mg/dL (0.52-1.04); EST GLOMERULAR FILTRATION RATE 5.7 ML/MIN; Potassium 4.2 mmol/L (3.5-5.1); Total Protein 6.6 g/dL (6.3-8.2)
[2021-06-16] MEDS ORDERED: D50W 50ML Vial IV PRN (07:15)
[2021-06-16] MEDS ORDERED: NON-FORMULARY ITEM (Potassium Chloride [Potassium Chloride] 20 MEQ) PO SCH (10:00)
[2021-06-16] MEDS ORDERED: ROCEPHIN 1 Gm-D5w 50 ml Bag** 1 G/50 ML IVPB IV SCH (10:00)
[2021-06-16] MEDS ORDERED: ACETAMINOPHEN PO SCH (10:00)
[2021-06-16] MEDS ORDERED: [UNRECOGNIZED DRUG - OTHER] PO SCH (10:00)
[2021-06-16] MEDS ORDERED: ULTRAM 50 MG PO SCH (10:00)
[2021-06-16] MEDS ORDERED: NON-FORMULARY ITEM (Rosuvastatin Calcium [Rosuvastatin Calcium] 20 MG) PO SCH (10:00)
[2021-06-16] MEDS ORDERED: TYLENOL 325 MG PO SCH (10:00)
[2021-06-16] MEDS ORDERED: TRAMADOL HCL PO SCH (10:00)
[2021-06-16] MEDS: ENOXAPARIN SODIUM SQ SCH (10:11)
[2021-06-16] MEDS: Klor Con 10 MEQ PO SCH ×2 (10:12→21:17)
[2021-06-16] MEDS: Paxil 20 MG PO SCH (10:13)
[2021-06-16] MEDS: Zestril 5 MG PO SCH (10:14)
[2021-06-16] MEDS: PROTONIX 40 MG IV IV SCH (10:15)
[2021-06-16] MEDS: SYNTHROID 88 MCG PO SCH (10:17)
[2021-06-16] MEDS: ROCEPHIN 1 Gm-D5w 50 ml Bag** 1 G/50 ML IVPB IV SCH (10:42)
[2021-06-16 10:45] LABS: Calcium 7.3 mg/dL (8.4-10.2); Creatinine 1 7.13 mg/dL (0.52-1.04); EST GLOMERULAR FILTRATION RATE 6.1 ML/MIN
[2021-06-16] MEDS ORDERED: NON-FORMULARY ITEM (Insulin Lispro 10 UNIT) SQ SCH (11:30)
[2021-06-16] MEDS: HUMALOG SQ SCH ×2 (12:36→16:36)
[2021-06-16] MEDS: D5W/0.45NS W/ 20mEq KCl 1000 ML 1,000 ML IV SCH ×2 (13:47→20:33)
[2021-06-16 14:49] LABS: ALBUMIN 2.6 g/dL (3.5-5.0); ANION GAP 17.3 MEQ/L (5-15); BILIRUBIN,TOTAL 0.4 mg/dL (0.2-1.3); Calcium 7.1 mg/dL (8.4-10.2); Creatinine 1 6.95 mg/dL (0.52-1.04); EST GLOMERULAR FILTRATION RATE 6.3 ML/MIN; Potassium 4.1 mmol/L (3.5-5.1); Total Protein 6.1 g/dL (6.3-8.2)
[2021-06-16] MEDS: PATIENT OWN MEDICATION PO SCH ×2 (16:49→21:18)
[2021-06-16] MEDS: TYLENOL 325 MG PO PRN (17:04)
[2021-06-16 18:56] LABS: ANION GAP 17.4 MEQ/L (5-15); Calcium 7.3 mg/dL (8.4-10.2); Creatinine 1 6.66 mg/dL (0.52-1.04); EST GLOMERULAR FILTRATION RATE 6.6 ML/MIN; Potassium 4.1 mmol/L (3.5-5.1)
[2021-06-16] MEDS: ZOCOR 20MG PO SCH (21:17)
[2021-06-16] MEDS: Lantus Insulin SQ SCH (21:18)
[2021-06-16] MEDS ORDERED: INSULIN GLARGINE HUM REC ANLOG 30 UNIT SQ SCH (22:00)
[2021-06-16 22:44] LABS: ANION GAP 16.1 MEQ/L (5-15); Calcium 7.5 mg/dL (8.4-10.2); Creatinine 1 6.5 mg/dL (0.52-1.04); EST GLOMERULAR FILTRATION RATE 6.8 ML/MIN; Potassium 4.5 mmol/L (3.5-5.1)
[2021-06-17 02:37] LABS: ANION GAP 16.5 MEQ/L (5-15); Calcium 7.6 mg/dL (8.4-10.2); Creatinine 1 6.36 mg/dL (0.52-1.04); EST GLOMERULAR FILTRATION RATE 6.9 ML/MIN; Potassium 4.8 mmol/L (3.5-5.1)
[2021-06-17] MEDS: D5W/0.45NS W/ 20mEq KCl 1000 ML 1,000 ML IV SCH ×2 (03:14→09:19)
--- NOTE | 2021-06-17 06:10 | PCM.NOTE ---
Date and Time: 06/16/21 0807 Late entry Subjective Assessment: doing little better. more alert.no nausea or vomiting - Review of Systems Constitutional: No Fever, No Chills Eyes: No Symptoms Ears, Nose, & Throat: No Symptoms Respiratory: No Cough, No Short Of Breath Cardiac: No Chest Pain, No Edema, No Syncope Abdominal/Gastrointestinal: No Abdominal Pain, No Nausea, No Vomiting, No Diarrhea Genitourinary Symptoms: No Dysuria Musculoskeletal: No Back Pain, No Neck Pain Skin: No Rash Neurological: No Dizziness, No Focal Weakness, No Sensory Changes Psychological: No Symptoms Endocrine: No Symptoms Hematologic/Lymphatic: No Symptoms Immunological/Allergic: No Symptoms Objective Exam General Appearance: no apparent distress, alert Neurologic Exam: alert, oriented x 3, cooperative, normal mood/affect, nml cerebellar function, sensation nml, No motor deficits Skin Exam: normal color, warm, dry Wound Assessment: Skin/Wound Assessment Wound/Incision Assessment Start: 06/16/21 08:42 Text: Status: Active Freq: Q6H Protocol: Document 06/17/21 01:58 BSO (Rec: 06/17/21 01:59 BSO [id number]) Wound Photo Photo Taken No Eye Exam: PERRL, EOMI, eyes nml inspection Ears, Nose, Throat Exam: normal ENT inspection, pharynx normal, moist mucous membranes Neck Exam: normal inspection, non-tender, supple, full range of motion Respiratory Exam: normal breath sounds, lungs clear, No respiratory distress Cardiovascular Exam: regular rate/rhythm, normal heart sounds Gastrointestinal/Abdomen Exam: soft, No tenderness, No mass Extremity Exam: normal inspection, normal range of motion Back Exam: normal inspection, normal range of motion, No CVA tenderness, No vertebral tenderness Pelvic Exam: deferred Rectal Exam: deferred OBJECTIVE DATA Vital Signs: Vital Signs - 24 hr Temp Pulse Resp BP Pulse Ox 06/17/21 04:00 98.5 F 81 16 116/61 97 06/17/21 03:56 83 06/17/21 02:00 100 H 16 134/94 99 06/17/21 00:00 98.3 F 82 18 141/78 06/16/21 23:49 84 06/16/21 22:00 91 H 15 146/76 99 06/16/21 20:00 88 18 98 06/16/21 18:00 96 H 18 99 06/16/21 14:00 97.4 F 72 18 121/60 96 06/16/21 12:30 97.7 F 74 17 109/62 98 06/16/21 09:59 97.6 F 78 17 157/73 99 06/16/21 07:00 98.0 F 89 22 161/82 99 Pain Assessment - Last Documented Pain Intensity 0 Pain Scale Used 0-10 Pain Scale Intake and Output: Intake & Output 06/14/21 06/15/21 06/16/21 06/17/21 11:59 11:59 11:59 11:59 Intake Total 4876 6579 Output Total 0 Balance 4876 6579 Weight 61.1 kg 62.7 kg Lab Results: Lab Results-Last 24 Hours 06/16/21 06/16/21 06/16/21 Range/Units 06:00 06:00 06:00 WBC 10.2 (4.0-10.5) K/mm3 RBC 3.16 L (4.1-5.4) M/mm3 Hgb 8.9 L (12.0-16.0) gm/dl Hct 28.1 L (35-47) % MCV 88.9 (78-100) fl MCH 28.2 (26-32) pg MCHC 31.7 L (32-36) g/dl RDW 16.8 H (11.5-14.0) % Plt Count 220 D (150-450) K/mm3 MPV 9.4 (7.5-11.0) fl Gran % 81.3 H (36.0-66.0) % Eos # (Auto) 0.01 (0-0.5) Absolute Lymphs (auto) 1.17 (1.0-4.6) Absolute Monos (auto) 0.72 (0.0-1.3) Lymphocytes % 11.5 L (24.0-44.0) % Monocytes % 7.1 (0.0-12.0) % Eosinophils % 0.1 (0.00-5.0) % Basophils % 0.0 (0.0-0.4) % Absolute Granulocytes 8.30 H (1.4-6.9) Basophils # 0 (0-0.4) Sodium 135 L (137-145) mmol/L Potassium 4.2 (3.5-5.1) mmol/L Chloride 104 (98-107) mmol/L Carbon Dioxide 15 L* (22-30) mmol/L Anion Gap 20.5 H (5-15) MEQ/L BUN 71 H (7-17) mg/dL Creatinine 7.53 H (0.52-1.04) mg/dL Estimated GFR 5.7 ML/MIN Glucose 171 H (74-106) mg/dL POC Glucometer (74 to 106) mg/dL Hemoglobin A1c 9.95 H (4.5-6.0) % Calcium 7.5 L (8.4-10.2) mg/dL Total Bilirubin 0.50 (0.2-1.3) mg/dL AST 47 H (14-36) U/L ALT 17 (0-35) U/L Alkaline Phosphatase 105 (38-126) U/L Serum Total Protein 6.6 (6.3-8.2) g/dL Albumin 2.9 L (3.5-5.0) g/dL 06/16/21 06/16/21 06/16/21 Range/Units 06:29 07:34 08:36 WBC (4.0-10.5) K/mm3 RBC (4.1-5.4) M/mm3 Hgb (12.0-16.0) gm/dl Hct (35-47) % MCV (78-100) fl MCH (26-32) pg MCHC (32-36) g/dl RDW (11.5-14.0) % Plt Count (150-450) K/mm3 MPV (7.5-11.0) fl Gran % (36.0-66.0) % Eos # (Auto) (0-0.5) Absolute Lymphs (auto) (1.0-4.6) Absolute Monos (auto) (0.0-1.3) Lymphocytes % (24.0-44.0) % Monocytes % (0.0-12.0) % Eosinophils % (0.00-5.0) % Basophils % (0.0-0.4) % Absolute Granulocytes (1.4-6.9) Basophils # (0-0.4) Sodium (137-145) mmol/L Potassium (3.5-5.1) mmol/L Chloride (98-107) mmol/L Carbon Dioxide (22-30) mmol/L Anion Gap (5-15) MEQ/L BUN (7-17) mg/dL Creatinine (0.52-1.04) mg/dL Estimated GFR ML/MIN Glucose (74-106) mg/dL POC Glucometer 146 H 157 H 182 H (74 to 106) mg/dL Hemoglobin A1c (4.5-6.0) % Calcium (8.4-10.2) mg/dL Total Bilirubin (0.2-1.3) mg/dL AST (14-36) U/L ALT (0-35) U/L Alkaline Phosphatase (38-126) U/L Serum Total Protein (6.3-8.2) g/dL Albumin (3.5-5.0) g/dL 06/16/21 06/16/21 06/16/21 Range/Units 09:27 10:20 10:28 WBC (4.0-10.5) K/mm3 RBC (4.1-5.4) M/mm3 Hgb (12.0-16.0) gm/dl Hct (35-47) % MCV (78-100) fl MCH (26-32) pg MCHC (32-36) g/dl RDW (11.5-14.0) % Plt Count (150-450) K/mm3 MPV (7.5-11.0) fl Gran % (36.0-66.0) % Eos # (Auto) (0-0.5) Absolute Lymphs (auto) (1.0-4.6) Absolute Monos (auto) (0.0-1.3) Lymphocytes % (24.0-44.0) % Monocytes % (0.0-12.0) % Eosinophils % (0.00-5.0) % Basophils % (0.0-0.4) % Absolute Granulocytes (1.4-6.9) Basophils # (0-0.4) Sodium 134 L (137-145) mmol/L Potassium 4.0 (3.5-5.1) mmol/L Chloride 103 (98-107) mmol/L Carbon Dioxide 17 L (22-30) mmol/L Anion Gap 18.0 H (5-15) MEQ/L BUN 68 H (7-17) mg/dL Creatinine 7.13 H (0.52-1.04) mg/dL Estimated GFR 6.1 ML/MIN Glucose 224 H (74-106) mg/dL POC Glucometer 228 H 219 H (74 to 106) mg/dL Hemoglobin A1c (4.5-6.0) % Calcium 7.3 L (8.4-10.2) mg/dL Total Bilirubin (0.2-1.3) mg/dL AST (14-36) U/L ALT (0-35) U/L Alkaline Phosphatase (38-126) U/L Serum Total Protein (6.3-8.2) g/dL Albumin (3.5-5.0) g/dL 06/16/21 06/16/21 06/16/21 Range/Units 11:28 12:37 13:48 WBC (4.0-10.5) K/mm3 RBC (4.1-5.4) M/mm3 Hgb (12.0-16.0) gm/dl Hct (35-47) % MCV (78-100) fl MCH (26-32) pg MCHC (32-36) g/dl RDW (11.5-14.0) % Plt Count (150-450) K/mm3 MPV (7.5-11.0) fl Gran % (36.0-66.0) % Eos # (Auto) (0-0.5) Absolute Lymphs (auto) (1.0-4.6) Absolute Monos (auto) (0.0-1.3) Lymphocytes % (24.0-44.0) % Monocytes % (0.0-12.0) % Eosinophils % (0.00-5.0) % Basophils % (0.0-0.4) % Absolute Granulocytes (1.4-6.9) Basophils # (0-0.4) Sodium (137-145) mmol/L Potassium (3.5-5.1) mmol/L Chloride (98-107) mmol/L Carbon Dioxide (22-30) mmol/L Anion Gap (5-15) MEQ/L BUN (7-17) mg/dL Creatinine (0.52-1.04) mg/dL Estimated GFR ML/MIN Glucose (74-106) mg/dL POC Glucometer 195 H 193 H 202 H (74 to 106) mg/dL Hemoglobin A1c (4.5-6.0) % Calcium (8.4-10.2) mg/dL Total Bilirubin (0.2-1.3) mg/dL AST (14-36) U/L ALT (0-35) U/L Alkaline Phosphatase (38-126) U/L Serum Total Protein (6.3-8.2) g/dL Albumin (3.5-5.0) g/dL 06/16/21 06/16/21 06/16/21 Range/Units 14:21 14:30 16:15 WBC (4.0-10.5) K/mm3 RBC (4.1-5.4) M/mm3 Hgb (12.0-16.0) gm/dl Hct (35-47) % MCV (78-100) fl MCH (26-32) pg MCHC (32-36) g/dl RDW (11.5-14.0) % Plt Count (150-450) K/mm3 MPV (7.5-11.0) fl Gran % (36.0-66.0) % Eos # (Auto) (0-0.5) Absolute Lymphs (auto) (1.0-4.6) Absolute Monos (auto) (0.0-1.3) Lymphocytes % (24.0-44.0) % Monocytes % (0.0-12.0) % Eosinophils % (0.00-5.0) % Basophils % (0.0-0.4) % Absolute Granulocytes (1.4-6.9) Basophils # (0-0.4) Sodium 134 L (137-145) mmol/L Potassium 4.1 (3.5-5.1) mmol/L Chloride 104 (98-107) mmol/L Carbon Dioxide 17 L (22-30) mmol/L Anion Gap 17.3 H (5-15) MEQ/L BUN 64 H (7-17) mg/dL Creatinine 6.95 H (0.52-1.04) mg/dL Estimated GFR 6.3 ML/MIN Glucose 195 H (74-106) mg/dL POC Glucometer 194 H 137 H (74 to 106) mg/dL Hemoglobin A1c (4.5-6.0) % Calcium 7.1 L (8.4-10.2) mg/dL Total Bilirubin 0.40 (0.2-1.3) mg/dL AST 54 H (14-36) U/L ALT 17 (0-35) U/L Alkaline Phosphatase 113 (38-126) U/L Serum Total Protein 6.1 L (6.3-8.2) g/dL Albumin 2.6 L (3.5-5.0) g/dL 06/16/21 06/16/21 06/16/21 Range/Units 17:01 17:46 18:32 WBC (4.0-10.5) K/mm3 RBC (4.1-5.4) M/mm3 Hgb (12.0-16.0) gm/dl Hct (35-47) % MCV (78-100) fl MCH (26-32) pg MCHC (32-36) g/dl RDW (11.5-14.0) % Plt Count (150-450) K/mm3 MPV (7.5-11.0) fl Gran % (36.0-66.0) % Eos # (Auto) (0-0.5) Absolute Lymphs (auto) (1.0-4.6) Absolute Monos (auto) (0.0-1.3) Lymphocytes % (24.0-44.0) % Monocytes % (0.0-12.0) % Eosinophils % (0.00-5.0) % Basophils % (0.0-0.4) % Absolute Granulocytes (1.4-6.9) Basophils # (0-0.4) Sodium 133 L (137-145) mmol/L Potassium 4.1 (3.5-5.1) mmol/L Chloride 105 (98-107) mmol/L Carbon Dioxide 14 L* (22-30) mmol/L Anion Gap 17.4 H (5-15) MEQ/L BUN 65 H (7-17) mg/dL Creatinine 6.66 H (0.52-1.04) mg/dL Estimated GFR 6.6 ML/MIN Glucose 67 L (74-106) mg/dL POC Glucometer 125 H 121 H (74 to 106) mg/dL Hemoglobin A1c (4.5-6.0) % Calcium 7.3 L (8.4-10.2) mg/dL Total Bilirubin (0.2-1.3) mg/dL AST (14-36) U/L ALT (0-35) U/L Alkaline Phosphatase (38-126) U/L Serum Total Protein (6.3-8.2) g/dL Albumin (3.5-5.0) g/dL 06/16/21 06/16/21 06/16/21 Range/Units 19:13 20:03 21:00 WBC (4.0-10.5) K/mm3 RBC (4.1-5.4) M/mm3 Hgb (12.0-16.0) gm/dl Hct (35-47) % MCV (78-100) fl MCH (26-32) pg MCHC (32-36) g/dl RDW (11.5-14.0) % Plt Count (150-450) K/mm3 MPV (7.5-11.0) fl Gran % (36.0-66.0) % Eos # (Auto) (0-0.5) Absolute Lymphs (auto) (1.0-4.6) Absolute Monos (auto) (0.0-1.3) Lymphocytes % (24.0-44.0) % Monocytes % (0.0-12.0) % Eosinophils % (0.00-5.0) % Basophils % (0.0-0.4) % Absolute Granulocytes (1.4-6.9) Basophils # (0-0.4) Sodium (137-145) mmol/L Potassium (3.5-5.1) mmol/L Chloride (98-107) mmol/L Carbon Dioxide (22-30) mmol/L Anion Gap (5-15) MEQ/L BUN (7-17) mg/dL Creatinine (0.52-1.04) mg/dL Estimated GFR ML/MIN Glucose (74-106) mg/dL POC Glucometer 61 L 130 H 137 H (74 to 106) mg/dL Hemoglobin A1c (4.5-6.0) % Calcium (8.4-10.2) mg/dL Total Bilirubin (0.2-1.3) mg/dL AST (14-36) U/L ALT (0-35) U/L Alkaline Phosphatase (38-126) U/L Serum Total Protein (6.3-8.2) g/dL Albumin (3.5-5.0) g/dL 06/16/21 06/16/21 06/16/21 Range/Units 22:02 22:34 23:01 WBC (4.0-10.5) K/mm3 RBC (4.1-5.4) M/mm3 Hgb (12.0-16.0) gm/dl Hct (35-47) % MCV (78-100) fl MCH (26-32) pg MCHC (32-36) g/dl RDW (11.5-14.0) % Plt Count (150-450) K/mm3 MPV (7.5-11.0) fl Gran % (36.0-66.0) % Eos # (Auto) (0-0.5) Absolute Lymphs (auto) (1.0-4.6) Absolute Monos (auto) (0.0-1.3) Lymphocytes % (24.0-44.0) % Monocytes % (0.0-12.0) % Eosinophils % (0.00-5.0) % Basophils % (0.0-0.4) % Absolute Granulocytes (1.4-6.9) Basophils # (0-0.4) Sodium 133 L (137-145) mmol/L Potassium 4.5 (3.5-5.1) mmol/L Chloride 103 (98-107) mmol/L Carbon Dioxide 18 L (22-30) mmol/L Anion Gap 16.1 H (5-15) MEQ/L BUN 62 H (7-17) mg/dL Creatinine 6.50 H (0.52-1.04) mg/dL Estimated GFR 6.8 ML/MIN Glucose 137 H (74-106) mg/dL POC Glucometer 126 H 131 H (74 to 106) mg/dL Hemoglobin A1c (4.5-6.0) % Calcium 7.5 L (8.4-10.2) mg/dL Total Bilirubin (0.2-1.3) mg/dL AST (14-36) U/L ALT (0-35) U/L Alkaline Phosphatase (38-126) U/L Serum Total Protein (6.3-8.2) g/dL Albumin (3.5-5.0) g/dL 06/17/21 06/17/21 06/17/21 Range/Units 00:15 01:16 02:08 WBC (4.0-10.5) K/mm3 RBC (4.1-5.4) M/mm3 Hgb (12.0-16.0) gm/dl Hct (35-47) % MCV (78-100) fl MCH (26-32) pg MCHC (32-36) g/dl RDW (11.5-14.0) % Plt Count (150-450) K/mm3 MPV (7.5-11.0) fl Gran % (36.0-66.0) % Eos # (Auto) (0-0.5) Absolute Lymphs (auto) (1.0-4.6) Absolute Monos (auto) (0.0-1.3) Lymphocytes % (24.0-44.0) % Monocytes % (0.0-12.0) % Eosinophils % (0.00-5.0) % Basophils % (0.0-0.4) % Absolute Granulocytes (1.4-6.9) Basophils # (0-0.4) Sodium (137-145) mmol/L Potassium (3.5-5.1) mmol/L Chloride (98-107) mmol/L Carbon Dioxide (22-30) mmol/L Anion Gap (5-15) MEQ/L BUN (7-17) mg/dL Creatinine (0.52-1.04) mg/dL Estimated GFR ML/MIN Glucose (74-106) mg/dL POC Glucometer 175 H 193 H 172 H (74 to 106) mg/dL Hemoglobin A1c (4.5-6.0) % Calcium (8.4-10.2) mg/dL Total Bilirubin (0.2-1.3) mg/dL AST (14-36) U/L ALT (0-35) U/L Alkaline Phosphatase (38-126) U/L Serum Total Protein (6.3-8.2) g/dL Albumin (3.5-5.0) g/dL 06/17/21 06/17/21 06/17/21 Range/Units 02:14 03:04 04:03 WBC (4.0-10.5) K/mm3 RBC (4.1-5.4) M/mm3 Hgb (12.0-16.0) gm/dl Hct (35-47) % MCV (78-100) fl MCH (26-32) pg MCHC (32-36) g/dl RDW (11.5-14.0) % Plt Count (150-450) K/mm3 MPV (7.5-11.0) fl Gran % (36.0-66.0) % Eos # (Auto) (0-0.5) Absolute Lymphs (auto) (1.0-4.6) Absolute Monos (auto) (0.0-1.3) Lymphocytes % (24.0-44.0) % Monocytes % (0.0-12.0) % Eosinophils % (0.00-5.0) % Basophils % (0.0-0.4) % Absolute Granulocytes (1.4-6.9) Basophils # (0-0.4) Sodium 133 L (137-145) mmol/L Potassium 4.8 (3.5-5.1) mmol/L Chloride 104 (98-107) mmol/L Carbon Dioxide 18 L (22-30) mmol/L Anion Gap 16.5 H (5-15) MEQ/L BUN 62 H (7-17) mg/dL Creatinine 6.36 H (0.52-1.04) mg/dL Estimated GFR 6.9 ML/MIN Glucose 183 H (74-106) mg/dL POC Glucometer 154 H 133 H (74 to 106) mg/dL Hemoglobin A1c (4.5-6.0) % Calcium 7.6 L (8.4-10.2) mg/dL Total Bilirubin (0.2-1.3) mg/dL AST (14-36) U/L ALT (0-35) U/L Alkaline Phosphatase (38-126) U/L Serum Total Protein (6.3-8.2) g/dL Albumin (3.5-5.0) g/dL 06/17/21 Range/Units 05:06 WBC (4.0-10.5) K/mm3 RBC (4.1-5.4) M/mm3 Hgb (12.0-16.0) gm/dl Hct (35-47) % MCV (78-100) fl MCH (26-32) pg MCHC (32-36) g/dl RDW (11.5-14.0) % Plt Count (150-450) K/mm3 MPV (7.5-11.0) fl Gran % (36.0-66.0) % Eos # (Auto) (0-0.5) Absolute Lymphs (auto) (1.0-4.6) Absolute Monos (auto) (0.0-1.3) Lymphocytes % (24.0-44.0) % Monocytes % (0.0-12.0) % Eosinophils % (0.00-5.0) % Basophils % (0.0-0.4) % Absolute Granulocytes (1.4-6.9) Basophils # (0-0.4) Sodium (137-145) mmol/L Potassium (3.5-5.1) mmol/L Chloride (98-107) mmol/L Carbon Dioxide (22-30) mmol/L Anion Gap (5-15) MEQ/L BUN (7-17) mg/dL Creatinine (0.52-1.04) mg/dL Estimated GFR ML/MIN Glucose (74-106) mg/dL POC Glucometer 137 H (74 to 106) mg/dL Hemoglobin A1c (4.5-6.0) % Calcium (8.4-10.2) mg/dL Total Bilirubin (0.2-1.3) mg/dL AST (14-36) U/L ALT (0-35) U/L Alkaline Phosphatase (38-126) U/L Serum Total Protein (6.3-8.2) g/dL Albumin (3.5-5.0) g/dL Radiology Exams: Radiology Procedures Category Date Time Status CHEST 1 VIEW (PORTABLE) Stat Exams 06/15/21 10:49 Completed Assessment/Plan (1) Ketoacidosis due to diabetes mellitus Current Visit: Yes Status: Acute Qualifiers: Diabetes mellitus type: other specified (including PRETTY) Diabetes mellitus complication detail: without coma Qualified Code(s): E13.10 - Other specified diabetes mellitus with ketoacidosis without coma Assessment & Plan: labs reviewed. continue present management Code(s): E11.10 - TYPE 2 DIABETES MELLITUS WITH KETOACIDOSIS WITHOUT COMA (2) Acute on chronic renal insufficiency Current Visit: Yes Status: Acute Code(s): N28.9 - DISORDER OF KIDNEY AND URETER, UNSPECIFIED; N18.9 - CHRONIC KIDNEY DISEASE, UNSPECIFIED (3) Diabetes mellitus Current Visit: No Status: Chronic Code(s): E11.9 - TYPE 2 DIABETES MELLITUS WITHOUT COMPLICATIONS (4) Dehydration Current Visit: No Status: Resolved Code(s): E86.0 - DEHYDRATION
--- NOTE | 2021-06-17 06:10 | PCM.HP.ADD ---
Addendum to History & Physical - History & Physical Addendum Addendum to History & Physical: This certifies that the History & Physical in the electronic chart reflects the current health status of the patient. If there are changes in the H&P these changes/exceptions are listed as follows.
--- NOTE | 2021-06-17 06:12 | PCM.NOTE ---
Date and Time: 06/17/21 0610 Subjective Assessment: doing much better. her labs are still very abnormal, urine output is improving. no nausea or vomiting - Review of Systems Constitutional: No Fever, No Chills Eyes: No Symptoms Ears, Nose, & Throat: No Symptoms Respiratory: No Cough, No Short Of Breath Cardiac: No Chest Pain, No Edema, No Syncope Abdominal/Gastrointestinal: No Abdominal Pain, No Nausea, No Vomiting, No Diarrhea Genitourinary Symptoms: No Dysuria Musculoskeletal: No Back Pain, No Neck Pain Skin: No Rash Neurological: No Dizziness, No Focal Weakness, No Sensory Changes Psychological: No Symptoms Endocrine: No Symptoms Hematologic/Lymphatic: No Symptoms Immunological/Allergic: No Symptoms Objective Exam Wound Assessment: Skin/Wound Assessment Wound/Incision Assessment Start: 06/16/21 08:42 Text: Status: Active Freq: Q6H Protocol: Document 06/17/21 01:58 BSO (Rec: 06/17/21 01:59 BSO [id number]) Wound Photo Photo Taken No OBJECTIVE DATA Vital Signs: Vital Signs - 24 hr Temp Pulse Resp BP Pulse Ox 06/17/21 04:00 98.5 F 81 16 116/61 97 06/17/21 03:56 83 06/17/21 02:00 100 H 16 134/94 99 06/17/21 00:00 98.3 F 82 18 141/78 06/16/21 23:49 84 06/16/21 22:00 91 H 15 146/76 99 06/16/21 20:00 88 18 98 06/16/21 18:00 96 H 18 99 06/16/21 14:00 97.4 F 72 18 121/60 96 06/16/21 12:30 97.7 F 74 17 109/62 98 06/16/21 09:59 97.6 F 78 17 157/73 99 06/16/21 07:00 98.0 F 89 22 161/82 99 Pain Assessment - Last Documented Pain Intensity 0 Pain Scale Used 0-10 Pain Scale Intake and Output: Intake & Output 06/14/21 06/15/21 06/16/21 06/17/21 11:59 11:59 11:59 11:59 Intake Total 4876 6579 Output Total 0 Balance 4876 6579 Weight 61.1 kg 62.7 kg Lab Results: Lab Results-Last 24 Hours 06/16/21 06/16/21 06/16/21 Range/Units 06:00 06:00 06:00 WBC 10.2 (4.0-10.5) K/mm3 RBC 3.16 L (4.1-5.4) M/mm3 Hgb 8.9 L (12.0-16.0) gm/dl Hct 28.1 L (35-47) % MCV 88.9 (78-100) fl MCH 28.2 (26-32) pg MCHC 31.7 L (32-36) g/dl RDW 16.8 H (11.5-14.0) % Plt Count 220 D (150-450) K/mm3 MPV 9.4 (7.5-11.0) fl Gran % 81.3 H (36.0-66.0) % Eos # (Auto) 0.01 (0-0.5) Absolute Lymphs (auto) 1.17 (1.0-4.6) Absolute Monos (auto) 0.72 (0.0-1.3) Lymphocytes % 11.5 L (24.0-44.0) % Monocytes % 7.1 (0.0-12.0) % Eosinophils % 0.1 (0.00-5.0) % Basophils % 0.0 (0.0-0.4) % Absolute Granulocytes 8.30 H (1.4-6.9) Basophils # 0 (0-0.4) Sodium 135 L (137-145) mmol/L Potassium 4.2 (3.5-5.1) mmol/L Chloride 104 (98-107) mmol/L Carbon Dioxide 15 L* (22-30) mmol/L Anion Gap 20.5 H (5-15) MEQ/L BUN 71 H (7-17) mg/dL Creatinine 7.53 H (0.52-1.04) mg/dL Estimated GFR 5.7 ML/MIN Glucose 171 H (74-106) mg/dL POC Glucometer (74 to 106) mg/dL Hemoglobin A1c 9.95 H (4.5-6.0) % Calcium 7.5 L (8.4-10.2) mg/dL Total Bilirubin 0.50 (0.2-1.3) mg/dL AST 47 H (14-36) U/L ALT 17 (0-35) U/L Alkaline Phosphatase 105 (38-126) U/L Serum Total Protein 6.6 (6.3-8.2) g/dL Albumin 2.9 L (3.5-5.0) g/dL 06/16/21 06/16/21 06/16/21 Range/Units 06:29 07:34 08:36 WBC (4.0-10.5) K/mm3 RBC (4.1-5.4) M/mm3 Hgb (12.0-16.0) gm/dl Hct (35-47) % MCV (78-100) fl MCH (26-32) pg MCHC (32-36) g/dl RDW (11.5-14.0) % Plt Count (150-450) K/mm3 MPV (7.5-11.0) fl Gran % (36.0-66.0) % Eos # (Auto) (0-0.5) Absolute Lymphs (auto) (1.0-4.6) Absolute Monos (auto) (0.0-1.3) Lymphocytes % (24.0-44.0) % Monocytes % (0.0-12.0) % Eosinophils % (0.00-5.0) % Basophils % (0.0-0.4) % Absolute Granulocytes (1.4-6.9) Basophils # (0-0.4) Sodium (137-145) mmol/L Potassium (3.5-5.1) mmol/L Chloride (98-107) mmol/L Carbon Dioxide (22-30) mmol/L Anion Gap (5-15) MEQ/L BUN (7-17) mg/dL Creatinine (0.52-1.04) mg/dL Estimated GFR ML/MIN Glucose (74-106) mg/dL POC Glucometer 146 H 157 H 182 H (74 to 106) mg/dL Hemoglobin A1c (4.5-6.0) % Calcium (8.4-10.2) mg/dL Total Bilirubin (0.2-1.3) mg/dL AST (14-36) U/L ALT (0-35) U/L Alkaline Phosphatase (38-126) U/L Serum Total Protein (6.3-8.2) g/dL Albumin (3.5-5.0) g/dL 06/16/21 06/16/21 06/16/21 Range/Units 09:27 10:20 10:28 WBC (4.0-10.5) K/mm3 RBC (4.1-5.4) M/mm3 Hgb (12.0-16.0) gm/dl Hct (35-47) % MCV (78-100) fl MCH (26-32) pg MCHC (32-36) g/dl RDW (11.5-14.0) % Plt Count (150-450) K/mm3 MPV (7.5-11.0) fl Gran % (36.0-66.0) % Eos # (Auto) (0-0.5) Absolute Lymphs (auto) (1.0-4.6) Absolute Monos (auto) (0.0-1.3) Lymphocytes % (24.0-44.0) % Monocytes % (0.0-12.0) % Eosinophils % (0.00-5.0) % Basophils % (0.0-0.4) % Absolute Granulocytes (1.4-6.9) Basophils # (0-0.4) Sodium 134 L (137-145) mmol/L Potassium 4.0 (3.5-5.1) mmol/L Chloride 103 (98-107) mmol/L Carbon Dioxide 17 L (22-30) mmol/L Anion Gap 18.0 H (5-15) MEQ/L BUN 68 H (7-17) mg/dL Creatinine 7.13 H (0.52-1.04) mg/dL Estimated GFR 6.1 ML/MIN Glucose 224 H (74-106) mg/dL POC Glucometer 228 H 219 H (74 to 106) mg/dL Hemoglobin A1c (4.5-6.0) % Calcium 7.3 L (8.4-10.2) mg/dL Total Bilirubin (0.2-1.3) mg/dL AST (14-36) U/L ALT (0-35) U/L Alkaline Phosphatase (38-126) U/L Serum Total Protein (6.3-8.2) g/dL Albumin (3.5-5.0) g/dL 06/16/21 06/16/21 06/16/21 Range/Units 11:28 12:37 13:48 WBC (4.0-10.5) K/mm3 RBC (4.1-5.4) M/mm3 Hgb (12.0-16.0) gm/dl Hct (35-47) % MCV (78-100) fl MCH (26-32) pg MCHC (32-36) g/dl RDW (11.5-14.0) % Plt Count (150-450) K/mm3 MPV (7.5-11.0) fl Gran % (36.0-66.0) % Eos # (Auto) (0-0.5) Absolute Lymphs (auto) (1.0-4.6) Absolute Monos (auto) (0.0-1.3) Lymphocytes % (24.0-44.0) % Monocytes % (0.0-12.0) % Eosinophils % (0.00-5.0) % Basophils % (0.0-0.4) % Absolute Granulocytes (1.4-6.9) Basophils # (0-0.4) Sodium (137-145) mmol/L Potassium (3.5-5.1) mmol/L Chloride (98-107) mmol/L Carbon Dioxide (22-30) mmol/L Anion Gap (5-15) MEQ/L BUN (7-17) mg/dL Creatinine (0.52-1.04) mg/dL Estimated GFR ML/MIN Glucose (74-106) mg/dL POC Glucometer 195 H 193 H 202 H (74 to 106) mg/dL Hemoglobin A1c (4.5-6.0) % Calcium (8.4-10.2) mg/dL Total Bilirubin (0.2-1.3) mg/dL AST (14-36) U/L ALT (0-35) U/L Alkaline Phosphatase (38-126) U/L Serum Total Protein (6.3-8.2) g/dL Albumin (3.5-5.0) g/dL 06/16/21 06/16/21 06/16/21 Range/Units 14:21 14:30 16:15 WBC (4.0-10.5) K/mm3 RBC (4.1-5.4) M/mm3 Hgb (12.0-16.0) gm/dl Hct (35-47) % MCV (78-100) fl MCH (26-32) pg MCHC (32-36) g/dl RDW (11.5-14.0) % Plt Count (150-450) K/mm3 MPV (7.5-11.0) fl Gran % (36.0-66.0) % Eos # (Auto) (0-0.5) Absolute Lymphs (auto) (1.0-4.6) Absolute Monos (auto) (0.0-1.3) Lymphocytes % (24.0-44.0) % Monocytes % (0.0-12.0) % Eosinophils % (0.00-5.0) % Basophils % (0.0-0.4) % Absolute Granulocytes (1.4-6.9) Basophils # (0-0.4) Sodium 134 L (137-145) mmol/L Potassium 4.1 (3.5-5.1) mmol/L Chloride 104 (98-107) mmol/L Carbon Dioxide 17 L (22-30) mmol/L Anion Gap 17.3 H (5-15) MEQ/L BUN 64 H (7-17) mg/dL Creatinine 6.95 H (0.52-1.04) mg/dL Estimated GFR 6.3 ML/MIN Glucose 195 H (74-106) mg/dL POC Glucometer 194 H 137 H (74 to 106) mg/dL Hemoglobin A1c (4.5-6.0) % Calcium 7.1 L (8.4-10.2) mg/dL Total Bilirubin 0.40 (0.2-1.3) mg/dL AST 54 H (14-36) U/L ALT 17 (0-35) U/L Alkaline Phosphatase 113 (38-126) U/L Serum Total Protein 6.1 L (6.3-8.2) g/dL Albumin 2.6 L (3.5-5.0) g/dL 06/16/21 06/16/21 06/16/21 Range/Units 17:01 17:46 18:32 WBC (4.0-10.5) K/mm3 RBC (4.1-5.4) M/mm3 Hgb (12.0-16.0) gm/dl Hct (35-47) % MCV (78-100) fl MCH (26-32) pg MCHC (32-36) g/dl RDW (11.5-14.0) % Plt Count (150-450) K/mm3 MPV (7.5-11.0) fl Gran % (36.0-66.0) % Eos # (Auto) (0-0.5) Absolute Lymphs (auto) (1.0-4.6) Absolute Monos (auto) (0.0-1.3) Lymphocytes % (24.0-44.0) % Monocytes % (0.0-12.0) % Eosinophils % (0.00-5.0) % Basophils % (0.0-0.4) % Absolute Granulocytes (1.4-6.9) Basophils # (0-0.4) Sodium 133 L (137-145) mmol/L Potassium 4.1 (3.5-5.1) mmol/L Chloride 105 (98-107) mmol/L Carbon Dioxide 14 L* (22-30) mmol/L Anion Gap 17.4 H (5-15) MEQ/L BUN 65 H (7-17) mg/dL Creatinine 6.66 H (0.52-1.04) mg/dL Estimated GFR 6.6 ML/MIN Glucose 67 L (74-106) mg/dL POC Glucometer 125 H 121 H (74 to 106) mg/dL Hemoglobin A1c (4.5-6.0) % Calcium 7.3 L (8.4-10.2) mg/dL Total Bilirubin (0.2-1.3) mg/dL AST (14-36) U/L ALT (0-35) U/L Alkaline Phosphatase (38-126) U/L Serum Total Protein (6.3-8.2) g/dL Albumin (3.5-5.0) g/dL 06/16/21 06/16/21 06/16/21 Range/Units 19:13 20:03 21:00 WBC (4.0-10.5) K/mm3 RBC (4.1-5.4) M/mm3 Hgb (12.0-16.0) gm/dl Hct (35-47) % MCV (78-100) fl MCH (26-32) pg MCHC (32-36) g/dl RDW (11.5-14.0) % Plt Count (150-450) K/mm3 MPV (7.5-11.0) fl Gran % (36.0-66.0) % Eos # (Auto) (0-0.5) Absolute Lymphs (auto) (1.0-4.6) Absolute Monos (auto) (0.0-1.3) Lymphocytes % (24.0-44.0) % Monocytes % (0.0-12.0) % Eosinophils % (0.00-5.0) % Basophils % (0.0-0.4) % Absolute Granulocytes (1.4-6.9) Basophils # (0-0.4) Sodium (137-145) mmol/L Potassium (3.5-5.1) mmol/L Chloride (98-107) mmol/L Carbon Dioxide (22-30) mmol/L Anion Gap (5-15) MEQ/L BUN (7-17) mg/dL Creatinine (0.52-1.04) mg/dL Estimated GFR ML/MIN Glucose (74-106) mg/dL POC Glucometer 61 L 130 H 137 H (74 to 106) mg/dL Hemoglobin A1c (4.5-6.0) % Calcium (8.4-10.2) mg/dL Total Bilirubin (0.2-1.3) mg/dL AST (14-36) U/L ALT (0-35) U/L Alkaline Phosphatase (38-126) U/L Serum Total Protein (6.3-8.2) g/dL Albumin (3.5-5.0) g/dL 06/16/21 06/16/21 06/16/21 Range/Units 22:02 22:34 23:01 WBC (4.0-10.5) K/mm3 RBC (4.1-5.4) M/mm3 Hgb (12.0-16.0) gm/dl Hct (35-47) % MCV (78-100) fl MCH (26-32) pg MCHC (32-36) g/dl RDW (11.5-14.0) % Plt Count (150-450) K/mm3 MPV (7.5-11.0) fl Gran % (36.0-66.0) % Eos # (Auto) (0-0.5) Absolute Lymphs (auto) (1.0-4.6) Absolute Monos (auto) (0.0-1.3) Lymphocytes % (24.0-44.0) % Monocytes % (0.0-12.0) % Eosinophils % (0.00-5.0) % Basophils % (0.0-0.4) % Absolute Granulocytes (1.4-6.9) Basophils # (0-0.4) Sodium 133 L (137-145) mmol/L Potassium 4.5 (3.5-5.1) mmol/L Chloride 103 (98-107) mmol/L Carbon Dioxide 18 L (22-30) mmol/L Anion Gap 16.1 H (5-15) MEQ/L BUN 62 H (7-17) mg/dL Creatinine 6.50 H (0.52-1.04) mg/dL Estimated GFR 6.8 ML/MIN Glucose 137 H (74-106) mg/dL POC Glucometer 126 H 131 H (74 to 106) mg/dL Hemoglobin A1c (4.5-6.0) % Calcium 7.5 L (8.4-10.2) mg/dL Total Bilirubin (0.2-1.3) mg/dL AST (14-36) U/L ALT (0-35) U/L Alkaline Phosphatase (38-126) U/L Serum Total Protein (6.3-8.2) g/dL Albumin (3.5-5.0) g/dL 06/17/21 06/17/21 06/17/21 Range/Units 00:15 01:16 02:08 WBC (4.0-10.5) K/mm3 RBC (4.1-5.4) M/mm3 Hgb (12.0-16.0) gm/dl Hct (35-47) % MCV (78-100) fl MCH (26-32) pg MCHC (32-36) g/dl RDW (11.5-14.0) % Plt Count (150-450) K/mm3 MPV (7.5-11.0) fl Gran % (36.0-66.0) % Eos # (Auto) (0-0.5) Absolute Lymphs (auto) (1.0-4.6) Absolute Monos (auto) (0.0-1.3) Lymphocytes % (24.0-44.0) % Monocytes % (0.0-12.0) % Eosinophils % (0.00-5.0) % Basophils % (0.0-0.4) % Absolute Granulocytes (1.4-6.9) Basophils # (0-0.4) Sodium (137-145) mmol/L Potassium (3.5-5.1) mmol/L Chloride (98-107) mmol/L Carbon Dioxide (22-30) mmol/L Anion Gap (5-15) MEQ/L BUN (7-17) mg/dL Creatinine (0.52-1.04) mg/dL Estimated GFR ML/MIN Glucose (74-106) mg/dL POC Glucometer 175 H 193 H 172 H (74 to 106) mg/dL Hemoglobin A1c (4.5-6.0) % Calcium (8.4-10.2) mg/dL Total Bilirubin (0.2-1.3) mg/dL AST (14-36) U/L ALT (0-35) U/L Alkaline Phosphatase (38-126) U/L Serum Total Protein (6.3-8.2) g/dL Albumin (3.5-5.0) g/dL 06/17/21 06/17/21 06/17/21 Range/Units 02:14 03:04 04:03 WBC (4.0-10.5) K/mm3 RBC (4.1-5.4) M/mm3 Hgb (12.0-16.0) gm/dl Hct (35-47) % MCV (78-100) fl MCH (26-32) pg MCHC (32-36) g/dl RDW (11.5-14.0) % Plt Count (150-450) K/mm3 MPV (7.5-11.0) fl Gran % (36.0-66.0) % Eos # (Auto) (0-0.5) Absolute Lymphs (auto) (1.0-4.6) Absolute Monos (auto) (0.0-1.3) Lymphocytes % (24.0-44.0) % Monocytes % (0.0-12.0) % Eosinophils % (0.00-5.0) % Basophils % (0.0-0.4) % Absolute Granulocytes (1.4-6.9) Basophils # (0-0.4) Sodium 133 L (137-145) mmol/L Potassium 4.8 (3.5-5.1) mmol/L Chloride 104 (98-107) mmol/L Carbon Dioxide 18 L (22-30) mmol/L Anion Gap 16.5 H (5-15) MEQ/L BUN 62 H (7-17) mg/dL Creatinine 6.36 H (0.52-1.04) mg/dL Estimated GFR 6.9 ML/MIN Glucose 183 H (74-106) mg/dL POC Glucometer 154 H 133 H (74 to 106) mg/dL Hemoglobin A1c (4.5-6.0) % Calcium 7.6 L (8.4-10.2) mg/dL Total Bilirubin (0.2-1.3) mg/dL AST (14-36) U/L ALT (0-35) U/L Alkaline Phosphatase (38-126) U/L Serum Total Protein (6.3-8.2) g/dL Albumin (3.5-5.0) g/dL 06/17/21 06/17/21 Range/Units 05:06 06:06 WBC (4.0-10.5) K/mm3 RBC (4.1-5.4) M/mm3 Hgb (12.0-16.0) gm/dl Hct (35-47) % MCV (78-100) fl MCH (26-32) pg MCHC (32-36) g/dl RDW (11.5-14.0) % Plt Count (150-450) K/mm3 MPV (7.5-11.0) fl Gran % (36.0-66.0) % Eos # (Auto) (0-0.5) Absolute Lymphs (auto) (1.0-4.6) Absolute Monos (auto) (0.0-1.3) Lymphocytes % (24.0-44.0) % Monocytes % (0.0-12.0) % Eosinophils % (0.00-5.0) % Basophils % (0.0-0.4) % Absolute Granulocytes (1.4-6.9) Basophils # (0-0.4) Sodium (137-145) mmol/L Potassium (3.5-5.1) mmol/L Chloride (98-107) mmol/L Carbon Dioxide (22-30) mmol/L Anion Gap (5-15) MEQ/L BUN (7-17) mg/dL Creatinine (0.52-1.04) mg/dL Estimated GFR ML/MIN Glucose (74-106) mg/dL POC Glucometer 137 H 119 H (74 to 106) mg/dL Hemoglobin A1c (4.5-6.0) % Calcium (8.4-10.2) mg/dL Total Bilirubin (0.2-1.3) mg/dL AST (14-36) U/L ALT (0-35) U/L Alkaline Phosphatase (38-126) U/L Serum Total Protein (6.3-8.2) g/dL Albumin (3.5-5.0) g/dL Radiology Exams: Radiology Procedures Category Date Time Status CHEST 1 VIEW (PORTABLE) Stat Exams 06/15/21 10:49 Completed Assessment/Plan (1) Ketoacidosis due to diabetes mellitus Current Visit: Yes Status: Acute Qualifiers: Diabetes mellitus type: other specified (including PRETTY) Diabetes mellitus complication detail: without coma Qualified Code(s): E13.10 - Other specified diabetes mellitus with ketoacidosis without coma Assessment & Plan: Chief Complaint Diagnosis ckd Allergies Allergy/AdvReac Type Severity Reaction Status Date / Time No Known Drug Allergies Allergy Verified 06/15/21 10:38 Vital Signs (Last 24 hours) Temp Pulse Resp BP Pulse Ox 06/17/21 04:00 98.5 F 81 16 116/61 97 06/17/21 03:56 83 06/17/21 02:00 100 H 16 134/94 99 06/17/21 00:00 98.3 F 82 18 141/78 06/16/21 23:49 84 06/16/21 22:00 91 H 15 146/76 99 06/16/21 20:00 88 18 98 06/16/21 18:00 96 H 18 99 06/16/21 14:00 97.4 F 72 18 121/60 96 06/16/21 12:30 97.7 F 74 17 109/62 98 06/16/21 09:59 97.6 F 78 17 157/73 99 06/16/21 07:00 98.0 F 89 22 161/82 99 Home Medications Medication Instructions Recorded Confirmed Last Taken Type Tramadol HCl/Acetaminophen 37.5 each PO BID 06/15/21 06/15/21 Unknown History [Tramadol-Acetaminophn 37.5-325] lisinopriL [Lisinopril] 5 mg PO DAILY 06/15/21 06/15/21 Unknown History Current Medications Generic Name Dose Route Start Last Admin Trade Name Freq PRN Reason Stop Dose Admin Acetaminophen 650 mg 06/15/21 15:26 06/16/21 17:04 Tylenol 325 Mg PO 07/15/21 15:25 650 mg Q4H PRN PRN Administration PAIN AND/OR FEVER Dextrose 25 ml 06/16/21 07:15 06/16/21 19:29 D50w 50ml Vial IV 07/15/21 23:44 25 ml UD PRN Administration Enoxaparin Sodium 40 mg 06/15/21 16:00 06/16/21 10:11 Enoxaparin Sodium SQ 07/15/21 15:59 40 mg DAILY BRAYDEN Administration Ceftriaxone Sodium/Dextrose 1 g in 50 mls @ 100 mls/hr 06/16/21 10:00 06/16/21 10:42 Rocephin 1 Gm-D5w 50 Ml Bag IV 06/19/21 09:59 100 mls/hr DAILY BRAYDEN Administration Insulin Human Regular 100 unit 100 mls @ 3 mls/hr 06/15/21 16:30 06/15/21 22:30 / Sodium Chloride IV 07/15/21 16:29 1 mls/hr .Q24H BRAYDEN 1 mls/hr Infusion Potassium Chloride/Dextrose/Sod Cl 1,000 mls @ 150 mls/hr 06/16/21 13:40 06/17/21 03:14 D5w/0.45ns W/ 20meq Kcl 1000 Ml IV 07/16/21 13:39 150 mls/hr .Q6H40M BRAYDEN Administration Insulin Glargine 24 unit 06/16/21 22:00 06/16/21 21:18 Lantus Insulin SQ 07/16/21 21:59 Not Given HS BRAYDEN Insulin Human Lispro 10 unit 06/16/21 11:30 06/16/21 16:36 Humalog SQ 07/16/21 11:29 10 unit AC BRAYDEN Administration Levothyroxine Sodium 88 mcg 06/16/21 10:00 06/16/21 10:17 Synthroid 88 Mcg PO 07/16/21 09:59 88 mcg DAILY BRAYDEN Administration Lisinopril 5 mg 06/16/21 10:00 06/16/21 10:14 Zestril 5 Mg PO 07/16/21 09:59 5 mg DAILY BRAYDEN Administration Ondansetron HCl 4 mg 06/15/21 15:26 Zofran 4 Mg/2 Ml Vial IV 07/15/21 15:25 Q6H PRN PRN NAUSEA/VOMITING Pantoprazole Sodium 40 mg 06/15/21 16:00 06/16/21 10:15 Protonix 40 Mg Iv IV 07/15/21 15:59 40 mg DAILY BRAYDEN Administration Paroxetine HCl 20 mg 06/16/21 10:00 06/16/21 10:13 Paxil 20 Mg PO 07/16/21 09:59 20 mg DAILY BRAYDEN Administration Patient Own Med ( 0 each 06/16/21 12:30 06/16/21 21:18 Ultracet) PO 07/16/21 12:29 1 each BID BRAYDEN Administration Potassium Chloride 20 meq 06/16/21 10:00 06/16/21 21:17 Klor Con 10 Meq PO 07/16/21 09:59 20 meq BID BRAYDEN Administration Simvastatin 40 mg 06/16/21 22:00 06/16/21 21:17 Zocor 20mg PO 07/16/21 21:59 40 mg HS BRAYDEN Administration Discontinued Medications Generic Name Dose Route Start Last Admin Trade Name Freq PRN Reason Stop Dose Admin Acetaminophen 325 mg 06/16/21 10:00 06/16/21 10:16 Tylenol 325 Mg PO 07/16/21 09:59 325 mg BID BRAYDNE Administration Albuterol/Ipratropium 3 ml 06/15/21 10:48 06/15/21 11:28 Duoneb 0.5-3 Mg/3 Ml Neb IH 06/15/21 10:49 3 ml STAT ONE Administration Albuterol/Ipratropium Confirm 06/15/21 11:14 Duoneb 0.5-3 Mg/3 Ml Neb Administered 06/15/21 11:15 Dose 3 ml IH .STK-MED ONE Calcium Gluconate 1,000 mg 06/15/21 12:26 06/15/21 12:50 Calcium Gluconate 10% 1000 Mg IV 06/15/21 12:27 1,000 mg STAT ONE Administration Calcium Gluconate Confirm 06/15/21 12:46 Calcium Gluconate 10% 1000 Mg Administered 06/15/21 12:47 Dose 1,000 mg IV .STK-MED ONE Dextrose Confirm 06/15/21 23:49 D50w 50 Ml Abboject Administered 06/15/21 23:50 Dose 50 ml IV .STK-MED ONE Dextrose 25 ml 06/15/21 23:45 06/16/21 05:09 D50w 50ml Vial IV 07/15/21 23:44 25 ml UD BRAYDEN Administration Dextrose Confirm 06/16/21 01:05 D50w 50 Ml Abboject Administered 06/16/21 01:06 Dose 50 ml IV .STK-MED ONE Dextrose Confirm 06/16/21 05:05 D50w 50 Ml Abboject Administered 06/16/21 05:06 Dose 50 ml IV .STK-MED ONE Dextrose Confirm 06/16/21 19:21 D50w 50 Ml Abboject Administered 06/16/21 19:22 Dose 100 ml IV .STK-MED ONE Sodium Chloride 1,000 mls @ 999 mls/hr 06/15/21 11:59 06/15/21 13:16 Sodium Chloride 0.9% 1000 Ml IV 06/15/21 12:59 Infused .Q1H1M STA Infusion Sodium Chloride Confirm 06/15/21 12:00 Sodium Chloride 0.9% 1000 Ml Administered 06/15/21 12:01 Dose 1,000 mls @ ud .ROUTE .STK-MED ONE Ceftriaxone Sodium/Dextrose 1 g in 50 mls @ 100 mls/hr 06/15/21 12:24 06/15/21 13:35 Rocephin 1 Gm-D5w 50 Ml Bag IV 06/15/21 12:53 Infused STAT STA Infusion Sodium Chloride 1,000 mls @ 999 mls/hr 06/15/21 12:25 06/15/21 14:10 Sodium Chloride 0.9% 1000 Ml IV 06/15/21 13:25 Infused .Q1H1M STA Infusion Sodium Chloride Confirm 06/15/21 12:46 Sodium Chloride 0.9% 1000 Ml Administered 06/15/21 12:47 Dose 1,000 mls @ ud .ROUTE .STK-MED ONE Ceftriaxone Sodium/Dextrose Confirm 06/15/21 12:46 Rocephin 1 Gm-D5w 50 Ml Bag Administered 06/15/21 12:47 Dose 1 g in 50 mls @ ud IV .STK-MED ONE Sodium Chloride 1,000 mls @ 200 mls/hr 06/15/21 15:26 06/15/21 23:04 Sodium Chloride 0.9% 1000 Ml IV 06/16/21 01:25 Not Given .Q5H BRAYDEN Ceftriaxone Sodium/Dextrose 1 g in 50 mls @ 100 mls/hr 06/15/21 16:00 Rocephin 1 Gm-D5w 50 Ml Bag IV 06/18/21 15:59 DAILY BRAYDEN Sodium Chloride 1,000 mls @ 150 mls/hr 06/15/21 01:00 06/16/21 01:14 Sodium Chloride 0.9% 1000 Ml IV 07/15/21 00:59 200 mls/hr .Q6H40M BRAYDEN Administration Dextrose/Sodium Chloride 1,000 mls @ 150 mls/hr 06/16/21 02:45 06/16/21 08:29 Dextrose 5% -0.45 Nacl 1000 Ml IV 07/16/21 02:44 200 mls/hr .Q6H40M BRAYDEN Administration Sodium Bicarbonate 100 meq/ 1,000 mls @ 250 mls/hr 06/16/21 02:45 06/16/21 09:12 Sodium Chloride IV 07/16/21 02:44 250 mls/hr .Q4H BRAYDEN 250 mls/hr Administration Ceftriaxone Sodium/Dextrose 1 g in 50 mls @ 100 mls/hr 06/16/21 10:00 Rocephin 1 Gm-D5w 50 Ml Bag IV 06/19/21 09:59 Q24H10 BRAYDEN Non-Formulary Medication 37.5 each 06/16/21 10:00 Tramadol Hcl/Acetaminophen [Tramadol-Acetaminophn 37.5-325] PO 07/16/21 09:59 BID BRADYEN Ondansetron HCl 4 mg 06/15/21 11:59 06/15/21 12:01 Zofran 4 Mg/2 Ml Vial IV 06/15/21 12:00 4 mg STAT ONE Administration Ondansetron HCl Confirm 06/15/21 12:00 Zofran 4 Mg/2 Ml Vial Administered 06/15/21 12:01 Dose 4 mg .ROUTE .STK-MED ONE Patiromer 8.4 gm 06/15/21 12:25 06/15/21 12:51 Veltassa PO 06/15/21 12:26 8.4 gm STAT STA Administration Patiromer Confirm 06/15/21 12:46 [place] Administered 06/15/21 12:47 Dose 8.4 gm PO .STK-MED ONE Sodium Bicarbonate 50 meq 06/15/21 12:26 06/15/21 12:50 Sodium Bicarbonate 50 Meq/50 Ml Abboject IV 06/15/21 12:27 50 meq STAT ONE Administration Sodium Bicarbonate Confirm 06/15/21 12:46 Sodium Bicarbonate 50 Meq/50 Ml Abboject Administered 06/15/21 12:47 Dose 50 meq IV .STK-MED ONE Sodium Bicarbonate Confirm 06/16/21 02:46 Sodium Bicarbonate 50 Meq/50 Ml Abboject Administered 06/16/21 02:47 Dose 100 meq IV .STK-MED ONE Tramadol HCl 50 mg 06/15/21 22:27 06/15/21 22:38 Ultram 50 Mg PO 06/15/21 22:28 50 mg ONCE ONE Administration Tramadol HCl 50 mg 06/16/21 10:00 06/16/21 10:14 Ultram 50 Mg PO 07/16/21 09:59 50 mg BID BRAYDEN Administration Intake & Output (Last 24 hours) 06/14/21 06/15/21 06/16/21 06/17/21 11:59 11:59 11:59 11:59 Intake Total 4876 6579 Output Total 0 Balance 4876 6579 Weight 61.1 kg 62.7 kg Microbiology Results (Last 24 hours) 06/15/21 10:59 Clean Catch Midstream Urine Culture - Final Escherichia Coli Laboratory Results (Last 24 hours) 06/17/21 06/17/21 06/17/21 06:06 05:06 04:03 WBC RBC Hgb Hct MCV MCH MCHC RDW Plt Count MPV Gran % Eos # (Auto) Absolute Lymphs (auto) Absolute Monos (auto) Lymphocytes % Monocytes % Eosinophils % Basophils % Absolute Granulocytes Basophils # Sodium Potassium Chloride Carbon Dioxide Anion Gap BUN Creatinine Estimated GFR Glucose POC Glucometer 119 H 137 H 133 H Hemoglobin A1c Calcium Total Bilirubin AST ALT Alkaline Phosphatase Serum Total Protein Albumin 06/17/21 06/17/21 06/17/21 03:04 02:14 02:08 WBC RBC Hgb Hct MCV MCH MCHC RDW Plt Count MPV Gran % Eos # (Auto) Absolute Lymphs (auto) Absolute Monos (auto) Lymphocytes % Monocytes % Eosinophils % Basophils % Absolute Granulocytes Basophils # Sodium 133 L Potassium 4.8 Chloride 104 Carbon Dioxide 18 L Anion Gap 16.5 H BUN 62 H Creatinine 6.36 H Estimated GFR 6.9 Glucose 183 H POC Glucometer 154 H 172 H Hemoglobin A1c Calcium 7.6 L Total Bilirubin AST ALT Alkaline Phosphatase Serum Total Protein Albumin 06/17/21 06/17/21 06/16/21 01:16 00:15 23:01 WBC RBC Hgb Hct MCV MCH MCHC RDW Plt Count MPV Gran % Eos # (Auto) Absolute Lymphs (auto) Absolute Monos (auto) Lymphocytes % Monocytes % Eosinophils % Basophils % Absolute Granulocytes Basophils # Sodium Potassium Chloride Carbon Dioxide Anion Gap BUN Creatinine Estimated GFR Glucose POC Glucometer 193 H 175 H 131 H Hemoglobin A1c Calcium Total Bilirubin AST ALT Alkaline Phosphatase Serum Total Protein Albumin 06/16/21 06/16/21 06/16/21 22:34 22:02 21:00 WBC RBC Hgb Hct MCV MCH MCHC RDW Plt Count MPV Gran % Eos # (Auto) Absolute Lymphs (auto) Absolute Monos (auto) Lymphocytes % Monocytes % Eosinophils % Basophils % Absolute Granulocytes Basophils # Sodium 133 L Potassium 4.5 Chloride 103 Carbon Dioxide 18 L Anion Gap 16.1 H BUN 62 H Creatinine 6.50 H Estimated GFR 6.8 Glucose 137 H POC Glucometer 126 H 137 H Hemoglobin A1c Calcium 7.5 L Total Bilirubin AST ALT Alkaline Phosphatase Serum Total Protein Albumin 06/16/21 06/16/21 06/16/21 20:03 19:13 18:32 WBC RBC Hgb Hct MCV MCH MCHC RDW Plt Count MPV Gran % Eos # (Auto) Absolute Lymphs (auto) Absolute Monos (auto) Lymphocytes % Monocytes % Eosinophils % Basophils % Absolute Granulocytes Basophils # Sodium 133 L Potassium 4.1 Chloride 105 Carbon Dioxide 14 L* Anion Gap 17.4 H BUN 65 H Creatinine 6.66 H Estimated GFR 6.6 Glucose 67 L POC Glucometer 130 H 61 L Hemoglobin A1c Calcium 7.3 L Total Bilirubin AST ALT Alkaline Phosphatase Serum Total Protein Albumin 06/16/21 06/16/21 06/16/21 17:46 17:01 16:15 WBC RBC Hgb Hct MCV MCH MCHC RDW Plt Count MPV Gran % Eos # (Auto) Absolute Lymphs (auto) Absolute Monos (auto) Lymphocytes % Monocytes % Eosinophils % Basophils % Absolute Granulocytes Basophils # Sodium Potassium Chloride Carbon Dioxide Anion Gap BUN Creatinine Estimated GFR Glucose POC Glucometer 121 H 125 H 137 H Hemoglobin A1c Calcium Total Bilirubin AST ALT Alkaline Phosphatase Serum Total Protein Albumin 06/16/21 06/16/21 06/16/21 14:30 14:21 13:48 WBC RBC Hgb Hct MCV MCH MCHC RDW Plt Count MPV Gran % Eos # (Auto) Absolute Lymphs (auto) Absolute Monos (auto) Lymphocytes % Monocytes % Eosinophils % Basophils % Absolute Granulocytes Basophils # Sodium 134 L Potassium 4.1 Chloride 104 Carbon Dioxide 17 L Anion Gap 17.3 H BUN 64 H Creatinine 6.95 H Estimated GFR 6.3 Glucose 195 H POC Glucometer 194 H 202 H Hemoglobin A1c Calcium 7.1 L Total Bilirubin 0.40 AST 54 H ALT 17 Alkaline Phosphatase 113 Serum Total Protein 6.1 L Albumin 2.6 L 06/16/21 06/16/21 06/16/21 12:37 11:28 10:28 WBC RBC Hgb Hct MCV MCH MCHC RDW Plt Count MPV Gran % Eos # (Auto) Absolute Lymphs (auto) Absolute Monos (auto) Lymphocytes % Monocytes % Eosinophils % Basophils % Absolute Granulocytes Basophils # Sodium Potassium Chloride Carbon Dioxide Anion Gap BUN Creatinine Estimated GFR Glucose POC Glucometer 193 H 195 H 219 H Hemoglobin A1c Calcium Total Bilirubin AST ALT Alkaline Phosphatase Serum Total Protein Albumin 06/16/21 06/16/21 06/16/21 10:20 09:27 08:36 WBC RBC Hgb Hct MCV MCH MCHC RDW Plt Count MPV Gran % Eos # (Auto) Absolute Lymphs (auto) Absolute Monos (auto) Lymphocytes % Monocytes % Eosinophils % Basophils % Absolute Granulocytes Basophils # Sodium 134 L Potassium 4.0 Chloride 103 Carbon Dioxide 17 L Anion Gap 18.0 H BUN 68 H Creatinine 7.13 H Estimated GFR 6.1 Glucose 224 H POC Glucometer 228 H 182 H Hemoglobin A1c Calcium 7.3 L Total Bilirubin AST ALT Alkaline Phosphatase Serum Total Protein Albumin 06/16/21 06/16/21 06/16/21 07:34 06:29 06:00 WBC RBC Hgb Hct MCV MCH MCHC RDW Plt Count MPV Gran % Eos # (Auto) Absolute Lymphs (auto) Absolute Monos (auto) Lymphocytes % Monocytes % Eosinophils % Basophils % Absolute Granulocytes Basophils # Sodium Potassium Chloride Carbon Dioxide Anion Gap BUN Creatinine Estimated GFR Glucose POC Glucometer 157 H 146 H Hemoglobin A1c 9.95 H Calcium Total Bilirubin AST ALT Alkaline Phosphatase Serum Total Protein Albumin 06/16/21 06/16/21 06:00 06:00 WBC 10.2 RBC 3.16 L Hgb 8.9 L Hct 28.1 L MCV 88.9 MCH 28.2 MCHC 31.7 L RDW 16.8 H Plt Count 220 D MPV 9.4 Gran % 81.3 H Eos # (Auto) 0.01 Absolute Lymphs (auto) 1.17 Absolute Monos (auto) 0.72 Lymphocytes % 11.5 L Monocytes % 7.1 Eosinophils % 0.1 Basophils % 0.0 Absolute Granulocytes 8.30 H Basophils # 0 Sodium 135 L Potassium 4.2 Chloride 104 Carbon Dioxide 15 L* Anion Gap 20.5 H BUN 71 H Creatinine 7.53 H Estimated GFR 5.7 Glucose 171 H POC Glucometer Hemoglobin A1c Calcium 7.5 L Total Bilirubin 0.50 AST 47 H ALT 17 Alkaline Phosphatase 105 Serum Total Protein 6.6 Albumin 2.9 L Orders (Last 24 hours) Category Date Time Status Consistent Carbohydrate Diet 1800 Calorie Diet 06/16/21 Dinner Active BMP Q4H Lab 06/16/21 18:32 Completed BMP Q4H Lab 06/16/21 22:34 Completed BMP Q4H Lab 06/17/21 02:14 Completed BMP Q4H Lab 06/17/21 06:00 Ordered BMP Routine Lab 06/16/21 10:20 Completed CBC W DIFF AM.LAB Lab 06/16/21 06:00 Completed CMP AM.LAB Lab 06/16/21 06:00 Completed CMP Urgent Lab 06/16/21 14:30 Completed HEMOGLOBIN A1C Urgent Lab 06/16/21 06:00 Completed POCT GLUCOSE Stat Lab 06/16/21 05:31 Completed POCT GLUCOSE Stat Lab 06/16/21 06:29 Completed POCT GLUCOSE Stat Lab 06/16/21 07:34 Completed POCT GLUCOSE Stat Lab 06/16/21 08:36 Completed POCT GLUCOSE Stat Lab 06/16/21 09:27 Completed POCT GLUCOSE Stat Lab 06/16/21 10:28 Completed POCT GLUCOSE Stat Lab 06/16/21 11:28 Completed POCT GLUCOSE Stat Lab 06/16/21 12:37 Completed POCT GLUCOSE Stat Lab 06/16/21 13:48 Completed POCT GLUCOSE Stat Lab 06/16/21 14:21 Completed POCT GLUCOSE Stat Lab 06/16/21 16:15 Completed POCT GLUCOSE Stat Lab 06/16/21 17:01 Completed POCT GLUCOSE Stat Lab 06/16/21 17:46 Completed POCT GLUCOSE Stat Lab 06/16/21 19:13 Completed POCT GLUCOSE Stat Lab 06/16/21 20:03 Completed POCT GLUCOSE Stat Lab 06/16/21 21:00 Completed POCT GLUCOSE Stat Lab 06/16/21 22:02 Completed POCT GLUCOSE Stat Lab 06/16/21 23:01 Completed POCT GLUCOSE Stat Lab 06/17/21 00:15 Completed POCT GLUCOSE Stat Lab 06/17/21 01:16 Completed POCT GLUCOSE Stat Lab 06/17/21 02:06 Received POCT GLUCOSE Stat Lab 06/17/21 02:08 Completed POCT GLUCOSE Stat Lab 06/17/21 03:04 Completed POCT GLUCOSE Stat Lab 06/17/21 04:03 Completed POCT GLUCOSE Stat Lab 06/17/21 05:06 Completed POCT GLUCOSE Stat Lab 06/17/21 06:06 Completed Acetaminophen 325 mg [Tylenol 325 mg] Med 06/16/21 10:00 Discontinued 325 mg PO BID Ceftriaxone 1 GM/50 ML PREMIX* [ROCEPHIN 1 Gm-D5w 50 ml Med 06/16/21 10:00 Active Bag] 1 g in 50 ml IV DAILY Ceftriaxone 1 GM/50 ML PREMIX* [ROCEPHIN 1 Gm-D5w 50 ml Med 06/16/21 10:00 Discontinued Bag] 1 g in 50 ml IV Q24H10 D5w-0.45NACL W/ 20Meq KCl [D5W/0.45NS W/ 20mEq KCl 1000 Med 06/16/21 13:40 Active ML] 1,000 ml IV 150 mls/hr Dextrose 50%-Water 50 ml Vial* [D50W 50ML Vial] Med 06/16/21 07:15 Active 25 ml IV UD PRN Dextrose 50%-Water Syringe [D50W 50 ml Abboject] Med 06/16/21 19:21 Discontinued 100 ml IV .STK-MED ONE Insulin Glargine [Lantus Insulin] Med 06/16/21 22:00 Active 24 unit SQ HS Insulin Lispro [Humalog] Med 06/16/21 11:30 Active 10 unit SQ AC Levothyroxine Sodium 88 Mcg [Synthroid 88 Mcg] Med 06/16/21 10:00 Active 88 mcg PO DAILY Lisinopril 5 mg [Zestril 5 MG] Med 06/16/21 10:00 Active 5 mg PO DAILY Paroxetine HCl 20 mg [Paxil 20 MG] Med 06/16/21 10:00 Active 20 mg PO DAILY Patient Own Med [Patient Own Medication] Med 06/16/21 12:30 Active 0 each PO BID Potassium Chloride 10 Meq Tab* [Klor Con 10 MEQ] Med 06/16/21 10:00 Active 20 meq PO BID Simvastatin 20Mg [Zocor 20Mg] Med 06/16/21 22:00 Active 40 mg PO HS Tramadol HCl 50 mg [Ultram 50 mg] Med 06/16/21 10:00 Discontinued 50 mg PO BID Tramadol HCl/Acetaminophen [Tramadol-Acetaminophn 37.5- Med 06/16/21 10:00 Discontinued 325] 37.5 each PO BID Patient Care Notes (Last 24 hours) 06/16/21 19:53 Nursing Note by Kyra King Late Entry 1925 Half and amp of D50 given IVP for BG of 61. I plan on holding scheduled dose of Lantus at 2200. Insulin drip continues at one unit. Initialized on 06/16/21 19:53 - END OF NOTE 06/16/21 13:38 Nursing Note by Jeronimo Mckeon IVF changed to d5.45 with 20 meq kcl at 150/hr per protocol. Patient sleeping well, resp easy. sinus rhythm on monitor with hr at 78/min. Initialized on 06/16/21 13:38 - END OF NOTE 06/16/21 12:13 Nursing Note by Jeronimo Mckeon Patient asleep, snoring, resp easy, monitor shows sinus rhythm, Initialized on 06/16/21 12:13 - END OF NOTE 06/16/21 09:14 Nursing Note by Jeronimo Mckeon Rest easy, talking normal conversation with patient. Monitor shows SR with occasional unifocal pvc, Denies pain. Resp easy, IVs patent and infusing well. Initialized on 06/16/21 09:14 - END OF NOTE 06/16/21 07:46 Nursing Note by Jeronimo Mckeon Patient resting easy, NSR on monitor, sitting up drinking water, has no complaints or concerns at this time. IVS patent and infusing as ordered. Initialized on 06/16/21 07:46 - END OF NOTE 06/16/21 07:45 Nursing Note by Jeronimo Mckeon Dr rounded this am and ordered 1800 lissy ada diet and diet to advance as tolerated. Initialized on 06/16/21 07:45 - END OF NOTE 06/16/21 07:43 Nursing Admission Note by Jeronimo Mckeon Lab called critical co2 of [address] Aleman here and was notified. Initialized on 06/16/21 07:43 - END OF NOTE Code(s): E11.10 - TYPE 2 DIABETES MELLITUS WITH KETOACIDOSIS WITHOUT COMA (2) Acute on chronic renal insufficiency Current Visit: Yes Status: Acute Code(s): N28.9 - DISORDER OF KIDNEY AND URETER, UNSPECIFIED; N18.9 - CHRONIC KIDNEY DISEASE, UNSPECIFIED (3) Diabetes mellitus Current Visit: No Status: Chronic Code(s): E11.9 - TYPE 2 DIABETES MELLITUS WITHOUT COMPLICATIONS (4) Dehydration Current Visit: No Status: Resolved Code(s): E86.0 - DEHYDRATION
[2021-06-17 06:54] LABS: ANION GAP 16.2 MEQ/L (5-15); Calcium 7.8 mg/dL (8.4-10.2); Creatinine 1 6.32 mg/dL (0.52-1.04); Potassium 4.8 mmol/L (3.5-5.1)
[2021-06-17] MEDS: ENOXAPARIN SODIUM SQ SCH (09:17)
[2021-06-17] MEDS: ROCEPHIN 1 Gm-D5w 50 ml Bag** 1 G/50 ML IVPB IV SCH (09:17)
[2021-06-17] MEDS: Paxil 20 MG PO SCH (09:18)
[2021-06-17] MEDS: Klor Con 10 MEQ PO SCH ×2 (09:18→22:24)
[2021-06-17] MEDS: Zestril 5 MG PO SCH (09:18)
[2021-06-17] MEDS: PROTONIX 40 MG IV IV SCH (09:18)
[2021-06-17] MEDS: SYNTHROID 88 MCG PO SCH (09:18)
[2021-06-17] MEDS ORDERED: D50W 50 ml Abboject IV PRN (09:38)
[2021-06-17] MEDS ORDERED: PHARMACY DOSING REQUEST MC ONE (11:42)
[2021-06-17] MEDS: HUMALOG SQ PRN ×3 (12:58→22:27)
[2021-06-17] MEDS: Zosyn 2.25 GM 2.25 GM in Sodium Chloride 100ML MINI-BAG PLUS 100 ML IV SCH ×2 (13:51→22:23)
[2021-06-17] MEDS: PATIENT OWN MEDICATION PO SCH ×2 (13:52→22:24)
[2021-06-17] MEDS ORDERED: Dextrose 5% -0.45 NaCl 1000 ML 1,000 ML IV SCH (16:00)
[2021-06-17] MEDS: TYLENOL 325 MG PO PRN (17:36)
[2021-06-17] MEDS: Sodium Chloride 0.9% 1000 ML 1,000 ML IV SCH (18:08)
[2021-06-17] MEDS: Lantus Insulin SQ SCH (22:25)
[2021-06-17] MEDS: Floxin Otic 5 ML OT SCH (22:25)
[2021-06-17] MEDS: ZOCOR 20MG PO SCH (22:25)
[2021-06-18] MEDS: Sodium Chloride 0.9% 1000 ML 1,000 ML IV SCH ×4 (01:04→22:44)
[2021-06-18] MEDS: Zosyn 2.25 GM 2.25 GM in Sodium Chloride 100ML MINI-BAG PLUS 100 ML IV SCH ×3 (04:54→22:37)
[2021-06-18 06:29] LABS: Hematocrit 28.5 % (35-47); Hemoglobin 8.7 gm/dl (12.0-16.0); Mean Cell Volume 90.8 fl (78-100); Mean Corpuscular Hemoglobin 27.7 pg (26-32); Mean Corpuscular Hgb Concent. 30.5 g/dl (32-36); Mean Platelet Volume 9.2 fl (7.5-11.0); Platelet Count 231 K/mm3 (150-450); Red Blood Count 3.14 M/mm3 (4.1-5.4); Red Cell Distribution Width 17.3 % (11.5-14.0)
[2021-06-18 06:55] LABS: ANION GAP 17.1 MEQ/L (5-15); Calcium 7.8 mg/dL (8.4-10.2); Creatinine 1 5.68 mg/dL (0.52-1.04); EST GLOMERULAR FILTRATION RATE 7.9 ML/MIN
--- NOTE | 2021-06-18 08:15 | PCM.NOTE ---
Date and Time: 06/18/21812 Subjective Assessment: doing better - Review of Systems Constitutional: No Fever, No Chills Eyes: No Symptoms Ears, Nose, & Throat: No Symptoms Respiratory: No Cough, No Short Of Breath Cardiac: No Chest Pain, No Edema, No Syncope Abdominal/Gastrointestinal: No Abdominal Pain, No Nausea, No Vomiting, No Diarrhea Genitourinary Symptoms: No Dysuria Musculoskeletal: No Back Pain, No Neck Pain Skin: No Rash Neurological: No Dizziness, No Focal Weakness, No Sensory Changes Psychological: No Symptoms Endocrine: No Symptoms Hematologic/Lymphatic: No Symptoms Immunological/Allergic: No Symptoms Objective Exam General Appearance: no apparent distress, alert Neurologic Exam: alert, oriented x 3, cooperative, normal mood/affect, nml cerebellar function, sensation nml, No motor deficits Skin Exam: normal color, warm, dry Wound Assessment: Skin/Wound Assessment Wound/Incision Assessment Start: 06/16/21 08:42 Text: Status: Active Freq: Q6H Protocol: Document 06/18/21 02:00 BSO (Rec: 06/18/21 02:02 BSO [id number]) Wound Photo Photo Taken No Eye Exam: PERRL, EOMI, eyes nml inspection Ears, Nose, Throat Exam: normal ENT inspection, pharynx normal, moist mucous membranes Neck Exam: normal inspection, non-tender, supple, full range of motion Respiratory Exam: normal breath sounds, lungs clear, No respiratory distress Cardiovascular Exam: regular rate/rhythm, normal heart sounds Gastrointestinal/Abdomen Exam: soft, No tenderness, No mass Extremity Exam: normal inspection, normal range of motion Back Exam: normal inspection, normal range of motion, No CVA tenderness, No vertebral tenderness Pelvic Exam: deferred Rectal Exam: deferred OBJECTIVE DATA Vital Signs: Vital Signs - 24 hr Temp Pulse Resp BP Pulse Ox 06/18/21 04:00 97.4 F 78 18 151/83 98 06/18/21 03:47 60 06/18/21 00:00 97.8 F 60 16 147/65 95 06/17/21 20:00 98.2 F 79 16 156/70 100 06/17/21 16:00 97.7 F 98 H 20 152/73 98 06/17/21 14:00 96 H 06/17/21 12:00 97.6 F 96 H 18 143/63 98 Pain Assessment - Last Documented Pain Intensity 0 Pain Scale Used 0-10 Pain Scale Intake and Output: Intake & Output 06/15/21 06/16/21 06/17/21 06/18/21 11:59 11:59 11:59 11:59 Intake Total 4840 6941 4449 Output Total 0 1000 1550 Balance 6023 5605 9509 Weight 61.1 kg 62.7 kg 66.2 kg 67.7 kg Lab Results: Lab Results-Last 24 Hours 06/17/21 06/17/21 06/17/21 Range/Units 11:34 17:11 22:03 WBC (4.0-10.5) K/mm3 RBC (4.1-5.4) M/mm3 Hgb (12.0-16.0) gm/dl Hct (35-47) % MCV (78-100) fl MCH (26-32) pg MCHC (32-36) g/dl RDW (11.5-14.0) % Plt Count (150-450) K/mm3 MPV (7.5-11.0) fl Sodium (137-145) mmol/L Potassium (3.5-5.1) mmol/L Chloride (98-107) mmol/L Carbon Dioxide (22-30) mmol/L Anion Gap (5-15) MEQ/L BUN (7-17) mg/dL Creatinine (0.52-1.04) mg/dL Estimated GFR ML/MIN Glucose (74-106) mg/dL POC Glucometer 384 H 379 H 180 H (74 to 106) mg/dL Calcium (8.4-10.2) mg/dL 06/18/21 06/18/21 06/18/21 Range/Units 04:45 04:45 07:16 WBC 15.0 H (4.0-10.5) K/mm3 RBC 3.14 L (4.1-5.4) M/mm3 Hgb 8.7 L (12.0-16.0) gm/dl Hct 28.5 L (35-47) % MCV 90.8 (78-100) fl MCH 27.7 (26-32) pg MCHC 30.5 L (32-36) g/dl RDW 17.3 H (11.5-14.0) % Plt Count 231 (150-450) K/mm3 MPV 9.2 (7.5-11.0) fl Sodium 136 L (137-145) mmol/L Potassium 5.0 (3.5-5.1) mmol/L Chloride 107 (98-107) mmol/L Carbon Dioxide 17 L (22-30) mmol/L Anion Gap 17.1 H (5-15) MEQ/L BUN 56 H (7-17) mg/dL Creatinine 5.68 H (0.52-1.04) mg/dL Estimated GFR 7.9 ML/MIN Glucose 70 L (74-106) mg/dL POC Glucometer 62 L (74 to 106) mg/dL Calcium 7.8 L (8.4-10.2) mg/dL Assessment/Plan (1) Ketoacidosis due to diabetes mellitus Current Visit: Yes Status: Acute Qualifiers: Diabetes mellitus type: other specified (including PRETTY) Diabetes mellitus complication detail: without coma Qualified Code(s): E13.10 - Other specified diabetes mellitus with ketoacidosis without coma Code(s): E11.10 - TYPE 2 DIABETES MELLITUS WITH KETOACIDOSIS WITHOUT COMA (2) Acute on chronic renal insufficiency Current Visit: Yes Status: Acute Code(s): N28.9 - DISORDER OF KIDNEY AND URETER, UNSPECIFIED; N18.9 - CHRONIC KIDNEY DISEASE, UNSPECIFIED (3) Diabetes mellitus Current Visit: No Status: Chronic Code(s): E11.9 - TYPE 2 DIABETES MELLITUS WITHOUT COMPLICATIONS (4) Dehydration Current Visit: No Status: Resolved Code(s): E86.0 - DEHYDRATION
[2021-06-18] MEDS: PROTONIX 40 MG IV IV SCH (10:03)
[2021-06-18] MEDS: SYNTHROID 88 MCG PO SCH (10:03)
[2021-06-18] MEDS: ENOXAPARIN SODIUM SQ SCH (10:03)
[2021-06-18] MEDS: Zestril 5 MG PO SCH (10:03)
[2021-06-18] MEDS: Paxil 20 MG PO SCH (10:03)
[2021-06-18] MEDS: Klor Con 10 MEQ PO SCH ×2 (10:04→21:49)
[2021-06-18] MEDS: PATIENT OWN MEDICATION PO SCH ×2 (10:04→21:49)
[2021-06-18] MEDS: HUMALOG SQ PRN ×2 (12:00→21:52)
[2021-06-18] MEDS ORDERED: PROVENTIL 2.5 MG/3 ML NEB IH PRN (12:05)
[2021-06-18] MEDS: HUMULIN R 100 UNIT in Sodium Chloride 0.9% 100 ML BAG 100 ML IV SCH (16:42)
[2021-06-18] MEDS: SODIUM BICARBONATE IV SCH (16:42)
[2021-06-18] MEDS: SODIUM CHLORIDE 0.9% IV SCH (16:42)
[2021-06-18] MEDS: ZOCOR 20MG PO SCH (21:45)
[2021-06-18] MEDS: TYLENOL 325 MG PO PRN (21:50)
[2021-06-18] MEDS: Robitussin-Dm Syrup PO PRN (21:50)
[2021-06-18] MEDS: Floxin Otic 5 ML OT SCH (21:51)
[2021-06-18] MEDS: Lantus Insulin SQ SCH (21:52)
[2021-06-19] MEDS: TYLENOL 325 MG PO PRN ×2 (02:23→17:39)
[2021-06-19] MEDS: Robitussin-Dm Syrup PO PRN (02:24)
[2021-06-19] MEDS: Zosyn 2.25 GM 2.25 GM in Sodium Chloride 100ML MINI-BAG PLUS 100 ML IV SCH ×2 (05:00→15:14)
[2021-06-19] MEDS: Sodium Chloride 0.9% 1000 ML 1,000 ML IV SCH ×3 (05:00→19:35)
[2021-06-19 06:41] LABS: Hematocrit 27.7 % (35-47); Hemoglobin 8.4 gm/dl (12.0-16.0); Mean Cell Volume 92.3 fl (78-100); Mean Corpuscular Hgb Concent. 30.3 g/dl (32-36); Mean Platelet Volume 8.9 fl (7.5-11.0); Platelet Count 262 K/mm3 (150-450); Red Cell Distribution Width 17.8 % (11.5-14.0); White Blood Count 14.3 K/mm3 (4.0-10.5)
[2021-06-19 07:19] LABS: Calcium 7.7 mg/dL (8.4-10.2); Creatinine 1 4.95 mg/dL (0.52-1.04); EST GLOMERULAR FILTRATION RATE 9.3 ML/MIN
[2021-06-19] MEDS: ENOXAPARIN SODIUM SQ SCH (11:22)
[2021-06-19] MEDS: Zestril 5 MG PO SCH (11:22)
[2021-06-19] MEDS: Paxil 20 MG PO SCH (11:22)
[2021-06-19] MEDS: PATIENT OWN MEDICATION PO SCH ×2 (11:22→22:04)
[2021-06-19] MEDS: Klor Con 10 MEQ PO SCH ×2 (11:22→22:02)
[2021-06-19] MEDS: PROTONIX 40 MG IV IV SCH (11:23)
[2021-06-19] MEDS: SYNTHROID 88 MCG PO SCH (11:23)
--- NOTE | 2021-06-19 12:19 | PCM.NOTE ---
Date and Time: 06/19/21 1218 Subjective Assessment: doing little better - Review of Systems Constitutional: No Fever, No Chills Eyes: No Symptoms Ears, Nose, & Throat: No Symptoms Respiratory: No Cough, No Short Of Breath Cardiac: No Chest Pain, No Edema, No Syncope Abdominal/Gastrointestinal: No Abdominal Pain, No Nausea, No Vomiting, No Diarrhea Genitourinary Symptoms: No Dysuria Musculoskeletal: No Back Pain, No Neck Pain Skin: No Rash Neurological: No Dizziness, No Focal Weakness, No Sensory Changes Psychological: No Symptoms Endocrine: No Symptoms Hematologic/Lymphatic: No Symptoms Immunological/Allergic: No Symptoms Objective Exam General Appearance: no apparent distress, alert Neurologic Exam: alert, oriented x 3, cooperative, normal mood/affect, nml cerebellar function, sensation nml, No motor deficits Skin Exam: normal color, warm, dry Wound Assessment: Skin/Wound Assessment Wound/Incision Assessment Start: 06/16/21 08:42 Text: Status: Active Freq: Q6H Protocol: Document 06/19/21 08:00 [employer] (Rec: 06/19/21 08:14 BSANT [id number]) Wound Photo Photo Taken No Eye Exam: PERRL, EOMI, eyes nml inspection Ears, Nose, Throat Exam: normal ENT inspection, pharynx normal, moist mucous membranes Neck Exam: normal inspection, non-tender, supple, full range of motion Respiratory Exam: normal breath sounds, lungs clear, No respiratory distress Cardiovascular Exam: regular rate/rhythm, normal heart sounds Gastrointestinal/Abdomen Exam: soft, No tenderness, No mass Extremity Exam: normal inspection, normal range of motion Back Exam: normal inspection, normal range of motion, No CVA tenderness, No vertebral tenderness Pelvic Exam: deferred Rectal Exam: deferred OBJECTIVE DATA Vital Signs: Vital Signs - 24 hr Temp Pulse Resp BP Pulse Ox 06/19/21 10:52 84 21 100 06/19/21 08:00 97.5 F 79 12 115/83 97 06/19/21 04:00 98.6 F 83 18 107/58 96 06/18/21 23:48 97.9 F 93 H 18 131/64 92 L 06/18/21 22:30 102 H 14 97 06/18/21 19:54 91 H 06/18/21 19:43 97.8 F 91 H 16 113/63 95 06/18/21 16:00 95.6 F 85 12 111/49 98 06/18/21 13:20 87 16 96 Pain Assessment - Last Documented Pain Intensity 0 Pain Scale Used 0-10 Pain Scale Intake and Output: Intake & Output 06/17/21 06/18/21 06/19/21 06/20/21 11:59 11:59 11:59 11:59 Intake Total 6952 4468 3903 Output Total 1000 1550 2725 Balance 5939 2899 1178 Weight 66.2 kg 67.7 kg 69.1 kg Lab Results: Lab Results-Last 24 Hours 06/18/21 06/18/21 06/19/21 Range/Units 17:38 21:07 04:45 WBC 14.3 H (4.0-10.5) K/mm3 RBC 3.00 L (4.1-5.4) M/mm3 Hgb 8.4 L (12.0-16.0) gm/dl Hct 27.7 L (35-47) % MCV 92.3 (78-100) fl MCH 28.0 (26-32) pg MCHC 30.3 L (32-36) g/dl RDW 17.8 H (11.5-14.0) % Plt Count 262 (150-450) K/mm3 MPV 8.9 (7.5-11.0) fl Sodium (137-145) mmol/L Potassium (3.5-5.1) mmol/L Chloride (98-107) mmol/L Carbon Dioxide (22-30) mmol/L Anion Gap (5-15) MEQ/L BUN (7-17) mg/dL Creatinine (0.52-1.04) mg/dL Estimated GFR ML/MIN Glucose (74-106) mg/dL POC Glucometer 136 H 169 H (74 to 106) mg/dL Calcium (8.4-10.2) mg/dL 06/19/21 06/19/21 Range/Units 04:45 07:21 WBC (4.0-10.5) K/mm3 RBC (4.1-5.4) M/mm3 Hgb (12.0-16.0) gm/dl Hct (35-47) % MCV (78-100) fl MCH (26-32) pg MCHC (32-36) g/dl RDW (11.5-14.0) % Plt Count (150-450) K/mm3 MPV (7.5-11.0) fl Sodium 137 (137-145) mmol/L Potassium 5.0 (3.5-5.1) mmol/L Chloride 111 H (98-107) mmol/L Carbon Dioxide 15 L* (22-30) mmol/L Anion Gap 16.0 H (5-15) MEQ/L BUN 51 H (7-17) mg/dL Creatinine 4.95 H (0.52-1.04) mg/dL Estimated GFR 9.3 ML/MIN Glucose 203 H (74-106) mg/dL POC Glucometer 139 H (74 to 106) mg/dL Calcium 7.7 L (8.4-10.2) mg/dL Assessment/Plan (1) Sepsis due to Escherichia coli Current Visit: Yes Status: Acute Qualifiers: Sepsis acute organ dysfunction status: without acute organ dysfunction Qualified Code(s): A41.51 - Sepsis due to Escherichia coli [E. coli] Assessment & Plan: Chief Complaint Diagnosis ckd Allergies Allergy/AdvReac Type Severity Reaction Status Date / Time No Known Drug Allergies Allergy Verified 06/15/21 10:38 Vital Signs (Last 24 hours) Temp Pulse Resp BP Pulse Ox 06/19/21 10:52 84 21 100 06/19/21 08:00 97.5 F 79 12 115/83 97 06/19/21 04:00 98.6 F 83 18 107/58 96 06/18/21 23:48 97.9 F 93 H 18 131/64 92 L 06/18/21 22:30 102 H 14 97 06/18/21 19:54 91 H 06/18/21 19:43 97.8 F 91 H 16 113/63 95 06/18/21 16:00 95.6 F 85 12 111/49 98 06/18/21 13:20 87 16 96 Home Medications Medication Instructions Recorded Confirmed Last Taken Type Tramadol HCl/Acetaminophen 37.5 each PO BID 06/15/21 06/15/21 Unknown History [Tramadol-Acetaminophn 37.5-325] lisinopriL [Lisinopril] 5 mg PO DAILY 06/15/21 06/15/21 Unknown History Current Medications Generic Name Dose Route Start Last Admin Trade Name Freq PRN Reason Stop Dose Admin Acetaminophen 650 mg 06/15/21 15:26 06/19/21 02:23 Tylenol 325 Mg PO 07/15/21 15:25 650 mg Q4H PRN PRN Administration PAIN AND/OR FEVER Albuterol Sulfate 2.5 mg 06/18/21 12:05 Proventil 2.5 Mg/3 Ml Neb IH 07/18/21 12:04 Q4H PRN PRN SHORTNESS OF BREATH/WHEEZING Dextrose 25 ml 06/17/21 09:38 D50w 50 Ml Abboject IV 07/17/21 09:37 UD PRN Enoxaparin Sodium 40 mg 06/15/21 16:00 06/19/21 11:22 Enoxaparin Sodium SQ 07/15/21 15:59 40 mg DAILY BRAYDEN Administration Guaifenesin/Dextromethorphan 10 ml 06/18/21 12:04 06/19/21 02:24 Robitussin-Dm Syrup PO 07/18/21 12:03 10 ml Q4H PRN PRN Administration COUGH Piperacillin Sod/Tazobactam 100 mls @ 200 mls/hr 06/17/21 14:00 06/19/21 05:00 Sod 2.25 gm/ Sodium Chloride IV 07/17/21 13:59 200 mls/hr Q8HT BRAYDEN Administration Sodium Chloride 1,000 mls @ 150 mls/hr 06/17/21 17:45 06/19/21 05:00 Sodium Chloride 0.9% 1000 Ml IV 07/17/21 17:44 150 mls/hr .Q6H40M BRAYDEN Administration Meropenem 500 mg/ Sodium 100 mls @ 200 mls/hr 06/19/21 12:17 Chloride IV 07/19/21 12:16 Q8HT BRAYDEN Insulin Glargine 24 unit 06/16/21 22:00 06/18/21 21:52 Lantus Insulin SQ 07/16/21 21:59 24 unit HS BRAYDEN Administration Insulin Human Lispro 0 unit 06/17/21 11:40 06/18/21 21:52 Humalog SQ 07/17/21 11:39 3 unit UD PRN Administration HYPERGLYCEMIA Levothyroxine Sodium 88 mcg 06/16/21 10:00 06/19/21 11:23 Synthroid 88 Mcg PO 07/16/21 09:59 88 mcg DAILY BRAYDEN Administration Lisinopril 5 mg 06/16/21 10:00 06/19/21 11:22 Zestril 5 Mg PO 07/16/21 09:59 5 mg DAILY BRAYDEN Administration Ofloxacin 0 ml 06/17/21 22:00 06/18/21 21:51 Floxin Otic 5 Ml OT 07/17/21 21:59 5 ml HS BRAYDEN Administration Ondansetron HCl 4 mg 06/15/21 15:26 06/18/21 20:10 Zofran 4 Mg/2 Ml Vial IV 07/15/21 15:25 4 mg Q6H PRN PRN Administration NAUSEA/VOMITING Pantoprazole Sodium 40 mg 06/15/21 16:00 06/19/21 11:23 Protonix 40 Mg Iv IV 07/15/21 15:59 40 mg DAILY BRAYDEN Administration Paroxetine HCl 20 mg 06/16/21 10:00 06/19/21 11:22 Paxil 20 Mg PO 07/16/21 09:59 20 mg DAILY BRAYDEN Administration Patient Own Med ( 0 each 06/16/21 12:30 06/19/21 11:22 Ultracet) PO 07/16/21 12:29 1 each BID BRAYDEN Administration Potassium Chloride 20 meq 06/16/21 10:00 06/19/21 11:22 Klor Con 10 Meq PO 07/16/21 09:59 20 meq BID BRAYDEN Administration Simvastatin 40 mg 06/16/21 22:00 06/18/21 21:45 Zocor 20mg PO 07/16/21 21:59 40 mg HS BRAYDEN Administration Discontinued Medications Generic Name Dose Route Start Last Admin Trade Name Freq PRN Reason Stop Dose Admin Acetaminophen 325 mg 06/16/21 10:00 06/16/21 10:16 Tylenol 325 Mg PO 07/16/21 09:59 325 mg BID BRAYDEN Administration Albuterol/Ipratropium 3 ml 06/15/21 10:48 06/15/21 11:28 Duoneb 0.5-3 Mg/3 Ml Neb IH 06/15/21 10:49 3 ml STAT ONE Administration Albuterol/Ipratropium Confirm 06/15/21 11:14 Duoneb 0.5-3 Mg/3 Ml Neb Administered 06/15/21 11:15 Dose 3 ml IH .STK-MED ONE Calcium Gluconate 1,000 mg 06/15/21 12:26 06/15/21 12:50 Calcium Gluconate 10% 1000 Mg IV 06/15/21 12:27 1,000 mg STAT ONE Administration Calcium Gluconate Confirm 06/15/21 12:46 Calcium Gluconate 10% 1000 Mg Administered 06/15/21 12:47 Dose 1,000 mg IV .STK-MED ONE Dextrose Confirm 06/15/21 23:49 D50w 50 Ml Abboject Administered 06/15/21 23:50 Dose 50 ml IV .STK-MED ONE Dextrose 25 ml 06/15/21 23:45 06/16/21 05:09 D50w 50ml Vial IV 07/15/21 23:44 25 ml UD BRAYDEN Administration Dextrose Confirm 06/16/21 01:05 D50w 50 Ml Abboject Administered 06/16/21 01:06 Dose 50 ml IV .STK-MED ONE Dextrose Confirm 06/16/21 05:05 D50w 50 Ml Abboject Administered 06/16/21 05:06 Dose 50 ml IV .STK-MED ONE Dextrose 25 ml 06/16/21 07:15 06/16/21 19:29 D50w 50ml Vial IV 07/15/21 23:44 25 ml UD PRN Administration Dextrose Confirm 06/16/21 19:21 D50w 50 Ml Abboject Administered 06/16/21 19:22 Dose 100 ml IV .STK-MED ONE Sodium Chloride 1,000 mls @ 999 mls/hr 06/15/21 11:59 06/15/21 13:16 Sodium Chloride 0.9% 1000 Ml IV 06/15/21 12:59 Infused .Q1H1M STA Infusion Sodium Chloride Confirm 06/15/21 12:00 Sodium Chloride 0.9% 1000 Ml Administered 06/15/21 12:01 Dose 1,000 mls @ ud .ROUTE .STK-MED ONE Ceftriaxone Sodium/Dextrose 1 g in 50 mls @ 100 mls/hr 06/15/21 12:24 06/15/21 13:35 Rocephin 1 Gm-D5w 50 Ml Bag IV 06/15/21 12:53 Infused STAT STA Infusion Sodium Chloride 1,000 mls @ 999 mls/hr 06/15/21 12:25 06/15/21 14:10 Sodium Chloride 0.9% 1000 Ml IV 06/15/21 13:25 Infused .Q1H1M STA Infusion Sodium Chloride Confirm 06/15/21 12:46 Sodium Chloride 0.9% 1000 Ml Administered 06/15/21 12:47 Dose 1,000 mls @ ud .ROUTE .STK-MED ONE Ceftriaxone Sodium/Dextrose Confirm 06/15/21 12:46 Rocephin 1 Gm-D5w 50 Ml Bag Administered 06/15/21 12:47 Dose 1 g in 50 mls @ ud IV .STK-MED ONE Sodium Chloride 1,000 mls @ 200 mls/hr 06/15/21 15:26 06/15/21 23:04 Sodium Chloride 0.9% 1000 Ml IV 06/16/21 01:25 Not Given .Q5H BRAYDEN Ceftriaxone Sodium/Dextrose 1 g in 50 mls @ 100 mls/hr 06/15/21 16:00 Rocephin 1 Gm-D5w 50 Ml Bag IV 06/18/21 15:59 DAILY BRAYDEN Ceftriaxone Sodium/Dextrose 1 g in 50 mls @ 100 mls/hr 06/16/21 10:00 06/17/21 09:17 Rocephin 1 Gm-D5w 50 Ml Bag IV 06/19/21 09:59 100 mls/hr DAILY BRAYDEN Administration Sodium Chloride 1,000 mls @ 150 mls/hr 06/15/21 01:00 06/16/21 01:14 Sodium Chloride 0.9% 1000 Ml IV 07/15/21 00:59 200 mls/hr .Q6H40M BRAYDEN Administration Insulin Human Regular 100 unit 100 mls @ 3 mls/hr 06/15/21 16:30 06/18/21 16:42 / Sodium Chloride IV 07/15/21 16:29 Not Given .Q24H BRAYDEN Dextrose/Sodium Chloride 1,000 mls @ 150 mls/hr 06/16/21 02:45 06/16/21 08:29 Dextrose 5% -0.45 Nacl 1000 Ml IV 07/16/21 02:44 200 mls/hr .Q6H40M BRAYDEN Administration Sodium Bicarbonate 100 meq/ 1,000 mls @ 250 mls/hr 06/16/21 02:45 06/18/21 16 :42 Sodium Chloride IV 07/16/21 02:44 Not Given .Q4H BRAYDEN Ceftriaxone Sodium/Dextrose 1 g in 50 mls @ 100 mls/hr 06/16/21 10:00 Rocephin 1 Gm-D5w 50 Ml Bag IV 06/19/21 09:59 Q24H10 BRAYDEN Potassium Chloride/Dextrose/Sod Cl 1,000 mls @ 150 mls/hr 06/16/21 13:40 06/18/21 02:45 D5w/0.45ns W/ 20meq Kcl 1000 Ml IV 07/16/21 13:39 Infused .Q6H40M BRAYDEN Infusion Dextrose/Sodium Chloride 1,000 mls @ 150 mls/hr 06/17/21 16:00 06/18/21 02:44 Dextrose 5% -0.45 Nacl 1000 Ml IV 07/17/21 15:59 Not Given .Q6H40M BRAYDEN Insulin Human Lispro 10 unit 06/16/21 11:30 06/16/21 16:36 Humalog SQ 07/16/21 11:29 10 unit AC BRAYDEN Administration Non-Formulary Medication 37.5 each 06/16/21 10:00 Tramadol Hcl/Acetaminophen [Tramadol-Acetaminophn 37.5-325] PO 07/16/21 09:59 BID BRAYDEN Non-Formulary Medication 1 each 06/17/21 11:42 06/17/21 15:08 Pharmacy Dosing Request 06/17/21 11:43 Not Given STAT ONE Ondansetron HCl 4 mg 06/15/21 11:59 06/15/21 12:01 Zofran 4 Mg/2 Ml Vial IV 06/15/21 12:00 4 mg STAT ONE Administration Ondansetron HCl Confirm 06/15/21 12:00 Zofran 4 Mg/2 Ml Vial Administered 06/15/21 12:01 Dose 4 mg .ROUTE .STK-MED ONE Patiromer 8.4 gm 06/15/21 12:25 06/15/21 12:51 Veltassa PO 06/15/21 12:26 8.4 gm STAT STA Administration Patiromer Confirm 06/15/21 12:46 V[place] Administered 06/15/21 12:47 Dose 8.4 gm PO .STK-MED ONE Sodium Bicarbonate 50 meq 06/15/21 12:26 06/15/21 12:50 Sodium Bicarbonate 50 Meq/50 Ml Abboject IV 06/15/21 12:27 50 meq STAT ONE Administration Sodium Bicarbonate Confirm 06/15/21 12:46 Sodium Bicarbonate 50 Meq/50 Ml Abboject Administered 06/15/21 12:47 Dose 50 meq IV .STK-MED ONE Sodium Bicarbonate Confirm 06/16/21 02:46 Sodium Bicarbonate 50 Meq/50 Ml Abboject Administered 06/16/21 02:47 Dose 100 meq IV .STK-MED ONE Tramadol HCl 50 mg 06/15/21 22:27 06/15/21 22:38 Ultram 50 Mg PO 06/15/21 22:28 50 mg ONCE ONE Administration Tramadol HCl 50 mg 06/16/21 10:00 06/16/21 10:14 Ultram 50 Mg PO 07/16/21 09:59 50 mg BID BRAYDEN Administration Intake & Output (Last 24 hours) 06/17/21 06/18/21 06/19/21 06/20/21 11:59 11:59 11:59 11:59 Intake Total 6939 4449 3903 Output Total 1000 1550 2725 Balance 5939 2899 1178 Weight 66.2 kg 67.7 kg 69.1 kg Microbiology Results (Last 24 hours) 06/17/21 09:26 Urine, Indwelling Catheter Urine Culture - Final Escherichia Coli Laboratory Results (Last 24 hours) 06/19/21 06/19/21 06/19/21 07:21 04:45 04:45 WBC 14.3 H RBC 3.00 L Hgb 8.4 L Hct 27.7 L MCV 92.3 MCH 28.0 MCHC 30.3 L RDW 17.8 H Plt Count 262 MPV 8.9 Sodium 137 Potassium 5.0 Chloride 111 H Carbon Dioxide 15 L* Anion Gap 16.0 H BUN 51 H Creatinine 4.95 H Estimated GFR 9.3 Glucose 203 H POC Glucometer 139 H Calcium 7.7 L 06/18/21 06/18/21 21:07 17:38 WBC RBC Hgb Hct MCV MCH MCHC RDW Plt Count MPV Sodium Potassium Chloride Carbon Dioxide Anion Gap BUN Creatinine Estimated GFR Glucose POC Glucometer 169 H 136 H Calcium Orders (Last 24 hours) Category Date Time Status BMP AM.LAB Lab 06/19/21 04:45 Completed CBC AM.LAB Lab 06/19/21 04:45 Completed POCT GLUCOSE Stat Lab 06/18/21 11:43 Completed POCT GLUCOSE Stat Lab 06/18/21 17:38 Completed POCT GLUCOSE Stat Lab 06/18/21 21:07 Completed POCT GLUCOSE Stat Lab 06/19/21 07:21 Completed Albuterol 2.5 mg/3 ml Neb [Proventil 2.5 mg/3 ml Neb Med 06/18/21 12:05 Active ] 2.5 mg IH Q4H PRN PRN Guaifenesin/D-Methorphan Hb [Robitussin-Dm Syrup] Med 06/18/21 12:04 Active 10 ml PO Q4H PRN PRN Merrem 500mg IVP Q8H Med 06/19/21 12:17 Ordered Meropenem [Merrem 500Mg] 500 mg NaCl 0.9% 100 ml Mini-Bag Plus [Sodium Chloride 100ML MINI-BAG PLUS] 100 ml IV Q8HT Pulse Oximetry .spot check RT 06/18/21 13:20 Active Respiratory Therapy Assessment DAILY RT 06/18/21 13:20 Active Code(s): A41.51 - SEPSIS DUE TO ESCHERICHIA COLI [E. COLI] (2) Ketoacidosis due to diabetes mellitus Current Visit: Yes Status: Acute Qualifiers: Diabetes mellitus type: other specified (including PRETTY) Diabetes mellitus complication detail: without coma Qualified Code(s): E13.10 - Other specified diabetes mellitus with ketoacidosis without coma Code(s): E11.10 - TYPE 2 DIABETES MELLITUS WITH KETOACIDOSIS WITHOUT COMA (3) Acute on chronic renal insufficiency Current Visit: Yes Status: Acute Code(s): N28.9 - DISORDER OF KIDNEY AND URETER, UNSPECIFIED; N18.9 - CHRONIC KIDNEY DISEASE, UNSPECIFIED (4) Diabetes mellitus Current Visit: No Status: Chronic Code(s): E11.9 - TYPE 2 DIABETES MELLITUS WITHOUT COMPLICATIONS (5) Dehydration Current Visit: No Status: Resolved Code(s): E86.0 - DEHYDRATION
[2021-06-19] MEDS ORDERED: Tessalon Perles 100 MG PO PRN (12:25)
[2021-06-19] MEDS: MERREM 500MG 500 MG in Sodium Chloride 100ML MINI-BAG PLUS 100 ML IV SCH ×3 (13:34→22:00)
[2021-06-19] MEDS: HUMALOG SQ PRN (13:35)
[2021-06-19] MEDS: Lantus Insulin SQ SCH (22:01)
[2021-06-19] MEDS: ZOCOR 20MG PO SCH (22:01)
[2021-06-19] MEDS: Floxin Otic 5 ML OT SCH (22:03)
[2021-06-20] MEDS: MERREM 500MG 500 MG in Sodium Chloride 100ML MINI-BAG PLUS 100 ML IV SCH (06:34)
[2021-06-20] MEDS: TYLENOL 325 MG PO PRN (08:02)
[2021-06-20 09:58] LABS: Hematocrit 28.3 % (35-47); Hemoglobin 8.6 gm/dl (12.0-16.0); Mean Cell Volume 91.9 fl (78-100); Mean Corpuscular Hemoglobin 27.9 pg (26-32); Mean Corpuscular Hgb Concent. 30.4 g/dl (32-36); Mean Platelet Volume 8.6 fl (7.5-11.0); Platelet Count 246 K/mm3 (150-450); Red Blood Count 3.08 M/mm3 (4.1-5.4); Red Cell Distribution Width 17.9 % (11.5-14.0); White Blood Count 14.3 K/mm3 (4.0-10.5)
[2021-06-20 10:09] LABS: ALBUMIN 2.5 g/dL (3.5-5.0); ANION GAP 14.9 MEQ/L (5-15); BILIRUBIN,TOTAL 0.3 mg/dL (0.2-1.3); Calcium 7.7 mg/dL (8.4-10.2); Creatinine 1 4.11 mg/dL (0.52-1.04); EST GLOMERULAR FILTRATION RATE 11.5 ML/MIN; Potassium 4.9 mmol/L (3.5-5.1); Total Protein 6.1 g/dL (6.3-8.2)
[2021-06-20] MEDS: Sodium Chloride 0.9% 1000 ML 1,000 ML IV SCH (10:10)
[2021-06-20] MEDS: ENOXAPARIN SODIUM SQ SCH (10:10)
[2021-06-20] MEDS: Paxil 20 MG PO SCH (10:11)
[2021-06-20] MEDS: PATIENT OWN MEDICATION PO SCH (10:11)
[2021-06-20] MEDS: SYNTHROID 88 MCG PO SCH (10:11)
[2021-06-20] MEDS: Klor Con 10 MEQ PO SCH (10:11)
[2021-06-20] MEDS: Zestril 5 MG PO SCH (10:12)
[2021-06-20] MEDS: PROTONIX 40 MG IV IV SCH (10:12)
[2021-06-20 13:35] VITALS: BP 141/54; PULSE 82
--- NOTE | 2021-06-20 13:50 | PCM.DS ---
Discharge Summary Date of Admission: 06/15/21 15:14 Admitting Physician: ANA MANCILLA Consults: Consults on Case 06/18/21 08:15 Consult Nephrology ROUTINE Primary Care Provider: PATTIE HAQUE Allergies Allergies No Known Drug Allergies Allergy (Verified 06/15/21 10:38) Hospital Summary - Hospital Course Hospital Course: Chief Complaint Diagnosis ckd Allergies Allergy/AdvReac Type Severity Reaction Status Date / Time No Known Drug Allergies Allergy Verified 06/15/21 10:38 Vital Signs (Last 24 hours) Temp Pulse Resp BP Pulse Ox 06/20/21 12:00 97.4 F 82 24 141/54 99 06/20/21 08:50 80 16 98 06/20/21 08:00 97.1 F 87 13 141/76 99 06/20/21 04:12 97.6 F 81 18 140/63 98 06/19/21 23:54 97.9 F 83 18 127/65 99 06/19/21 21:00 84 20 100 06/19/21 19:31 97.7 F 87 17 133/74 100 06/19/21 16:00 96.2 F 80 14 133/71 98 Home Medications Medication Instructions Recorded Confirmed Last Taken Type Tramadol HCl/Acetaminophen 37.5 each PO BID 06/15/21 06/15/21 Unknown History [Tramadol-Acetaminophn 37.5-325] lisinopriL [Lisinopril] 5 mg PO DAILY 06/15/21 06/15/21 Unknown History Current Medications Generic Name Dose Route Start Last Admin Trade Name Freq PRN Reason Stop Dose Admin Acetaminophen 650 mg 06/15/21 15:26 06/20/21 08:02 Tylenol 325 Mg PO 07/15/21 15:25 650 mg Q4H PRN PRN Administration PAIN AND/OR FEVER Albuterol Sulfate 2.5 mg 06/18/21 12:05 Proventil 2.5 Mg/3 Ml Neb IH 07/18/21 12:04 Q4H PRN PRN SHORTNESS OF BREATH/WHEEZING Benzonatate 200 mg 06/19/21 12:25 06/19/21 13:37 Tessalon Perles 100 Mg PO 07/19/21 12:24 200 mg QID PRN PRN Administration COUGH Dextrose 25 ml 06/17/21 09:38 D50w 50 Ml Abboject IV 07/17/21 09:37 UD PRN Enoxaparin Sodium 40 mg 06/15/21 16:00 06/20/21 10:10 Enoxaparin Sodium SQ 07/15/21 15:59 40 mg DAILY BRAYDEN Administration Guaifenesin/Dextromethorphan 10 ml 06/18/21 12:04 06/19/21 02:24 Robitussin-Dm Syrup PO 07/18/21 12:03 10 ml Q4H PRN PRN Administration COUGH Sodium Chloride 1,000 mls @ 150 mls/hr 06/17/21 17:45 06/20/21 10:10 Sodium Chloride 0.9% 1000 Ml IV 07/17/21 17:44 150 mls/hr .Q6H40M BRAYDEN Administration Meropenem 500 mg/ Sodium 100 mls @ 200 mls/hr 06/20/21 18:00 Chloride IV 07/20/21 17:59 Q12H BRAYDEN Insulin Glargine 24 unit 06/16/21 22:00 06/19/21 22:01 Lantus Insulin SQ 07/16/21 21:59 24 unit HS BRAYDEN Administration Insulin Human Lispro 0 unit 06/17/21 11:40 06/19/21 13:35 Humalog SQ 07/17/21 11:39 3 unit UD PRN Administration HYPERGLYCEMIA Levothyroxine Sodium 88 mcg 06/16/21 10:00 06/20/21 10:11 Synthroid 88 Mcg PO 07/16/21 09:59 88 mcg DAILY BRAYDEN Administration Lisinopril 5 mg 06/16/21 10:00 06/20/21 10:12 Zestril 5 Mg PO 07/16/21 09:59 5 mg DAILY BRAYDEN Administration Ofloxacin 0 ml 06/17/21 22:00 06/19/21 22:03 Floxin Otic 5 Ml OT 07/17/21 21:59 10 ml HS BRAYDEN Administration Ondansetron HCl 4 mg 06/15/21 15:26 06/18/21 20:10 Zofran 4 Mg/2 Ml Vial IV 07/15/21 15:25 4 mg Q6H PRN PRN Administration NAUSEA/VOMITING Pantoprazole Sodium 40 mg 06/15/21 16:00 06/20/21 10:12 Protonix 40 Mg Iv IV 07/15/21 15:59 40 mg DAILY BRAYDEN Administration Paroxetine HCl 20 mg 06/16/21 10:00 06/20/21 10:11 Paxil 20 Mg PO 07/16/21 09:59 20 mg DAILY BRAYDEN Administration Patient Own Med ( 0 each 06/16/21 12:30 06/20/21 10:11 Ultracet) PO 07/16/21 12:29 1 each BID BRAYDEN Administration Potassium Chloride 20 meq 06/16/21 10:00 06/20/21 10:11 Klor Con 10 Meq PO 07/16/21 09:59 20 meq BID BRAYDEN Administration Simvastatin 40 mg 06/16/21 22:00 06/19/21 22:01 Zocor 20mg PO 07/16/21 21:59 40 mg HS BRAYDEN Administration Discontinued Medications Generic Name Dose Route Start Last Admin Trade Name Freq PRN Reason Stop Dose Admin Acetaminophen 325 mg 06/16/21 10:00 06/16/21 10:16 Tylenol 325 Mg PO 07/16/21 09:59 325 mg BID BRAYDEN Administration Albuterol/Ipratropium 3 ml 06/15/21 10:48 06/15/21 11:28 Duoneb 0.5-3 Mg/3 Ml Neb IH 06/15/21 10:49 3 ml STAT ONE Administration Albuterol/Ipratropium Confirm 06/15/21 11:14 Duoneb 0.5-3 Mg/3 Ml Neb Administered 06/15/21 11:15 Dose 3 ml IH .STK-MED ONE Calcium Gluconate 1,000 mg 06/15/21 12:26 06/15/21 12:50 Calcium Gluconate 10% 1000 Mg IV 06/15/21 12:27 1,000 mg STAT ONE Administration Calcium Gluconate Confirm 06/15/21 12:46 Calcium Gluconate 10% 1000 Mg Administered 06/15/21 12:47 Dose 1,000 mg IV .STK-MED ONE Dextrose Confirm 06/15/21 23:49 D50w 50 Ml Abboject Administered 06/15/21 23:50 Dose 50 ml IV .STK-MED ONE Dextrose 25 ml 06/15/21 23:45 06/16/21 05:09 D50w 50ml Vial IV 07/15/21 23:44 25 ml UD BRAYDEN Administration Dextrose Confirm 06/16/21 01:05 D50w 50 Ml Abboject Administered 06/16/21 01:06 Dose 50 ml IV .STK-MED ONE Dextrose Confirm 06/16/21 05:05 D50w 50 Ml Abboject Administered 06/16/21 05:06 Dose 50 ml IV .STK-MED ONE Dextrose 25 ml 06/16/21 07:15 06/16/21 19:29 D50w 50ml Vial IV 07/15/21 23:44 25 ml UD PRN Administration Dextrose Confirm 06/16/21 19:21 D50w 50 Ml Abboject Administered 06/16/21 19:22 Dose 100 ml IV .STK-MED ONE Sodium Chloride 1,000 mls @ 999 mls/hr 06/15/21 11:59 06/15/21 13:16 Sodium Chloride 0.9% 1000 Ml IV 06/15/21 12:59 Infused .Q1H1M STA Infusion Sodium Chloride Confirm 06/15/21 12:00 Sodium Chloride 0.9% 1000 Ml Administered 06/15/21 12:01 Dose 1,000 mls @ ud .ROUTE .STK-MED ONE Ceftriaxone Sodium/Dextrose 1 g in 50 mls @ 100 mls/hr 06/15/21 12:24 06/15/21 13:35 Rocephin 1 Gm-D5w 50 Ml Bag IV 06/15/21 12:53 Infused STAT STA Infusion Sodium Chloride 1,000 mls @ 999 mls/hr 06/15/21 12:25 06/15/21 14:10 Sodium Chloride 0.9% 1000 Ml IV 06/15/21 13:25 Infused .Q1H1M STA Infusion Sodium Chloride Confirm 06/15/21 12:46 Sodium Chloride 0.9% 1000 Ml Administered 06/15/21 12:47 Dose 1,000 mls @ ud .ROUTE .STK-MED ONE Ceftriaxone Sodium/Dextrose Confirm 06/15/21 12:46 Rocephin 1 Gm-D5w 50 Ml Bag Administered 06/15/21 12:47 Dose 1 g in 50 mls @ ud IV .STK-MED ONE Sodium Chloride 1,000 mls @ 200 mls/hr 06/15/21 15:26 06/15/21 23:04 Sodium Chloride 0.9% 1000 Ml IV 06/16/21 01:25 Not Given .Q5H BRAYDEN Ceftriaxone Sodium/Dextrose 1 g in 50 mls @ 100 mls/hr 06/15/21 16:00 Rocephin 1 Gm-D5w 50 Ml Bag IV 06/18/21 15:59 DAILY BRAYDEN Ceftriaxone Sodium/Dextrose 1 g in 50 mls @ 100 mls/hr 06/16/21 10:00 06/17/21 09:17 Rocephin 1 Gm-D5w 50 Ml Bag IV 06/19/21 09:59 100 mls/hr DAILY BRAYDEN Administration Sodium Chloride 1,000 mls @ 150 mls/hr 06/15/21 01:00 06/16/21 01:14 Sodium Chloride 0.9% 1000 Ml IV 07/15/21 00:59 200 mls/hr .Q6H40M BRAYDEN Administration Insulin Human Regular 100 unit 100 mls @ 3 mls/hr 06/15/21 16:30 06/18/21 16:42 / Sodium Chloride IV 07/15/21 16:29 Not Given .Q24H BRAYDEN Dextrose/Sodium Chloride 1,000 mls @ 150 mls/hr 06/16/21 02:45 06/16/21 08:29 Dextrose 5% -0.45 Nacl 1000 Ml IV 07/16/21 02:44 200 mls/hr .Q6H40M BRAYDEN Administration Sodium Bicarbonate 100 meq/ 1,000 mls @ 250 mls/hr 06/16/21 02:45 06/18/21 16:42 Sodium Chloride IV 07/16/21 02:44 Not Given .Q4H BRAYDEN Ceftriaxone Sodium/Dextrose 1 g in 50 mls @ 100 mls/hr 06/16/21 10:00 Rocephin 1 Gm-D5w 50 Ml Bag IV 06/19/21 09:59 Q24H10 BRAYDEN Potassium Chloride/Dextrose/Sod Cl 1,000 mls @ 150 mls/hr 06/16/21 13:40 06/18/21 02:45 D5w/0.45ns W/ 20meq Kcl 1000 Ml IV 07/16/21 13:39 Infused .Q6H40M BRAYDEN Infusion Dextrose/Sodium Chloride 1,000 mls @ 150 mls/hr 06/17/21 16:00 06/18/21 02:44 Dextrose 5% -0.45 Nacl 1000 Ml IV 07/17/21 15:59 Not Given .Q6H40M BRAYDEN Piperacillin Sod/Tazobactam 100 mls @ 200 mls/hr 06/17/21 14:00 06/19/21 15:14 Sod 2.25 gm/ Sodium Chloride IV 07/17/21 13:59 Not Given Q8HT BRAYDEN Meropenem 500 mg/ Sodium 100 mls @ 200 mls/hr 06/19/21 12:17 06/20/21 06:34 Chloride IV 07/19/21 12:16 200 mls/hr Q8HT BRAYDEN Administration Insulin Human Lispro 10 unit 06/16/21 11:30 06/16/21 16:36 Humalog SQ 07/16/21 11:29 10 unit AC BRAYDEN Administration Non-Formulary Medication 37.5 each 06/16/21 10:00 Tramadol Hcl/Acetaminophen [Tramadol-Acetaminophn 37.5-325] PO 07/16/21 09:59 BID BRAYDEN Non-Formulary Medication 1 each 06/17/21 11:42 06/17/21 15:08 Pharmacy Dosing Request 06/17/21 11:43 Not Given STAT ONE Ondansetron HCl 4 mg 06/15/21 11:59 06/15/21 12:01 Zofran 4 Mg/2 Ml Vial IV 06/15/21 12:00 4 mg STAT ONE Administration Ondansetron HCl Confirm 06/15/21 12:00 Zofran 4 Mg/2 Ml Vial Administered 06/15/21 12:01 Dose 4 mg .ROUTE .STK-MED ONE Patiromer 8.4 gm 06/15/21 12:25 06/15/21 12:51 Veltassa PO 06/15/21 12:26 8.4 gm STAT STA Administration Patiromer Confirm 06/15/21 12:46 Veltassa Administered 06/15/21 12:47 Dose 8.4 gm PO .STK-MED ONE Sodium Bicarbonate 50 meq 06/15/21 12:26 06/15/21 12:50 Sodium Bicarbonate 50 Meq/50 Ml Abboject IV 06/15/21 12:27 50 meq STAT ONE Administration Sodium Bicarbonate Confirm 06/15/21 12:46 Sodium Bicarbonate 50 Meq/50 Ml Abboject Administered 06/15/21 12:47 Dose 50 meq IV .STK-MED ONE Sodium Bicarbonate Confirm 06/16/21 02:46 Sodium Bicarbonate 50 Meq/50 Ml Abboject Administered 06/16/21 02:47 Dose 100 meq IV .STK-MED ONE Tramadol HCl 50 mg 06/15/21 22:27 06/15/21 22:38 Ultram 50 Mg PO 06/15/21 22:28 50 mg ONCE ONE Administration Tramadol HCl 50 mg 06/16/21 10:00 06/16/21 10:14 Ultram 50 Mg PO 07/16/21 09:59 50 mg BID BRAYDEN Administration Intake & Output (Last 24 hours) 06/18/21 06/19/21 06/20/21 06/21/21 11:59 11:59 11:59 11:59 Intake Total 4449 3903 4282 0 Output Total 1550 3475 2825 1000 Balance 2899 428 1457 -1000 Weight 67.7 kg 69.1 kg 76.5 kg Microbiology Results (Last 24 hours) 06/15/21 11:30 Blood Blood Culture Gram Stain - Final Not Reportable 06/15/21 11:30 Blood Blood Culture - Final NO GROWTH 06/15/21 11:25 Blood Blood Culture Gram Stain - Final Not Reportable 06/15/21 11:25 Blood Blood Culture - Final NO GROWTH 06/17/21 09:26 Urine, Indwelling Catheter Urine Culture - Final Escherichia Coli Laboratory Results (Last 24 hours) 06/20/21 06/20/21 06/20/21 12:01 09:50 09:50 WBC 14.3 H RBC 3.08 L Hgb 8.6 L Hct 28.3 L MCV 91.9 MCH 27.9 MCHC 30.4 L RDW 17.9 H Plt Count 246 MPV 8.6 Sodium 139 Potassium 4.9 Chloride 115 H Carbon Dioxide 14 L* Anion Gap 14.9 BUN 38 H Creatinine 4.11 H Estimated GFR 11.5 Glucose 106 POC Glucometer 139 H Calcium 7.7 L Total Bilirubin 0.30 AST 38 H ALT 16 Alkaline Phosphatase 85 Serum Total Protein 6.1 L Albumin 2.5 L 06/20/21 06/19/21 06/19/21 08:13 20:37 17:20 WBC RBC Hgb Hct MCV MCH MCHC RDW Plt Count MPV Sodium Potassium Chloride Carbon Dioxide Anion Gap BUN Creatinine Estimated GFR Glucose POC Glucometer 59 L 133 H 93 Calcium Total Bilirubin AST ALT Alkaline Phosphatase Serum Total Protein Albumin Orders (Last 24 hours) Category Date Time Status Discharge Routine Discharge 06/20/21 Ordered Discharge/Telephone Order Routine Discharge 06/20/21 Active CBC Urgent Lab 06/20/21 09:50 Completed CMP Urgent Lab 06/20/21 09:50 Completed POCT GLUCOSE Stat Lab 06/19/21 13:02 Completed POCT GLUCOSE Stat Lab 06/19/21 17:20 Completed POCT GLUCOSE Stat Lab 06/19/21 20:37 Completed POCT GLUCOSE Stat Lab 06/20/21 08:13 Completed POCT GLUCOSE Stat Lab 06/20/21 12:01 Completed Meropenem [Merrem 500Mg] 500 mg Med 06/20/21 18:00 Active NaCl 0.9% 100 ml Mini-Bag Plus [Sodium Chloride 100ML MINI-BAG PLUS] 100 ml IV Q12H Patient Care Notes (Last 24 hours) 06/20/21 10:16 Case Management Note by Alisa Hardy S/W LARS AT [facility] BED CONTR[facility]- THEY HAVE PATIENT ON THEIR LIST BUT DO NOT HAVE A BED AT THIS TIME. THEY WILL CHECK WITH THEIR SUPERVISORS TO SEE IF ANY BEDS WILL BE OPEN TODAY BUT THEY ARE ALSO BOARDING PATIENTS IN THEIR ER. THEY WILL BE IN CONTACT Initialized on 06/20/21 10:16 - END OF NOTE 06/20/21 09:44 Case Management Note by Alisa Hardy PER PRIMARY NURSE- PATIENT WAITING ON BED AT [facility] AT THIS TIME. WILL DEFER ANY FURTHER CASE MANAGEMENT ASSESS AT THIS TIME Initialized on 06/20/21 09:44 - END OF NOTE 06/20/21 09:17 Pharmacy Note by Yassine Ott Merrem dose reduced to q12h per renal dosing policy. Initialized on 06/20/21 09:17 - END OF NOTE - Vitals & Intake/Output Vital Signs: Vital Signs Temperature 97.4 F 06/20/21 12:00 Pulse Rate 82 06/20/21 12:00 Respiratory Rate 24 06/20/21 12:00 Blood Pressure 141/54 06/20/21 12:00 O2 Sat by Pulse Oximetry 99 06/20/21 12:00 Intake & Output: Intake & Output 06/18/21 06/19/21 06/20/21 06/21/21 11:59 11:59 11:59 11:59 Intake Total 4449 3903 4282 0 Output Total 1550 3475 2825 1000 Balance 2899 428 1457 -1000 Weight 67.7 kg 69.1 kg 76.5 kg - Lab Result Diagrams: 06/20/21 09:50 06/20/21 09:50 Lab Results-Last 24 Hrs: Lab Results-Last 24 Hours 06/19/21 06/19/21 06/20/21 Range/Units 17:20 20:37 08:13 WBC (4.0-10.5) K/mm3 RBC (4.1-5.4) M/mm3 Hgb (12.0-16.0) gm/dl Hct (35-47) % MCV (78-100) fl MCH (26-32) pg MCHC (32-36) g/dl RDW (11.5-14.0) % Plt Count (150-450) K/mm3 MPV (7.5-11.0) fl Sodium (137-145) mmol/L Potassium (3.5-5.1) mmol/L Chloride (98-107) mmol/L Carbon Dioxide (22-30) mmol/L Anion Gap (5-15) MEQ/L BUN (7-17) mg/dL Creatinine (0.52-1.04) mg/dL Estimated GFR ML/MIN Glucose (74-106) mg/dL POC Glucometer 93 133 H 59 L (74 to 106) mg/dL Calcium (8.4-10.2) mg/dL Total Bilirubin (0.2-1.3) mg/dL AST (14-36) U/L ALT (0-35) U/L Alkaline Phosphatase (38-126) U/L Serum Total Protein (6.3-8.2) g/dL Albumin (3.5-5.0) g/dL 06/20/21 06/20/21 06/20/21 Range/Units 09:50 09:50 12:01 WBC 14.3 H (4.0-10.5) K/mm3 RBC 3.08 L (4.1-5.4) M/mm3 Hgb 8.6 L (12.0-16.0) gm/dl Hct 28.3 L (35-47) % MCV 91.9 (78-100) fl MCH 27.9 (26-32) pg MCHC 30.4 L (32-36) g/dl RDW 17.9 H (11.5-14.0) % Plt Count 246 (150-450) K/mm3 MPV 8.6 (7.5-11.0) fl Sodium 139 (137-145) mmol/L Potassium 4.9 (3.5-5.1) mmol/L Chloride 115 H (98-107) mmol/L Carbon Dioxide 14 L* (22-30) mmol/L Anion Gap 14.9 (5-15) MEQ/L BUN 38 H (7-17) mg/dL Creatinine 4.11 H (0.52-1.04) mg/dL Estimated GFR 11.5 ML/MIN Glucose 106 (74-106) mg/dL POC Glucometer 139 H (74 to 106) mg/dL Calcium 7.7 L (8.4-10.2) mg/dL Total Bilirubin 0.30 (0.2-1.3) mg/dL AST 38 H (14-36) U/L ALT 16 (0-35) U/L Alkaline Phosphatase 85 (38-126) U/L Serum Total Protein 6.1 L (6.3-8.2) g/dL Albumin 2.5 L (3.5-5.0) g/dL Micro Results-Entire Visit: Microbiology 06/15/21 11:30 Blood Culture Gram Stain - Final Blood Not Reportable Blood Culture - Final NO GROWTH 06/15/21 11:25 Blood Culture Gram Stain - Final Blood Not Reportable Blood Culture - Final NO GROWTH 06/17/21 09:26 Urine Culture - Final Urine, Indwelling Catheter Escherichia Coli 06/15/21 10:59 Urine Culture - Final Clean Catch Midstream Escherichia Coli Accuchecks Date 06/19/21 - Procedures and Test Procedures and Tests throughout Hospitalization: Therapy Orders & Screens 06/15/21 11:37 Respiratory Therapy Assessment DAILY Comment: 06/18/21 13:20 Respiratory Therapy Assessment DAILY Comment: Diagnosis: ckd Discharge Exam General Appearance: no apparent distress, alert Neurologic Exam: alert, oriented x 3, cooperative, normal mood/affect, nml cerebellar function, sensation nml, No motor deficits Eye Exam: PERRL, EOMI, eyes nml inspection Ears, Nose, Throat Exam: normal ENT inspection, pharynx normal, moist mucous membranes Neck Exam: normal inspection, non-tender, supple, full range of motion Respiratory Exam: normal breath sounds, lungs clear, No respiratory distress Cardiovascular Exam: regular rate/rhythm, normal heart sounds Gastrointestinal/Abdomen Exam: soft, No tenderness, No mass Pelvic Exam: deferred Rectal Exam: deferred Back Exam: normal inspection, normal range of motion, No CVA tenderness, No vertebral tenderness Extremity Exam: normal inspection, normal range of motion Skin Exam: normal color, warm, dry Wound Assessment: Skin/Wound Assessment Wound/Incision Assessment Start: 06/16/21 08:42 Text: Status: Active Freq: Q6H Protocol: Document 06/20/21 08:00 JENNIFER (Rec: 06/20/21 08:33 JENNIFER [id number]) Wound/Incision Assessment Sacrum Wound Assessment Shift Assessment Wound Type FISSURE Wound Stage Non Pressure Wound Surrounding Tissue [place] Comment BARRIER CREAM APPLIED Final Diagnosis/Problem List - Final Discharge Diagnosis/Problem (1) Sepsis due to Escherichia coli Current Visit: Yes Status: Acute Priority: High Assessment & Plan: Last Vital Signs Temp 97.4 F 06/20/21 12:00 Pulse 82 06/20/21 12:00 Resp 24 06/20/21 12:00 BP 141/54 06/20/21 12:00 Pulse Ox 99 06/20/21 12:00 Allergies No Known Drug Allergies Allergy (Verified 06/15/21 10:38) Active Medications Acetaminophen (Tylenol 325 Mg) 650 mg PO Q4H PRN PRN PRN Reason: PAIN AND/OR FEVER Stop: 07/15/21 15:25 Last Admin: 06/20/21 08:02 Dose: 650 mg Documented by: Albuterol Sulfate (Proventil 2.5 Mg/3 Ml Neb) 2.5 mg IH Q4H PRN PRN PRN Reason: SHORTNESS OF BREATH/WHEEZING Stop: 07/18/21 12:04 Benzonatate (Tessalon Perles 100 Mg) 200 mg PO QID PRN PRN PRN Reason: COUGH Stop: 07/19/21 12:24 Last Admin: 06/19/21 13:37 Dose: 200 mg Documented by: Dextrose (D50w 50 Ml Abboject) 25 ml IV UD PRN Stop: 07/17/21 09:37 Enoxaparin Sodium (Enoxaparin Sodium) 40 mg SQ DAILY BRAYDEN Stop: 07/15/21 15:59 Last Admin: 06/20/21 10:10 Dose: 40 mg Documented by: Guaifenesin/Dextromethorphan (Robitussin-Dm Syrup) 10 ml PO Q4H PRN PRN PRN Reason: COUGH Stop: 07/18/21 12:03 Last Admin: 06/19/21 02:24 Dose: 10 ml Documented by: Sodium Chloride (Sodium Chloride 0.9% 1000 Ml) 1,000 mls @ 150 mls/hr IV .Q6H40M [facility] Stop: 07/17/21 17:44 Last Admin: 06/20/21 10:10 Dose: 150 mls/hr Documented by: Meropenem 500 mg/ Sodium (Chloride) 100 mls @ 200 mls/hr IV Q12H [facility] Stop: 07/20/21 17:59 Insulin Glargine (Lantus Insulin) 24 unit SQ HS [facility] Stop: 07/16/21 21:59 Last Admin: 06/19/21 22:01 Dose: 24 unit Documented by: Insulin Human Lispro (Humalog) 0 unit SQ UD PRN PRN Reason: HYPERGLYCEMIA Stop: 07/17/21 11:39 Last Admin: 06/19/21 13:35 Dose: 3 unit Documented by: Levothyroxine Sodium (Synthroid 88 Mcg) 88 mcg PO DAILY [facility] Stop: 07/16/21 09:59 Last Admin: 06/20/21 10:11 Dose: 88 mcg Documented by: Lisinopril (Zestril 5 Mg) 5 mg PO DAILY [facility] Stop: 07/16/21 09:59 Last Admin: 06/20/21 10:12 Dose: 5 mg Documented by: Ofloxacin (Floxin Otic 5 Ml) 0 ml OT HS [facility] Stop: 07/17/21 21:59 Last Admin: 06/19/21 22:03 Dose: 10 ml Documented by: Ondansetron HCl (Zofran 4 Mg/2 Ml Vial) 4 mg IV Q6H PRN PRN PRN Reason: NAUSEA/VOMITING Stop: 07/15/21 15:25 Last Admin: 06/18/21 20:10 Dose: 4 mg Documented by: Pantoprazole Sodium (Protonix 40 Mg Iv) 40 mg IV DAILY BRAYDEN Stop: 07/15/21 15:59 Last Admin: 06/20/21 10:12 Dose: 40 mg Documented by: Paroxetine HCl (Paxil 20 Mg) 20 mg PO DAILY BRAYDEN Stop: 07/16/21 09:59 Last Admin: 06/20/21 10:11 Dose: 20 mg Documented by: Patient Own Med ( (Ultracet)) 0 each PO BID BRAYDEN Stop: 07/16/21 12:29 Last Admin: 06/20/21 10:11 Dose: 1 each Documented by: Potassium Chloride (Klor Con 10 Meq) 20 meq PO BID BRAYDEN Stop: 07/16/21 09:59 Last Admin: 06/20/21 10:11 Dose: 20 meq Documented by: Simvastatin (Zocor 20mg) 40 mg PO HS BRAYDEN Stop: 07/16/21 21:59 Last Admin: 06/19/21 22:01 Dose: 40 mg Documented by: Intake & Output 06/20/21 06/21/21 11:59 11:59 Intake Total 4282 0 Output Total 2825 1000 Balance 1457 -1000 Weight 76.5 kg Orders 06/20/21 Discharge Routine Discharge/Telephone Order Routine 06/20/21 18:00 Meropenem [Merrem 500Mg] 500 mg NaCl 0.9% 100 ml Mini-Bag Plus [Sodium Chloride 100ML MINI-BAG PLUS] 100 ml IV Q12H Lab Tests 06/19/21 06/19/21 06/20/21 17:20 20:37 08:13 WBC RBC Hgb Hct MCV MCH MCHC RDW Plt Count MPV Sodium Potassium Chloride Carbon Dioxide Anion Gap BUN Creatinine Estimated GFR Glucose POC Glucometer 93 133 H 59 L Calcium Total Bilirubin AST ALT Alkaline Phosphatase Serum Total Protein Albumin 06/20/21 06/20/21 06/20/21 09:50 09:50 12:01 WBC 14.3 H RBC 3.08 L Hgb 8.6 L Hct 28.3 L MCV 91.9 MCH 27.9 MCHC 30.4 L RDW 17.9 H Plt Count 246 MPV 8.6 Sodium 139 Potassium 4.9 Chloride 115 H Carbon Dioxide 14 L* Anion Gap 14.9 BUN 38 H Creatinine 4.11 H Estimated GFR 11.5 Glucose 106 POC Glucometer 139 H Calcium 7.7 L Total Bilirubin 0.30 AST 38 H ALT 16 Alkaline Phosphatase 85 Serum Total Protein 6.1 L Albumin 2.5 L Microbiology 06/15/21 11:30 Blood Blood Culture Gram Stain - Final Not Reportable 06/15/21 11:30 Blood Blood Culture - Final NO GROWTH 06/15/21 11:25 Blood Blood Culture Gram Stain - Final Not Reportable 06/15/21 11:25 Blood Blood Culture - Final NO GROWTH 06/17/21 09:26 Urine, Indwelling Catheter Urine Culture - Final Escherichia Coli Patient is transferred to [facility] Code(s): A41.51 - SEPSIS DUE TO ESCHERICHIA COLI [E. COLI] (2) Ketoacidosis due to diabetes mellitus Current Visit: Yes Status: Acute Priority: High Code(s): E11.10 - TYPE 2 DIABETES MELLITUS WITH KETOACIDOSIS WITHOUT COMA (3) Acute on chronic renal insufficiency Current Visit: Yes Status: Acute Code(s): N28.9 - DISORDER OF KIDNEY AND URETER, UNSPECIFIED; N18.9 - CHRONIC KIDNEY DISEASE, UNSPECIFIED (4) Diabetes mellitus Current Visit: No Status: Chronic Code(s): E11.9 - TYPE 2 DIABETES MELLITUS WITHOUT COMPLICATIONS (5) Dehydration Current Visit: Yes Status: Resolved Code(s): E86.0 - DEHYDRATION - Discharge Discharge Date: 06/20/21 Disposition: DC TO [facility] Condition: Stable Prescriptions: No Action Rosuvastatin Calcium 20 mg PO DAILY Potassium Chloride 20 meq PO BID Paroxetine HCl [Paxil] 20 mg PO DAILY Levothyroxine Sodium [Euthyrox] 88 mcg PO DAILY Insulin Lispro [Humalog] 10 unit SQ AC Insulin Glargine,Hum.rec.anlog [Toujeo Max Solostar] 30 unit SQ HS Tramadol HCl/Acetaminophen [Tramadol-Acetaminophn 37.5-325] 37.5 each PO BID lisinopriL [Lisinopril] 5 mg PO DAILY Follow up with: SHABNAM,PATTIE, MD [Primary Care Provider] -
[2021-06-20] MEDS ORDERED: MERREM 500MG 500 MG in Sodium Chloride 100ML MINI-BAG PLUS 100 ML IV SCH (18:00)
[2021-06-21 08:01] VITALS: O2SAT 98
== END 2021-06-20 14:40 | disposition home or self-care (01) | DRG 871 ==
LOC: ED 10:16 → OBSVTOIN 15:14 → UNDOADMOB 15:14 → MED SURG 15:14 → INTOOBSV 15:14 → ICU 16:20 → MED SURG 16:20
PROVIDERS: ADMIT Family Medicine; ATTEND General Practice
DX: A41.51 Sepsis due to Escherichia coli [E. coli] (principal); E11.10 Type 2 diabetes mellitus with ketoacidosis without coma; E11.22 Type 2 diabetes mellitus with diabetic chronic kidney disease; I12.9 Hypertensive chronic kidney disease with stage 1 through stage 4 chronic kidney disease, or unspecified chronic kidney disease; N39.0 Urinary tract infection, site not specified; N18.9 Chronic kidney disease, unspecified; R53.1 Weakness; E86.0 Dehydration; E87.5 Hyperkalemia; E03.9 Hypothyroidism, unspecified; R51.9 Headache, unspecified; Z79.4 Long term (current) use of insulin; Z79.899 Other long term (current) drug therapy; H92.11 Otorrhea, right ear; Z20.822 Contact with and (suspected) exposure to COVID-19
CPT/HCPCS: 36000; 36415; 36600; 71045; 80048; 80053; 81001; 82375; 82803; 82947; 83036; 83605; 83735; 83880; 84484; 85025; 85027; 87040; 87077; 87086; 87186; 93005; 93041; 94640; 94760; 94762; 96360; 96361; 96365; 96374; 96375; 99285; 99291; U0003; J0610; J0696; J1650; J1817; J2405; J2543; A9270-GY

== ENCOUNTER 2022-08-15 10:45 | Observation (INO) | payer MEDICARE ==
[2022-08-15] MEDS ORDERED: Sodium Chloride 0.9% 1000 ML 1,000 ML IV STA ×2 (11:14→12:05)
[2022-08-15] MEDS ORDERED: Zofran 4 MG/2 ML VIAL IV ONE (11:14)
[2022-08-15] MEDS ORDERED: Sodium Chloride 0.9% 1000 ML 1,000 ML ONE ×2 (11:23→12:29)
[2022-08-15] MEDS ORDERED: Zofran 4 MG/2 ML VIAL ONE (11:23)
[2022-08-15 11:29] LABS: VBG CARBOXYHEMOGLOBIN 2.5 % T HGB (0.0-6.9); VBG HCO3- 9.2 meq/L (22-28); VBG HEMOGLOBIN 12.3; VBG O2 SATURATION 82.3 (95-100); VBG POTASSIUM 5.8 (3.5-5.1)
[2022-08-15 11:30] LABS: VBG pH 7.11 (7.32-7.42)
[2022-08-15 11:34] LABS: Absolute Neutrophil Ct (ANC) 18.44 x10^3/uL (1.4-6.9); Basophil (Absolute #) 0.05 x10^3/uL (0-0.4); Eosinophil (Absolute #) 0.01 x10^3/uL (0-0.5); Hematocrit 39.6 % (35-47); Hemoglobin 11.6 g/dL (12.0-16.0); Lymphocytes % 7.5 % (24.0-44.0); Mean Cell Volume 104.8 fL (78-100); Mean Corpuscular Hemoglobin 30.7 pg (26-32); Mean Corpuscular Hgb Concent. 29.3 g/dL (32-36); Mean Platelet Volume 11.5 fL (7.5-11.0); Monocyte (Absolute #) 1.17 x10^3/uL (0.0-1.3); Monocytes % 5.5 % (0.0-12.0); Platelet Count 246 x10^3/uL (150-450); Red Blood Count 3.78 x10^6/uL (4.1-5.4); Red Cell Distribution Width 12.8 % (11.5-14.0); White Blood Count 21.4 x10^3/uL (4.0-10.5)
[2022-08-15 11:47] LABS: ALBUMIN 4.5 g/dL (3.5-5.0); ANION GAP 38.5 MEQ/L (5-15); BILIRUBIN,TOTAL 1.3 mg/dL (0.2-1.3); Calcium 9.2 mg/dL (8.4-10.2); Creatinine 1 2.34 mg/dL (0.52-1.04); EST GLOMERULAR FILTRATION RATE 21.9 ML/MIN; MAGNESIUM 1.8 mg/dL (1.6-2.3); Potassium 5.7 mmol/L (3.5-5.1); Total Protein 7.5 g/dL (6.3-8.2)
--- NOTE | 2022-08-15 11:59 | XRAY ---
Indication: Vomiting. Multiple contiguous axial images obtained through the abdomen and pelvis without contrast. Comparison: October 09, 2014. Lower chest and upper abdomen degraded by respiration artifact. Lung bases again demonstrates right costophrenic angle calcified granuloma. No focal infiltrate or effusion. Heart not enlarged. Enlarging moderate size hiatal hernia. Visualized distal esophagus demonstrates new circumferential wall thickening favoring reflux esophagitis. Noncontrasted stomach and bowel loops appear nonobstructed. Appendix not visualized. There is now moderate diffuse scattered colonic fecal debris throughout including rectum. Again tiny hepatic/splenic calcified granulomas. Interval cholecystectomy. No free fluid/air. Remaining liver, pancreas, spleen, adrenal glands, kidneys, ureters, bladder, and uterus appear unremarkable for noncontrast exam. There remains mild scattered aortoiliac calcifications without AAA. Osseous structures intact again with minimal/mild degenerative changes throughout the spine. No ventral or inguinal hernias. Impression: 1. Respiration artifact. 2. Enlarging moderate size hiatal hernia. Also distal esophageal circumferential wall thickening favoring reflux esophagitis. 3. New moderate diffuse fecal stasis. 4. Again chronic findings including arteriosclerotic disease, chronic bony findings, and old granulomatous disease.
[2022-08-15] MEDS ORDERED: HUMULIN R IV ONE (12:05)
[2022-08-15] MEDS ORDERED: PROTONIX 40 MG IV IV ONE ×2 (12:21→12:28)
[2022-08-15] MEDS ORDERED: HUMULIN R ONE (12:22)
[2022-08-15] MEDS: HUMULIN R 100 UNIT in Sodium Chloride 0.9% 100 ML IV PRN ×2 (12:37→23:51)
--- NOTE | 2022-08-15 12:56 | ERPHSYRPT ---
- History of Present Illness Time Seen by Provider: 08/15/22 10:46 Source: patient, family Exam Limitations: no limitations Patient Subjective Stated Complaint: C/O SOB that started this morning. Daughter at bedside and states patient is acting right. Patient and daughter state that blood glucose machine reading was "high" at home prior to coming to the ED. Patient ook 35 units of Humalog approx 40 minutes ago. Triage Nursing Assessment: Patient ambulated back to ED with assistance of one staff and daughter. Patient is a bit off balance but she is able to bear weight to BLE. Patient not SOB at this time. Hospital Glucometer also reading "high" at this time. Physician History: 67 years old with history of breast cancer left mastectomy long time ago completed chemotherapy, brittle diabetic presented in the ER with multiple episodes of nonprojectile, nonbilious vomiting since yesterday, unable to hold anything down along with increased urination and thirst. Patient feels weak fatigued tired and no energy. Complaining of generalized body aches. No fever or chills reported. Patient checked her blood sugar prior to arrival and it was reading high. Denies any abdominal pain or chest pain. Patient reports she felt short of breath on presentation in the ER for a few minutes and does not have any difficulty breathing or chest pain at present. Timing/Duration: yesterday, gradual onset, worse Severity: moderate Modifying Factors: Improves With: nothing Associated Symptoms: nausea, vomiting, shortness of breath, loss of appetite, malaise, weakness, No abdominal pain, No diaphoresis, No cough, No chills, No chest pain, No fever Allergies/Adverse Reactions: Influenza Virus Vaccines Adverse Reaction (Verified 08/15/22 14:55) Home Medications: Insulin Lispro [Humalog] 14 unit SQ AC 03/31/21 [History] PARoxetine HCL [Paxil] 20 mg PO DAILY 03/31/21 [History] Potassium Chloride 20 meq PO BID 03/31/21 [History] Tramadol HCl/Acetaminophen [Tramadol-Acetaminophn 37.5-325] 37.5 each PO Q8H PRN 06/15/21 [History] Folic Acid 1 mg PO HS 06/27/21 [History] Clopidogrel Bisulfate [Clopidogrel] 75 mg PO DAILY 08/15/22 [History] Insulin Glargine,Hum.rec.anlog [Zahra Martin] 32 units SQ HS MDD 50 08/15/22 [History] Iron 1 tab PO HS 08/15/22 [History] Metoprolol Tartrate 50 mg [Lopressor 50 MG] 50 mg PO DAILY 08/15/22 [History] OLANZapine [Olanzapine] 2.5 mg PO DAILY 08/15/22 [History] Hx Tetanus, Diphtheria Vaccination/Date Given: Yes Hx Influenza Vaccination/Date Given: No Hx Pneumococcal Vaccination/Date Given: Yes (2019) Immunizations Up to Date: Yes Travel Risk - International Travel Have you traveled outside of the country in past 3 weeks: No - Coronavirus Screening Are you exhibiting any of the following symptoms?: Yes Symptoms: Shortness of Breath Close contact with a COVID-19 positive Pt in past 14-21 Days: No - Vaccine Status Have you recieved a Covid-19 vaccination: Yes [employer]: [place] - Vaccination Dates Date of 2cond Vaccination (if applicable): 2020 - Review of Systems Constitutional: Fatigue, Weakness Eyes: No Symptoms Ears, Nose, & Throat: No Symptoms Respiratory: No Symptoms Cardiac: No Symptoms Abdominal/Gastrointestinal: Nausea, Vomiting, No Abdominal Pain Genitourinary Symptoms: No Symptoms Musculoskeletal: Myalgias Neurological: No Symptoms Psychological: No Symptoms Endocrine: Polyuria, Polydipsia Hematologic/Lymphatic: No Symptoms Immunological/Allergic: No Symptoms - Past Medical History Pertinent Past Medical History: Yes Neurological History: No Pertinent History ENT History: No Pertinent History Cardiac History: Coronary Artery Disease, High Cholesterol, Hypertension Respiratory History: Bronchitis Endocrine Medical History: Diabetes Type II Musculoskeletal History: Arthritis GI Medical History: Gallbladder Disease, Ulcer History: Renal Disease, Other Psycho-Social History: No Pertinent History Female Reproductive Disorders: Breast Cancer Other Medical History: anemia, " stage 3 renal" - Past Surgical History Past Surgical History: Yes Neuro Surgical History: No Pertinent History Cardiac: Cardiac Catheterization Respiratory: No Pertinent History Gastrointestinal: Cholecystectomy Genitourinary: No Pertinent History Musculoskeletal: No Pertinent History Female Surgical History: Mastectomy Other Surgical History: colonoscopy, port placement - Social History Smoking Status: Never smoker Exposure to second hand smoke: No Drug Use: none Patient Lives Alone: No (Daughter) Significant Family History: no pertinent family hx - Nursing Vital Signs Nursing Vital Signs: Initial Vital Signs Temperature 98 F 08/15/22 10:45 Pulse Rate 64 08/15/22 10:45 Respiratory Rate 18 08/15/22 10:45 Blood Pressure 119/53 08/15/22 10:45 O2 Sat by Pulse Oximetry 96 08/15/22 10:45 Pain Scale Pain Intensity 0 - Physical Exam General Appearance: no apparent distress, alert Eye Exam: PERRL/EOMI Ears, Nose, Throat Exam: normal ENT inspection, pharynx normal Neck Exam: normal inspection, non-tender, supple, full range of motion Respiratory Exam: normal breath sounds, lungs clear Cardiovascular Exam: regular rate/rhythm, normal heart sounds Gastrointestinal/Abdomen Exam: soft, normal bowel sounds, No tenderness, No distention, No guarding Back Exam: normal inspection, normal range of motion Extremity Exam: normal inspection, normal range of motion Neurologic Exam: alert, oriented x 3, cooperative Skin Exam: normal color SpO2 Interpretation: normal SpO2: 99 O2 Delivery: Room Air Ordered Tests: Medication Summary Discontinued Medications Generic Name Dose Route Start Last Admin Trade Name Freq PRN Reason Stop Dose Admin Acetaminophen 650 mg 08/15/22 14:50 Acetaminophen 325 Mg Tablet PO 09/14/22 14:49 Q4H PRN PRN PAIN AND/OR FEVER Acetaminophen 325 mg 08/16/22 09:38 Acetaminophen 325 Mg Tablet PO 09/15/22 09:37 Q8H PRN PRN PAIN Albuterol Sulfate 2 puff 08/15/22 15:28 Albuterol Common Canister Inhaler 09/14/22 15:27 Q4H PRN PRN SHORTNESS OF BREATH/WHEEZING Albuterol/Ipratropium 3 ml 08/15/22 15:00 08/16/22 07:20 Ipratropium/Albuterol Sulfate 3 Ml Ampul.Neb 09/14/22 14:59 Not Given Q4HRT BRAYDEN Clopidogrel Bisulfate 75 mg 08/15/22 18:00 08/16/22 09:08 Clopidogrel Bisulfate 75 Mg Tablet PO 09/14/22 17:59 75 mg DAILY BRAYDEN Administration Ferrous Sulfate 81.25 mg 08/15/22 22:00 08/15/22 22:16 Ferrous Sulfate 325 Mg Tablet PO 09/14/22 21:59 81.25 mg HS BRAYDEN Administration Folic Acid 1 mg 08/15/22 22:00 08/15/22 22:15 Folic Acid 1 Mg Tablet PO 09/14/22 21:59 1 mg HS BRAYDEN Administration Heparin Sodium (Beef Lung) 500 units 08/16/22 08:13 08/16/22 09:09 Heparin Lock Flush Pf 500 Units/5 Ml Syringe PORT FLUSH 09/15/22 08:12 500 units PRN PRN Administration IV PORT FLUSH Sodium Chloride 1,000 mls @ 999 mls/hr 08/15/22 11:14 08/15/22 12:28 Sodium Chloride 0.9% 1000 Ml IV 08/15/22 12:14 Infused .Q1H1M STA Infusion Sodium Chloride Confirm 08/15/22 11:23 Sodium Chloride 0.9% 1000 Ml Administered 08/15/22 11:24 Dose 1,000 mls @ ud .ROUTE .STK-MED ONE Insulin Human Regular 100 unit 100 mls @ 6.75 mls/hr 08/15/22 12:05 08/16/22 08:19 / Sodium Chloride IV 09/14/22 12:04 0 unit/kg/hr .[id number] PRN 0 mls/hr DKA/HYPERGLYCEMIA Titration Protocol 0.1 UNIT/KG/HR Sodium Chloride 1,000 mls @ 999 mls/hr 08/15/22 12:05 08/15/22 13:37 Sodium Chloride 0.9% 1000 Ml IV 08/15/22 13:05 Infused .Q1H1M STA Infusion Sodium Chloride Confirm 08/15/22 12:29 Sodium Chloride 0.9% 1000 Ml Administered 08/15/22 12:30 Dose 1,000 mls @ ud .ROUTE .STK-MED ONE Piperacillin Sod/Tazobactam 100 mls @ 200 mls/hr 08/15/22 12:59 08/15/22 13:24 Sod 3.375 gm/ Sodium Chloride IV 08/15/22 13:28 200 mls/hr STAT ONE Administration Sodium Chloride Confirm 08/15/22 13:24 Sodium Chloride 100ml Mini-Bag Plus Administered 08/15/22 13:25 Dose 100 mls @ ud IV .STK-MED ONE Sodium Chloride 1,000 mls @ 150 mls/hr 08/15/22 14:15 08/16/22 07:20 Sodium Chloride 0.9% 1000 Ml IV 09/14/22 14:14 Not Given .Q6H40M BRAYDEN Piperacillin Sod/Tazobactam 100 mls @ 200 mls/hr 08/15/22 18:00 Sod 3.375 gm/ Sodium Chloride IV 08/18/22 17:59 Q6HT BRAYDEN Piperacillin Sod/Tazobactam 100 mls @ 200 mls/hr 08/15/22 18:00 08/16/22 05:22 Sod 2.25 gm/ Sodium Chloride IV 09/14/22 17:59 200 mls/hr Q6HT BRAYDEN Administration Potassium Chloride/Dextrose/Sod Cl 1,000 mls @ 150 mls/hr 08/15/22 22:30 08/16/22 05:23 D5w/0.45ns W/ 20meq Kcl 1000 Ml IV 09/14/22 22:29 150 mls/hr .Q6H40M BRAYDEN Administration Insulin Glargine 26 unit 08/16/22 22:00 Insulin Glargine 1 Unit SQ 09/15/22 21:59 HS BRAYDEN Insulin Human Lispro 14 unit 08/16/22 08:10 08/16/22 12:21 Insulin Lispro 1 Unit SQ 09/15/22 08:09 7 unit AC BRAYDEN Administration Insulin Human Lispro 0 unit 08/16/22 08:10 Insulin Lispro 1 Unit SQ 09/15/22 08:09 UD PRN HYPERGLYCEMIA Insulin Human Regular 7 unit 08/15/22 12:05 08/15/22 12:22 Insulin Regular, Human 1 Unit IV 08/15/22 12:06 7 unit STAT ONE Administration Insulin Human Regular Confirm 08/15/22 12:22 Insulin Regular, Human 1 Unit Administered 08/15/22 12:23 Dose 7 unit .ROUTE .STK-MED ONE Metoprolol Tartrate 50 mg 08/15/22 18:00 08/16/22 09:09 Metoprolol Tartrate 50 Mg Tablet PO 09/14/22 17:59 Not Given DAILY [facility] Miscellaneous Information 1 each 08/15/22 17:15 Medication Intervention 1 Each Each 09/14/22 17:14 .RN TO CHECK BRAYDEN Morphine Sulfate 2 mg 08/15/22 14:50 Morphine Sulfate 2 Mg/Ml Inj IV 08/20/22 14:49 Q4H PRN PRN PAIN Olanzapine 2.5 mg 08/15/22 18:00 08/16/22 09:08 Olanzapine 5 Mg Tab PO 09/14/22 17:59 2.5 mg DAILY BRAYDEN Administration Ondansetron HCl 4 mg 08/15/22 11:14 08/15/22 11:25 Ondansetron Hcl 4 Mg/2 Ml Vial IV 08/15/22 11:15 4 mg STAT ONE Administration Ondansetron HCl Confirm 08/15/22 11:23 Ondansetron Hcl 4 Mg/2 Ml Vial Administered 08/15/22 11:24 Dose 4 mg .ROUTE .STK-MED ONE Ondansetron HCl 4 mg 08/15/22 14:50 Ondansetron Hcl 4 Mg/2 Ml Vial IV 09/14/22 14:49 Q6H PRN PRN NAUSEA/VOMITING Pantoprazole Sodium 40 mg 08/15/22 12:21 08/15/22 12:29 Pantoprazole 40 Mg Vial IV 08/15/22 12:22 40 mg STAT ONE Administration Pantoprazole Sodium Confirm 08/15/22 12:28 Pantoprazole 40 Mg Vial Administered 08/15/22 12:29 Dose 40 mg IV .STK-MED ONE Pantoprazole Sodium 40 mg 08/16/22 10:00 08/16/22 09:08 Pantoprazole 40 Mg Vial IV 09/15/22 09:59 40 mg Q24H10 BRAYDEN Administration Paroxetine HCl 20 mg 08/15/22 18:00 08/16/22 09:09 Paroxetine Hcl 20 Mg Tablet PO 09/14/22 17:59 20 mg DAILY BRAYDEN Administration Piperacillin Sod/Tazobactam Sod Confirm 08/15/22 13:23 Piperacillin/Tazobactam Sodium 3.375 Gm Vial Administered 08/15/22 13:24 Dose 3.375 gm IV .STK-MED ONE Potassium Chloride 20 meq 08/15/22 22:00 08/16/22 09:07 Potassium Chloride Tab 10 Meq Tab PO 09/14/22 21:59 Not Given BID BRAYDEN Tramadol HCl 37.5 mg 08/16/22 09:37 Tramadol Hcl 50 Mg Tablet PO 09/15/22 09:36 Q8H PRN PRN PAIN Lab/Rad Data: Laboratory Result Diagrams 08/15/22 11:05 08/15/22 11:55 Laboratory Results 08/15/22 08/15/22 08/15/22 Range/Units 14:34 13:28 13:27 WBC (4.0-10.5) x10^3/uL RBC (4.1-5.4) x10^6/uL Hgb (12.0-16.0) g/dL Hct (35-47) % MCV (78-100) fL MCH (26-32) pg MCHC (32-36) g/dL RDW (11.5-14.0) % Plt Count (150-450) x10^3/uL MPV (7.5-11.0) fL Gran % (36.0-66.0) % Immature Gran % (Auto) (0.00-0.4) % Nucleat RBC Rel Count (0.00-0.1) % Eos # (Auto) (0-0.5) x10^3/uL Immature Gran # (Auto) (0.00-0.03) x10^3u/L Absolute Lymphs (auto) (1.0-4.6) x10^3/uL Absolute Monos (auto) (0.0-1.3) x10^3/uL Absolute Nucleated RBC (0.00-0.01) x10^3u/L Lymphocytes % (24.0-44.0) % Monocytes % (0.0-12.0) % Eosinophils % (0.00-5.0) % Basophils % (0.0-0.4) % Absolute Granulocytes (1.4-6.9) x10^3/uL Basophils # (0-0.4) x10^3/uL pO2/FiO2 Ratio % VBG pH (7.32-7.42) VBG pCO2 at Pat Temp (42-55) mm/Hg VBG pO2 at Pat Temp (25-40) mm/Hg VBG HCO3 (22-28) meq/L VBG O2 Sat (Deborah) (95-100) VBG Base Excess (-2.0-2.0) VBG Hemoglobin VBG Carboxyhemoglobin (0.0-6.9) % T HGB POC Potassium (3.5-5.1) Sodium (137-145) mmol/L Potassium (3.5-5.1) mmol/L Chloride (98-107) mmol/L Carbon Dioxide (22-30) mmol/L Anion Gap (5-15) MEQ/L BUN (7-17) mg/dL Creatinine (0.52-1.04) mg/dL Estimated GFR ML/MIN Glucose (74-106) mg/dL POC Glucometer 546 H* (50 to 500) mg/dL Lactic Acid 2.0 (0.4-2.0) Calcium (8.4-10.2) mg/dL Magnesium (1.6-2.3) mg/dL Total Bilirubin (0.2-1.3) mg/dL AST (14-36) U/L ALT (0-35) U/L Alkaline Phosphatase (38-126) U/L Troponin I (0.000-0.034) ng/mL Serum Total Protein (6.3-8.2) g/dL Albumin (3.5-5.0) g/dL Lipase (23-300) U/L Urinalys Dipstick Clnc MAIN LAB Urine Color YELLOW (YELLOW) Urine Appearance CLEAR (CLEAR) Urine pH 5.5 (5-6) Ur Specific Offerman 1.015 (1.005-1.025) POC Urine Protein Conf NEGATIVE (Negative) Urine Ketones MODERATE-40 A (NEGATIVE) Urine Nitrite NEGATIVE (NEGATIVE) Urine Bilirubin NEGATIVE (NEGATIVE) Urine Urobilinogen 0.2 (0-1) mg/dL Urine Leukocytes NEGATIVE (NEGATIVE) Urine WBC (Auto) 11-15 A (0-5) /HPF Urine RBC (Auto) 0-2 (0-2) /HPF U Hyaline Cast (Auto) 3-5 A (0-2) /LPF U Epithel Cells (Auto) RARE (FEW) /HPF Urine Bacteria (Auto) RARE (NEGATIVE) /HPF Urine RBC TRACE-LYSED A (0-5) Chandu/ul Urine Mucus (Auto) SLIGHT A (NEGATIVE) /HPF Ur Culture Indicated? YES Urine Glucose >=1000 A (NEGATIVE) mg/dL Influenza Type A Ag (NEGATIVE) Influenza Type B Ag (NEGATIVE) RSV (PCR) (Negative) SARS-CoV-2 (PCR) (NEGATIVE) 08/15/22 08/15/22 08/15/22 Range/Units 12:18 11:55 11:16 WBC (4.0-10.5) x10^3/uL RBC (4.1-5.4) x10^6/uL Hgb (12.0-16.0) g/dL Hct (35-47) % MCV (78-100) fL MCH (26-32) pg MCHC (32-36) g/dL RDW (11.5-14.0) % Plt Count (150-450) x10^3/uL MPV (7.5-11.0) fL Gran % (36.0-66.0) % Immature Gran % (Auto) (0.00-0.4) % Nucleat RBC Rel Count (0.00-0.1) % Eos # (Auto) (0-0.5) x10^3/uL Immature Gran # (Auto) (0.00-0.03) x10^3u/L Absolute Lymphs (auto) (1.0-4.6) x10^3/uL Absolute Monos (auto) (0.0-1.3) x10^3/uL Absolute Nucleated RBC (0.00-0.01) x10^3u/L Lymphocytes % (24.0-44.0) % Monocytes % (0.0-12.0) % Eosinophils % (0.00-5.0) % Basophils % (0.0-0.4) % Absolute Granulocytes (1.4-6.9) x10^3/uL Basophils # (0-0.4) x10^3/uL pO2/FiO2 Ratio 21.0 % VBG pH 7.11 L* (7.32-7.42) VBG pCO2 at Pat Temp 29 L (42-55) mm/Hg VBG pO2 at Pat Temp 51 H (25-40) mm/Hg VBG HCO3 9.2 L* (22-28) meq/L VBG O2 Sat (Deborah) 82.3 L (95-100) VBG Base Excess -19.0 L (-2.0-2.0) VBG Hemoglobin 12.3 VBG Carboxyhemoglobin 2.5 (0.0-6.9) % T HGB POC Potassium 5.8 H (3.5-5.1) Sodium 130 L (137-145) mmol/L Potassium 5.2 H (3.5-5.1) mmol/L Chloride 95 L (98-107) mmol/L Carbon Dioxide 12 L* (22-30) mmol/L Anion Gap 29.6 H (5-15) MEQ/L BUN 45 H (7-17) mg/dL Creatinine 2.02 H (0.52-1.04) mg/dL Estimated GFR 26.0 ML/MIN Glucose 748 H* (74-106) mg/dL POC Glucometer (50 to 500) mg/dL Lactic Acid (0.4-2.0) Calcium 8.3 L (8.4-10.2) mg/dL Magnesium (1.6-2.3) mg/dL Total Bilirubin (0.2-1.3) mg/dL AST (14-36) U/L ALT (0-35) U/L Alkaline Phosphatase (38-126) U/L Troponin I (0.000-0.034) ng/mL Serum Total Protein (6.3-8.2) g/dL Albumin (3.5-5.0) g/dL Lipase (23-300) U/L Urinalys Dipstick Clnc Urine Color (YELLOW) Urine Appearance (CLEAR) Urine pH (5-6) Ur Specific Offerman (1.005-1.025) POC Urine Protein Conf (Negative) Urine Ketones (NEGATIVE) Urine Nitrite (NEGATIVE) Urine Bilirubin (NEGATIVE) Urine Urobilinogen (0-1) mg/dL Urine Leukocytes (NEGATIVE) Urine WBC (Auto) (0-5) /HPF Urine RBC (Auto) (0-2) /HPF U Hyaline Cast (Auto) (0-2) /LPF U Epithel Cells (Auto) (FEW) /HPF Urine Bacteria (Auto) (NEGATIVE) /HPF Urine RBC (0-5) Chandu/ul Urine Mucus (Auto) (NEGATIVE) /HPF Ur Culture Indicated? Urine Glucose (NEGATIVE) mg/dL Influenza Type A Ag NEGATIVE (NEGATIVE) Influenza Type B Ag NEGATIVE (NEGATIVE) RSV (PCR) NEGATIVE (Negative) SARS-CoV-2 (PCR) NEGATIVE (NEGATIVE) 08/15/22 08/15/22 08/15/22 Range/Units 11:14 11:05 11:05 WBC (4.0-10.5) x10^3/uL RBC (4.1-5.4) x10^6/uL Hgb (12.0-16.0) g/dL Hct (35-47) % MCV (78-100) fL MCH (26-32) pg MCHC (32-36) g/dL RDW (11.5-14.0) % Plt Count (150-450) x10^3/uL MPV (7.5-11.0) fL Gran % (36.0-66.0) % Immature Gran % (Auto) (0.00-0.4) % Nucleat RBC Rel Count (0.00-0.1) % Eos # (Auto) (0-0.5) x10^3/uL Immature Gran # (Auto) (0.00-0.03) x10^3u/L Absolute Lymphs (auto) (1.0-4.6) x10^3/uL Absolute Monos (auto) (0.0-1.3) x10^3/uL Absolute Nucleated RBC (0.00-0.01) x10^3u/L Lymphocytes % (24.0-44.0) % Monocytes % (0.0-12.0) % Eosinophils % (0.00-5.0) % Basophils % (0.0-0.4) % Absolute Granulocytes (1.4-6.9) x10^3/uL Basophils # (0-0.4) x10^3/uL pO2/FiO2 Ratio % VBG pH (7.32-7.42) VBG pCO2 at Pat Temp (42-55) mm/Hg VBG pO2 at Pat Temp (25-40) mm/Hg VBG HCO3 (22-28) meq/L VBG O2 Sat (Deborah) (95-100) VBG Base Excess (-2.0-2.0) VBG Hemoglobin VBG Carboxyhemoglobin (0.0-6.9) % T HGB POC Potassium (3.5-5.1) Sodium 125 L (137-145) mmol/L Potassium 5.7 H (3.5-5.1) mmol/L Chloride 85 L (98-107) mmol/L Carbon Dioxide 8 L* (22-30) mmol/L Anion Gap 38.5 H (5-15) MEQ/L BUN 44 H (7-17) mg/dL Creatinine 2.34 H (0.52-1.04) mg/dL Estimated GFR 21.9 ML/MIN Glucose 1050 H* (74-106) mg/dL POC Glucometer (50 to 500) mg/dL Lactic Acid 6.1 H (0.4-2.0) Calcium 9.2 (8.4-10.2) mg/dL Magnesium 1.8 (1.6-2.3) mg/dL Total Bilirubin 1.30 (0.2-1.3) mg/dL AST 34 (14-36) U/L ALT 39 H (0-35) U/L Alkaline Phosphatase 84 (38-126) U/L Troponin I 0.017 (0.000-0.034) ng/mL Serum Total Protein 7.5 (6.3-8.2) g/dL Albumin 4.5 (3.5-5.0) g/dL Lipase 48 (23-300) U/L Urinalys Dipstick Clnc Urine Color (YELLOW) Urine Appearance (CLEAR) Urine pH (5-6) Ur Specific Offerman (1.005-1.025) POC Urine Protein Conf (Negative) Urine Ketones (NEGATIVE) Urine Nitrite (NEGATIVE) Urine Bilirubin (NEGATIVE) Urine Urobilinogen (0-1) mg/dL Urine Leukocytes (NEGATIVE) Urine WBC (Auto) (0-5) /HPF Urine RBC (Auto) (0-2) /HPF U Hyaline Cast (Auto) (0-2) /LPF U Epithel Cells (Auto) (FEW) /HPF Urine Bacteria (Auto) (NEGATIVE) /HPF Urine RBC (0-5) Chandu/ul Urine Mucus (Auto) (NEGATIVE) /HPF Ur Culture Indicated? Urine Glucose (NEGATIVE) mg/dL Influenza Type A Ag (NEGATIVE) Influenza Type B Ag (NEGATIVE) RSV (PCR) (Negative) SARS-CoV-2 (PCR) (NEGATIVE) 08/15/22 Range/Units 11:05 WBC 21.4 H (4.0-10.5) x10^3/uL RBC 3.78 L (4.1-5.4) x10^6/uL Hgb 11.6 L (12.0-16.0) g/dL Hct 39.6 (35-47) % MCV 104.8 H (78-100) fL MCH 30.7 (26-32) pg MCHC 29.3 L (32-36) g/dL RDW 12.8 (11.5-14.0) % Plt Count 246 (150-450) x10^3/uL MPV 11.5 H (7.5-11.0) fL Gran % 86.0 H (36.0-66.0) % Immature Gran % (Auto) 0.8 H (0.00-0.4) % Nucleat RBC Rel Count 0.0 (0.00-0.1) % Eos # (Auto) 0.01 (0-0.5) x10^3/uL Immature Gran # (Auto) 0.17 H (0.00-0.03) x10^3u/L Absolute Lymphs (auto) 1.60 (1.0-4.6) x10^3/uL Absolute Monos (auto) 1.17 (0.0-1.3) x10^3/uL Absolute Nucleated RBC 0.00 (0.00-0.01) x10^3u/L Lymphocytes % 7.5 L (24.0-44.0) % Monocytes % 5.5 (0.0-12.0) % Eosinophils % 0.0 (0.00-5.0) % Basophils % 0.2 (0.0-0.4) % Absolute Granulocytes 18.44 H (1.4-6.9) x10^3/uL Basophils # 0.05 (0-0.4) x10^3/uL pO2/FiO2 Ratio % VBG pH (7.32-7.42) VBG pCO2 at Pat Temp (42-55) mm/Hg VBG pO2 at Pat Temp (25-40) mm/Hg VBG HCO3 (22-28) meq/L VBG O2 Sat (Deborah) (95-100) VBG Base Excess (-2.0-2.0) VBG Hemoglobin VBG Carboxyhemoglobin (0.0-6.9) % T HGB POC Potassium (3.5-5.1) Sodium (137-145) mmol/L Potassium (3.5-5.1) mmol/L Chloride (98-107) mmol/L Carbon Dioxide (22-30) mmol/L Anion Gap (5-15) MEQ/L BUN (7-17) mg/dL Creatinine (0.52-1.04) mg/dL Estimated GFR ML/MIN Glucose (74-106) mg/dL POC Glucometer (50 to 500) mg/dL Lactic Acid (0.4-2.0) Calcium (8.4-10.2) mg/dL Magnesium (1.6-2.3) mg/dL Total Bilirubin (0.2-1.3) mg/dL AST (14-36) U/L ALT (0-35) U/L Alkaline Phosphatase (38-126) U/L Troponin I (0.000-0.034) ng/mL Serum Total Protein (6.3-8.2) g/dL Albumin (3.5-5.0) g/dL Lipase (23-300) U/L Urinalys Dipstick Clnc Urine Color (YELLOW) Urine Appearance (CLEAR) Urine pH (5-6) Ur Specific Offerman (1.005-1.025) POC Urine Protein Conf (Negative) Urine Ketones (NEGATIVE) Urine Nitrite (NEGATIVE) Urine Bilirubin (NEGATIVE) Urine Urobilinogen (0-1) mg/dL Urine Leukocytes (NEGATIVE) Urine WBC (Auto) (0-5) /HPF Urine RBC (Auto) (0-2) /HPF U Hyaline Cast (Auto) (0-2) /LPF U Epithel Cells (Auto) (FEW) /HPF Urine Bacteria (Auto) (NEGATIVE) /HPF Urine RBC (0-5) Chandu/ul Urine Mucus (Auto) (NEGATIVE) /HPF Ur Culture Indicated? Urine Glucose (NEGATIVE) mg/dL Influenza Type A Ag (NEGATIVE) Influenza Type B Ag (NEGATIVE) RSV (PCR) (Negative) SARS-CoV-2 (PCR) (NEGATIVE) - Progress Progress: improved, re-examined Progress Note: 08/15/22 12:54 67-year-old is evaluated for nausea vomiting with polydipsia and polyuria with high blood sugar. Patient is given fluid boluses x2, on reevaluation feeling some improvement. Work-up showed white count of 21, lactate of 6.1 and blood glucose 1050 with pH of 7.1 and bicarb of 8. Patient is in DKA. EKG showed sinus arrhythmia but no acute ischemic changes and negative initial troponin. Has a potassium of 5.7. Obtained CT abdomen pelvis without contrast which is negative for any acute intra-abdominal findings but has some finding of esophagitis and given Protonix. Patient is not having any chest pain or difficulty breathing at all. 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 Thornton. I have discussed with Dr. Duke started on insulin per DKA protocol. Patient is being admitted to ICU here. Discussed with .: Vince, Other (Dr. [facility] endocrinology Caroline Looney) Will see patient in: hospital (observation) Counseled pt/family regarding: lab results, diagnosis, need for follow-up, rad results - Departure Departure Disposition: In-patient Admission Clinical Impression: Hyperkalemia, GERD with esophagitis, Sepsis DKA (diabetic ketoacidosis) Qualifiers: Diabetes mellitus type: type 2 Diabetes mellitus complication detail: without coma Qualified Code(s): E11.10 - Type 2 diabetes mellitus with ketoacidosis without coma Nausea & vomiting Qualifiers: Vomiting type: unspecified Qualified Code(s): R11.2 - Nausea with vomiting, unspecified Condition: Stable Critical Care Time: No
[2022-08-15] MEDS ORDERED: PIPERACILLIN/TAZOBACTAM 3.375 GM in Sodium Chloride 100ML MINI-BAG PLUS 100 ML IV ONE (12:59)
[2022-08-15 13:03] LABS: INFLUENZA A NEGATIVE (NEGATIVE); INFLUENZA B NEGATIVE (NEGATIVE); RESPIRATORY SYNCTIAL VIRUS NEGATIVE (Negative); SARS-CoV-2 Xpert Express NEGATIVE (NEGATIVE)
[2022-08-15 13:14] LABS: ANION GAP 29.6 MEQ/L (5-15); Calcium 8.3 mg/dL (8.4-10.2); Creatinine 1 2.02 mg/dL (0.52-1.04); Potassium 5.2 mmol/L (3.5-5.1)
[2022-08-15] MEDS ORDERED: PIPERACILLIN/TAZOBACTAM IV ONE (13:23)
[2022-08-15] MEDS ORDERED: Sodium Chloride 100ML MINI-BAG PLUS 100 ML IV ONE (13:24)
[2022-08-15] MEDS: Sodium Chloride 0.9% 1000 ML 1,000 ML IV SCH (14:05)
[2022-08-15 14:20] LABS: Appearance CLEAR (CLEAR); Bilirubin NEGATIVE (NEGATIVE); Dipstick done @ ? MAIN LAB; Glucose >=1000 mg/dL (NEGATIVE); Ketones MODERATE-40 (NEGATIVE); Nitrite NEGATIVE (NEGATIVE); Ph 5.5 (5-6); Protein,Urine Dip NEGATIVE (Negative); RBC TRACE-LYSED Ery/ul (0-5); Specific Gravity 1.015 (1.005-1.025); Urobilinogen 0.2 mg/dL (0-1)
[2022-08-15 14:26] LABS: Bacteria RARE /HPF (NEGATIVE); Epithelial Cells RARE /HPF (FEW); Mucus SLIGHT /HPF (NEGATIVE); RBC 0-2 /HPF (0-2)
[2022-08-15 14:27] LABS: Urine Cultured Indicated? YES
[2022-08-15] MEDS ORDERED: TYLENOL 325 MG PO PRN (14:50)
[2022-08-15] MEDS ORDERED: MORPHINE SULFATE 2 MG INJ IV PRN (14:50)
[2022-08-15] MEDS ORDERED: Zofran 4 MG/2 ML VIAL IV PRN (14:50)
[2022-08-15] MEDS ORDERED: DUONEB 0.5-3 MG/3 ml Neb IH SCH (15:00)
[2022-08-15] MEDS ORDERED: VENTOLIN COMMON CANISTER IH PRN (15:28)
[2022-08-15] MEDS ORDERED: ACETAMINOPHEN PO PRN (17:05)
[2022-08-15] MEDS ORDERED: [UNRECOGNIZED DRUG - OTHER] PO PRN (17:05)
[2022-08-15] MEDS ORDERED: TRAMADOL HCL PO PRN (17:05)
[2022-08-15] MEDS ORDERED: MEDICATION INTERVENTION MC SCH (17:15)
[2022-08-15] MEDS ORDERED: PIPERACILLIN/TAZOBACTAM 3.375 GM in Sodium Chloride 100ML MINI-BAG PLUS 100 ML IV SCH (18:00)
[2022-08-15] MEDS: Piperacillin/Tazobactam 2.25 GM 2.25 GM in Sodium Chloride 100ML MINI-BAG PLUS 100 ML IV SCH ×2 (18:25→23:51)
[2022-08-15] MEDS: Paxil 20 MG PO SCH (18:26)
[2022-08-15] MEDS: Lopressor 50 MG PO SCH (18:26)
[2022-08-15] MEDS: zyPREXA 5MG TABLET PO SCH (18:26)
[2022-08-15] MEDS: PLAVIX Tablet PO SCH (18:26)
[2022-08-15 20:04] LABS: ANION GAP 14.9 MEQ/L (5-15); Calcium 8.2 mg/dL (8.4-10.2); Creatinine 1 1.68 mg/dL (0.52-1.04); EST GLOMERULAR FILTRATION RATE 32.1 ML/MIN; Potassium 4.3 mmol/L (3.5-5.1)
[2022-08-15] MEDS ORDERED: FOLATE 1 MG PO SCH (22:00)
[2022-08-15] MEDS ORDERED: FEOSOL 325 MG PO SCH (22:00)
[2022-08-15] MEDS ORDERED: NON-FORMULARY ITEM (Iron [Iron] 18 MG Tablet) PO SCH (22:00)
[2022-08-15] MEDS ORDERED: NON-FORMULARY ITEM (Potassium Chloride [Potassium Chloride] 20 MEQ Tab.Er.Prt) PO SCH (22:00)
[2022-08-15] MEDS: D5W/0.45NS W/ 20mEq KCl 1000 ML 1,000 ML IV SCH (22:13)
[2022-08-15] MEDS: Klor Con PO SCH (22:15)
[2022-08-16 01:48] LABS: ANION GAP 11.2 MEQ/L (5-15); Calcium 7.8 mg/dL (8.4-10.2); Creatinine 1 1.37 mg/dL (0.52-1.04); EST GLOMERULAR FILTRATION RATE 40.6 ML/MIN; Potassium 4.3 mmol/L (3.5-5.1)
[2022-08-16] MEDS: Piperacillin/Tazobactam 2.25 GM 2.25 GM in Sodium Chloride 100ML MINI-BAG PLUS 100 ML IV SCH (05:22)
[2022-08-16] MEDS: D5W/0.45NS W/ 20mEq KCl 1000 ML 1,000 ML IV SCH (05:23)
[2022-08-16] MEDS: Sodium Chloride 0.9% 1000 ML 1,000 ML IV SCH (07:20)
[2022-08-16 07:59] LABS: Hematocrit 32.4 % (35-47); Hemoglobin 10.9 g/dL (12.0-16.0); Mean Cell Volume 91.8 fL (78-100); Mean Corpuscular Hemoglobin 30.9 pg (26-32); Mean Corpuscular Hgb Concent. 33.6 g/dL (32-36); Mean Platelet Volume 10.7 fL (7.5-11.0); Platelet Count 178 x10^3/uL (150-450); Red Blood Count 3.53 x10^6/uL (4.1-5.4); Red Cell Distribution Width 12.9 % (11.5-14.0); White Blood Count 16.6 x10^3/uL (4.0-10.5)
[2022-08-16] MEDS ORDERED: HUMALOG SQ PRN (08:10)
[2022-08-16 08:14] LABS: ALBUMIN 3.3 g/dL (3.5-5.0); ANION GAP 9.4 MEQ/L (5-15); BILIRUBIN,TOTAL 0.8 mg/dL (0.2-1.3); Calcium 7.8 mg/dL (8.4-10.2); Creatinine 1 1.35 mg/dL (0.52-1.04); EST GLOMERULAR FILTRATION RATE 41.3 ML/MIN; MAGNESIUM 1.9 mg/dL (1.6-2.3); Potassium 4.3 mmol/L (3.5-5.1); Total Protein 6.3 g/dL (6.3-8.2)
[2022-08-16] MEDS: HUMALOG SQ SCH ×2 (08:18→12:21)
[2022-08-16] MEDS: Klor Con PO SCH (09:07)
[2022-08-16] MEDS: zyPREXA 5MG TABLET PO SCH (09:08)
[2022-08-16] MEDS: PLAVIX Tablet PO SCH (09:08)
[2022-08-16] MEDS: Lopressor 50 MG PO SCH (09:09)
[2022-08-16] MEDS: Paxil 20 MG PO SCH (09:09)
[2022-08-16] MEDS ORDERED: ULTRAM 50 MG PO PRN (09:37)
[2022-08-16] MEDS ORDERED: TYLENOL 325 MG PO PRN (09:38)
[2022-08-16] MEDS ORDERED: OLANZAPINE 2.5 MG PO SCH (10:00)
[2022-08-16] MEDS ORDERED: PROTONIX 40 MG IV IV SCH (10:00)
[2022-08-16 11:39] VITALS: BP 101/52; PULSE 64
--- NOTE | 2022-08-16 19:36 | PCM.SSS ---
History of Present Illness - Chief Complaint Chief Complaint: nausea and vomiting for 1-2 days History of Present Illness: is a 67 year old female.with history of breast cancer left mastectomy long time ago completed chemotherapy, brittle diabetic presented in the ER with multiple episodes of nonprojectile, nonbilious vomiting since yesterday, unable to hold anything down along with increased urination and thirst. Patient feels weak fatigued tired and no energy. Complaining of generalized body aches. No fever or chills reported. Patient checked her blood sugar prior to arrival and it was reading high. Denies any abdominal pain or chest pain. Patient reports she felt short of breath on presentation in the ER for a few minutes and does not have any difficulty breathing or chest pain at present. Timing/Duration: yesterday, gradual onset, worse Severity: moderate Modifying Factors: Improves With: nothing Associated Symptoms: nausea, vomiting, shortness of breath, loss of appetite, malaise, weakness, No abdominal pain, No diaphoresis, No cough, No chills, No chest pain, No fever - Review of Systems Constitutional: Weakness, No Fever, No Chills Eyes: No Symptoms Ears, Nose, & Throat: No Symptoms Respiratory: No Cough, No Short Of Breath Cardiac: No Chest Pain, No Edema, No Syncope Abdominal/Gastrointestinal: Nausea, Vomiting, No Abdominal Pain, No Diarrhea Genitourinary Symptoms: No Dysuria Musculoskeletal: No Back Pain, No Neck Pain Skin: No Rash Neurological: No Dizziness, No Focal Weakness, No Sensory Changes Psychological: No Symptoms Endocrine: No Symptoms Hematologic/Lymphatic: No Symptoms Immunological/Allergic: No Symptoms Medications & Allergies Home Medications: Home Medication List Insulin Lispro [Humalog] 14 unit SQ AC 03/31/21 [History Confirmed 08/15/22] PARoxetine HCL [Paxil] 20 mg PO DAILY 03/31/21 [History Confirmed 08/15/22] Potassium Chloride 20 meq PO BID 03/31/21 [History Confirmed 08/15/22] Tramadol HCl/Acetaminophen [Tramadol-Acetaminophn 37.5-325] 37.5 each PO Q8H PRN 06/15/21 [History Confirmed 08/15/22] Folic Acid 1 mg PO HS 06/27/21 [History Confirmed 08/15/22] Clopidogrel Bisulfate [Clopidogrel] 75 mg PO DAILY 08/15/22 [History Confirmed 08/15/22] Insulin Glargine,Hum.rec.anlog [Zahra Lozanoalvinatiffanie] 32 units SQ HS MDD 50 08/15/22 [History Confirmed 08/15/22] Iron 1 tab PO HS 08/15/22 [History Confirmed 08/15/22] Metoprolol Tartrate 50 mg [Lopressor 50 MG] 50 mg PO DAILY 08/15/22 [History Confirmed 08/15/22] OLANZapine [Olanzapine] 2.5 mg PO DAILY 08/15/22 [History Confirmed 08/15/22] Allergies/Adverse Reactions: Allergies Allergy/AdvReac Type Severity Reaction Status Date / Time Influenza Virus Vaccines AdvReac Verified 08/15/22 14:55 - Past Medical History Past Medical History: Yes Neurological History: No Pertinent History ENT History: No Pertinent History Cardiac History: Coronary Artery Disease, High Cholesterol, Hypertension Respiratory History: Bronchitis Endocrine Medical History: Diabetes Type II Musculoskelatal History: Arthritis GI Medical History: Gallbladder Disease, Ulcer History: Renal Disease, Other Pyscho-Social History: No Pertinent History Reproductive Disorders: Breast Cancer Comment: anemia, " stage 3 renal" - Past Surgical History Past Surgical History: Yes Neuro Surgical History: No Pertinent History Cardiac History: Cardiac Catheterization Respiratory Surgery: No Pertinent History GI Surgical History: Cholecystectomy Genitourinary Surgical Hx: No Pertinent History Musculskeletal Surgical Hx: No Pertinent History Female Surgical History: Mastectomy Other Surgical History: colonoscopy, port placement - Social History Smoking Status: Never smoker Exposure to second hand smoke: No Alcohol: None Drug Use: none Significant Family History: no pertinent family hx - Physical Exam Vital Signs: Vital Signs - 24 hr Temp Pulse Resp BP Pulse Ox 08/16/22 11:38 96.4 F 64 20 101/52 92 L 08/16/22 07:49 63 08/16/22 06:07 63 10 L 116/65 94 L 08/16/22 05:19 97.4 F 66 18 97/61 08/16/22 04:07 97.3 F 74 18 134/72 95 08/16/22 04:02 74 08/16/22 00:01 64 08/16/22 00:00 64 12 125/58 96 08/15/22 20:00 98.2 F 74 21 108/60 97 General Appearance: moderate distress, alert, lethargy Neurologic Exam: alert, oriented x 3, cooperative, normal mood/affect, nml cerebellar function, nml station & gait, sensation nml, No motor deficits Eye Exam: PERRL/EOMI, eyes nml inspection Ears, Nose, Throat Exam: normal ENT inspection, TMs normal, pharynx normal, moist mucous membranes Neck Exam: normal inspection, non-tender, supple, full range of motion Respiratory Exam: normal breath sounds, lungs clear, No respiratory distress Cardiovascular Exam: regular rate/rhythm, normal heart sounds, normal peripheral pulses Gastrointestinal/Abdomen Exam: soft, normal bowel sounds, No tenderness, No mass Back Exam: normal inspection, normal range of motion, No CVA tenderness, No vertebral tenderness Extremity Exam: normal inspection, normal range of motion, pelvis stable Skin Exam: normal color, warm, dry, No rash Lymphatic Exam: No adenopathy Results - Labs Lab/Micro Results: Lab Results-Last 24 Hours 08/15/22 08/15/22 08/15/22 Range/Units 19:52 19:52 19:59 WBC (4.0-10.5) x10^3/uL RBC (4.1-5.4) x10^6/uL Hgb (12.0-16.0) g/dL Hct (35-47) % MCV (78-100) fL MCH (26-32) pg MCHC (32-36) g/dL RDW (11.5-14.0) % Plt Count (150-450) x10^3/uL MPV (7.5-11.0) fL Sodium 133 L (137-145) mmol/L Potassium 4.3 (3.5-5.1) mmol/L Chloride 102 (98-107) mmol/L Carbon Dioxide 21 L (22-30) mmol/L Anion Gap 14.9 (5-15) MEQ/L BUN 44 H (7-17) mg/dL Creatinine 1.68 H (0.52-1.04) mg/dL Estimated GFR 32.1 ML/MIN Glucose 375 H (74-106) mg/dL POC Glucometer 355 H (74 to 106) mg/dL Hemoglobin A1c (4.5-6.0) % Calcium 8.2 L (8.4-10.2) mg/dL Magnesium (1.6-2.3) mg/dL Total Bilirubin (0.2-1.3) mg/dL AST (14-36) U/L ALT (0-35) U/L Alkaline Phosphatase (38-126) U/L Troponin I 0.033 (0.000-0.034) ng/mL Serum Total Protein (6.3-8.2) g/dL Albumin (3.5-5.0) g/dL 08/15/22 08/15/22 08/15/22 Range/Units 21:07 22:04 23:05 WBC (4.0-10.5) x10^3/uL RBC (4.1-5.4) x10^6/uL Hgb (12.0-16.0) g/dL Hct (35-47) % MCV (78-100) fL MCH (26-32) pg MCHC (32-36) g/dL RDW (11.5-14.0) % Plt Count (150-450) x10^3/uL MPV (7.5-11.0) fL Sodium (137-145) mmol/L Potassium (3.5-5.1) mmol/L Chloride (98-107) mmol/L Carbon Dioxide (22-30) mmol/L Anion Gap (5-15) MEQ/L BUN (7-17) mg/dL Creatinine (0.52-1.04) mg/dL Estimated GFR ML/MIN Glucose (74-106) mg/dL POC Glucometer 293 H 222 H 193 H (74 to 106) mg/dL Hemoglobin A1c (4.5-6.0) % Calcium (8.4-10.2) mg/dL Magnesium (1.6-2.3) mg/dL Total Bilirubin (0.2-1.3) mg/dL AST (14-36) U/L ALT (0-35) U/L Alkaline Phosphatase (38-126) U/L Troponin I (0.000-0.034) ng/mL Serum Total Protein (6.3-8.2) g/dL Albumin (3.5-5.0) g/dL 08/15/22 08/16/22 08/16/22 Range/Units 23:59 01:02 01:33 WBC (4.0-10.5) x10^3/uL RBC (4.1-5.4) x10^6/uL Hgb (12.0-16.0) g/dL Hct (35-47) % MCV (78-100) fL MCH (26-32) pg MCHC (32-36) g/dL RDW (11.5-14.0) % Plt Count (150-450) x10^3/uL MPV (7.5-11.0) fL Sodium 135 L (137-145) mmol/L Potassium 4.3 (3.5-5.1) mmol/L Chloride 106 (98-107) mmol/L Carbon Dioxide 22 (22-30) mmol/L Anion Gap 11.2 (5-15) MEQ/L BUN 41 H (7-17) mg/dL Creatinine 1.37 H (0.52-1.04) mg/dL Estimated GFR 40.6 ML/MIN Glucose 125 H (74-106) mg/dL POC Glucometer 160 H 112 H (74 to 106) mg/dL Hemoglobin A1c (4.5-6.0) % Calcium 7.8 L (8.4-10.2) mg/dL Magnesium (1.6-2.3) mg/dL Total Bilirubin (0.2-1.3) mg/dL AST (14-36) U/L ALT (0-35) U/L Alkaline Phosphatase (38-126) U/L Troponin I (0.000-0.034) ng/mL Serum Total Protein (6.3-8.2) g/dL Albumin (3.5-5.0) g/dL 08/16/22 08/16/22 08/16/22 Range/Units 01:54 03:07 04:00 WBC (4.0-10.5) x10^3/uL RBC (4.1-5.4) x10^6/uL Hgb (12.0-16.0) g/dL Hct (35-47) % MCV (78-100) fL MCH (26-32) pg MCHC (32-36) g/dL RDW (11.5-14.0) % Plt Count (150-450) x10^3/uL MPV (7.5-11.0) fL Sodium (137-145) mmol/L Potassium (3.5-5.1) mmol/L Chloride (98-107) mmol/L Carbon Dioxide (22-30) mmol/L Anion Gap (5-15) MEQ/L BUN (7-17) mg/dL Creatinine (0.52-1.04) mg/dL Estimated GFR ML/MIN Glucose (74-106) mg/dL POC Glucometer 112 H 163 H 180 H (74 to 106) mg/dL Hemoglobin A1c (4.5-6.0) % Calcium (8.4-10.2) mg/dL Magnesium (1.6-2.3) mg/dL Total Bilirubin (0.2-1.3) mg/dL AST (14-36) U/L ALT (0-35) U/L Alkaline Phosphatase (38-126) U/L Troponin I (0.000-0.034) ng/mL Serum Total Protein (6.3-8.2) g/dL Albumin (3.5-5.0) g/dL 08/16/22 08/16/22 08/16/22 Range/Units 05:16 06:00 06:52 WBC (4.0-10.5) x10^3/uL RBC (4.1-5.4) x10^6/uL Hgb (12.0-16.0) g/dL Hct (35-47) % MCV (78-100) fL MCH (26-32) pg MCHC (32-36) g/dL RDW (11.5-14.0) % Plt Count (150-450) x10^3/uL MPV (7.5-11.0) fL Sodium (137-145) mmol/L Potassium (3.5-5.1) mmol/L Chloride (98-107) mmol/L Carbon Dioxide (22-30) mmol/L Anion Gap (5-15) MEQ/L BUN (7-17) mg/dL Creatinine (0.52-1.04) mg/dL Estimated GFR ML/MIN Glucose (74-106) mg/dL POC Glucometer 201 H 202 H 193 H (74 to 106) mg/dL Hemoglobin A1c (4.5-6.0) % Calcium (8.4-10.2) mg/dL Magnesium (1.6-2.3) mg/dL Total Bilirubin (0.2-1.3) mg/dL AST (14-36) U/L ALT (0-35) U/L Alkaline Phosphatase (38-126) U/L Troponin I (0.000-0.034) ng/mL Serum Total Protein (6.3-8.2) g/dL Albumin (3.5-5.0) g/dL 08/16/22 08/16/22 08/16/22 Range/Units 07:30 07:30 07:30 WBC 16.6 H (4.0-10.5) x10^3/uL RBC 3.53 L (4.1-5.4) x10^6/uL Hgb 10.9 L (12.0-16.0) g/dL Hct 32.4 L (35-47) % MCV 91.8 D (78-100) fL MCH 30.9 (26-32) pg MCHC 33.6 (32-36) g/dL RDW 12.9 (11.5-14.0) % Plt Count 178 (150-450) x10^3/uL MPV 10.7 (7.5-11.0) fL Sodium 136 L (137-145) mmol/L Potassium 4.3 (3.5-5.1) mmol/L Chloride 107 (98-107) mmol/L Carbon Dioxide 24 (22-30) mmol/L Anion Gap 9.4 (5-15) MEQ/L BUN 33 H (7-17) mg/dL Creatinine 1.35 H (0.52-1.04) mg/dL Estimated GFR 41.3 ML/MIN Glucose 190 H (74-106) mg/dL POC Glucometer (74 to 106) mg/dL Hemoglobin A1c 12.75 H (4.5-6.0) % Calcium 7.8 L (8.4-10.2) mg/dL Magnesium 1.9 (1.6-2.3) mg/dL Total Bilirubin 0.80 (0.2-1.3) mg/dL AST 38 H (14-36) U/L ALT 20 (0-35) U/L Alkaline Phosphatase 53 (38-126) U/L Troponin I (0.000-0.034) ng/mL Serum Total Protein 6.3 (6.3-8.2) g/dL Albumin 3.3 L (3.5-5.0) g/dL 08/16/22 Range/Units 11:33 WBC (4.0-10.5) x10^3/uL RBC (4.1-5.4) x10^6/uL Hgb (12.0-16.0) g/dL Hct (35-47) % MCV (78-100) fL MCH (26-32) pg MCHC (32-36) g/dL RDW (11.5-14.0) % Plt Count (150-450) x10^3/uL MPV (7.5-11.0) fL Sodium (137-145) mmol/L Potassium (3.5-5.1) mmol/L Chloride (98-107) mmol/L Carbon Dioxide (22-30) mmol/L Anion Gap (5-15) MEQ/L BUN (7-17) mg/dL Creatinine (0.52-1.04) mg/dL Estimated GFR ML/MIN Glucose (74-106) mg/dL POC Glucometer 113 H (74 to 106) mg/dL Hemoglobin A1c (4.5-6.0) % Calcium (8.4-10.2) mg/dL Magnesium (1.6-2.3) mg/dL Total Bilirubin (0.2-1.3) mg/dL AST (14-36) U/L ALT (0-35) U/L Alkaline Phosphatase (38-126) U/L Troponin I (0.000-0.034) ng/mL Serum Total Protein (6.3-8.2) g/dL Albumin (3.5-5.0) g/dL Microbiology 08/15/22 13:27 Urine Culture - Preliminary Clean Catch Midstream GRAM NEGATIVE ID AND SENSITIVITY PENDING Accuchecks Date 08/16/22 Date 08/16/22 Date 08/16/22 Date 08/16/22 Date 08/16/22 Date 08/16/22 Date 08/16/22 Date 08/16/22 Date 08/16/22 Date 08/16/22 Date 08/16/22 Date 08/15/22 Date 08/15/22 Date 08/15/22 Date 08/15/22 Time 11:38 Time 05:15 Time 05:15 Time 04:00 Time 03:05 Time 03:05 Time 02:00 Time 02:00 Time 01:00 Time 00:03 Time 23:00 Time 22:00 Time 21:00 Time 20:00 - Radiology Impressions Radiology Exams & Impressions: Radiology Procedures Category Date Time Status ABDOMEN AND PELVIS W/0 CONTRAS [CT] Stat Exams 08/15/22 11:15 Completed Assessment/Plan (1) DKA (diabetic ketoacidosis) Status: Acute Qualifiers: Diabetes mellitus type: type 2 Diabetes mellitus complication detail: without coma Qualified Code(s): E11.10 - Type 2 diabetes mellitus with ketoacidosis without coma Assessment & Plan: Chief Complaint Diagnosis DKA Allergies Allergy/AdvReac Type Severity Reaction Status Date / Time Influenza Virus Vaccines AdvReac Verified 08/15/22 14:55 Vital Signs (Last 24 hours) Temp Pulse Resp BP Pulse Ox 08/16/22 11:38 96.4 F 64 20 101/52 92 L 08/16/22 07:49 63 08/16/22 06:07 63 10 L 116/65 94 L 08/16/22 05:19 97.4 F 66 18 97/61 08/16/22 04:07 97.3 F 74 18 134/72 95 08/16/22 04:02 74 08/16/22 00:01 64 08/16/22 00:00 64 12 125/58 96 08/15/22 20:00 98.2 F 74 21 108/60 97 Home Medications Medication Instructions Recorded Confirmed Last Taken Type Clopidogrel Bisulfate [Clopidogrel] 75 mg PO DAILY 08/15/22 08/15/22 08/14/22 10:00 History Insulin Glargine,Hum.rec.anlog 32 units SQ HS MDD 50 08/15/22 08/15/22 08/14/22 20:00 History [Toujeo Solostar] Iron 1 tab PO HS 08/15/22 08/15/22 08/14/22 20:00 History Metoprolol Tartrate 50 mg 50 mg PO DAILY 08/15/22 08/15/22 08/14/22 10:00 History [Lopressor 50 MG] OLANZapine [Olanzapine] 2.5 mg PO DAILY 08/15/22 08/15/22 08/14/22 10:00 History Current Medications Discontinued Medications Generic Name Dose Route Start Last Admin Trade Name Ananya PRN Reason Stop Dose Admin Acetaminophen 650 mg 08/15/22 14:50 Acetaminophen 325 Mg Tablet PO 09/14/22 14:49 Q4H PRN PRN PAIN AND/OR FEVER Acetaminophen 325 mg 08/16/22 09:38 Acetaminophen 325 Mg Tablet PO 09/15/22 09:37 Q8H PRN PRN PAIN Albuterol Sulfate 2 puff 08/15/22 15:28 Albuterol Common Canister Inhaler 09/14/22 15:27 Q4H PRN PRN SHORTNESS OF BREATH/WHEEZING Albuterol/Ipratropium 3 ml 08/15/22 15:00 08/16/22 07:20 Ipratropium/Albuterol Sulfate 3 Ml Ampul.Neb 09/14/22 14:59 Not Given Q4HRT BRAYDEN Clopidogrel Bisulfate 75 mg 08/15/22 18:00 08/16/22 09:08 Clopidogrel Bisulfate 75 Mg Tablet PO 09/14/22 17:59 75 mg DAILY BRAYDEN Administration Ferrous Sulfate 81.25 mg 08/15/22 22:00 08/15/22 22:16 Ferrous Sulfate 325 Mg Tablet PO 09/14/22 21:59 81.25 mg HS BRAYDEN Administration Folic Acid 1 mg 08/15/22 22:00 08/15/22 22:15 Folic Acid 1 Mg Tablet PO 09/14/22 21:59 1 mg HS BRAYDEN Administration Heparin Sodium (Beef Lung) 500 units 08/16/22 08:13 08/16/22 09:09 Heparin Lock Flush Pf 500 Units/5 Ml Syringe PORT FLUSH 09/15/22 08:12 500 units PRN PRN Administration IV PORT FLUSH Sodium Chloride 1,000 mls @ 999 mls/hr 08/15/22 11:14 08/15/22 12:28 Sodium Chloride 0.9% 1000 Ml IV 08/15/22 12:14 Infused .Q1H1M STA Infusion Sodium Chloride Confirm 08/15/22 11:23 Sodium Chloride 0.9% 1000 Ml Administered 08/15/22 11:24 Dose 1,000 mls @ ud .ROUTE .STK-MED ONE Insulin Human Regular 100 unit 100 mls @ 6.75 mls/hr 08/15/22 12:05 08/16/22 08:19 / Sodium Chloride IV 09/14/22 12:04 0 unit/kg/hr .[id number] PRN 0 mls/hr DKA/HYPERGLYCEMIA Titration Protocol 0.1 UNIT/KG/HR Sodium Chloride 1,000 mls @ 999 mls/hr 08/15/22 12:05 08/15/22 13:37 Sodium Chloride 0.9% 1000 Ml IV 08/15/22 13:05 Infused .Q1H1M STA Infusion Sodium Chloride Confirm 08/15/22 12:29 Sodium Chloride 0.9% 1000 Ml Administered 08/15/22 12:30 Dose 1,000 mls @ ud .ROUTE .STK-MED ONE Piperacillin Sod/Tazobactam 100 mls @ 200 mls/hr 08/15/22 12:59 08/15/22 13:24 Sod 3.375 gm/ Sodium Chloride IV 08/15/22 13:28 200 mls/hr STAT ONE Administration Sodium Chloride Confirm 08/15/22 13:24 Sodium Chloride 100ml Mini-Bag Plus Administered 08/15/22 13:25 Dose 100 mls @ ud IV .STK-MED ONE Sodium Chloride 1,000 mls @ 150 mls/hr 08/15/22 14:15 08/16/22 07:20 Sodium Chloride 0.9% 1000 Ml IV 09/14/22 14:14 Not Given .Q6H40M BRAYDEN Piperacillin Sod/Tazobactam 100 mls @ 200 mls/hr 08/15/22 18:00 Sod 3.375 gm/ Sodium Chloride IV 08/18/22 17:59 Q6HT BRAYDEN Piperacillin Sod/Tazobactam 100 mls @ 200 mls/hr 08/15/22 18:00 08/16/22 05:22 Sod 2.25 gm/ Sodium Chloride IV 09/14/22 17:59 200 mls/hr Q6HT BRAYDEN Administration Potassium Chloride/Dextrose/Sod Cl 1,000 mls @ 150 mls/hr 08/15/22 22:30 08/16/22 05:23 D5w/0.45ns W/ 20meq Kcl 1000 Ml IV 09/14/22 22:29 150 mls/hr .Q6H40M BRAYDEN Administration Insulin Glargine 26 unit 08/16/22 22:00 Insulin Glargine 1 Unit SQ 09/15/22 21:59 HS BRAYDEN Insulin Human Lispro 14 unit 08/16/22 08:10 08/16/22 12:21 Insulin Lispro 1 Unit SQ 09/15/22 08:09 7 unit AC BRAYDEN Administration Insulin Human Lispro 0 unit 08/16/22 08:10 Insulin Lispro 1 Unit SQ 09/15/22 08:09 UD PRN HYPERGLYCEMIA Insulin Human Regular 7 unit 08/15/22 12:05 08/15/22 12:22 Insulin Regular, Human 1 Unit IV 08/15/22 12:06 7 unit STAT ONE Administration Insulin Human Regular Confirm 08/15/22 12:22 Insulin Regular, Human 1 Unit Administered 08/15/22 12:23 Dose 7 unit .ROUTE .STK-MED ONE Metoprolol Tartrate 50 mg 08/15/22 18:00 08/16/22 09:09 Metoprolol Tartrate 50 Mg Tablet PO 09/14/22 17:59 Not Given DAILY BRAYDEN Miscellaneous Information 1 each 08/15/22 17:15 Medication Intervention 1 Each Each 09/14/22 17:14 .RN TO CHECK BRAYDEN Morphine Sulfate 2 mg 08/15/22 14:50 Morphine Sulfate 2 Mg/Ml Inj IV 08/20/22 14:49 Q4H PRN PRN PAIN Olanzapine 2.5 mg 08/15/22 18:00 08/16/22 09:08 Olanzapine 5 Mg Tab PO 09/14/22 17:59 2.5 mg DAILY BRAYDEN Administration Ondansetron HCl 4 mg 08/15/22 11:14 08/15/22 11:25 Ondansetron Hcl 4 Mg/2 Ml Vial IV 08/15/22 11:15 4 mg STAT ONE Administration Ondansetron HCl Confirm 08/15/22 11:23 Ondansetron Hcl 4 Mg/2 Ml Vial Administered 08/15/22 11:24 Dose 4 mg .ROUTE .STK-MED ONE Ondansetron HCl 4 mg 08/15/22 14:50 Ondansetron Hcl 4 Mg/2 Ml Vial IV 09/14/22 14:49 Q6H PRN PRN NAUSEA/VOMITING Pantoprazole Sodium 40 mg 08/15/22 12:21 08/15/22 12:29 Pantoprazole 40 Mg Vial IV 08/15/22 12:22 40 mg STAT ONE Administration Pantoprazole Sodium Confirm 08/15/22 12:28 Pantoprazole 40 Mg Vial Administered 08/15/22 12:29 Dose 40 mg IV .STK-MED ONE Pantoprazole Sodium 40 mg 08/16/22 10:00 08/16/22 09:08 Pantoprazole 40 Mg Vial IV 09/15/22 09:59 40 mg Q24H10 BRAYDEN Administration Paroxetine HCl 20 mg 08/15/22 18:00 08/16/22 09:09 Paroxetine Hcl 20 Mg Tablet PO 09/14/22 17:59 20 mg DAILY BRAYDEN Administration Piperacillin Sod/Tazobactam Sod Confirm 08/15/22 13:23 Piperacillin/Tazobactam Sodium 3.375 Gm Vial Administered 08/15/22 13:24 Dose 3.375 gm IV .STK-MED ONE Potassium Chloride 20 meq 08/15/22 22:00 08/16/22 09:07 Potassium Chloride Tab 10 Meq Tab PO 09/14/22 21:59 Not Given BID BRAYDEN Tramadol HCl 37.5 mg 08/16/22 09:37 Tramadol Hcl 50 Mg Tablet PO 09/15/22 09:36 Q8H PRN PRN PAIN Intake & Output (Last 24 hours) 08/14/22 08/15/22 08/16/22 08/17/22 11:59 11:59 11:59 11:59 Intake Total 2607 Output Total 200 Balance 2407 Weight 67.5 kg 67.3 kg Microbiology Results (Last 24 hours) 08/15/22 13:27 Clean Catch Midstream Urine Culture - Preliminary GRAM NEGATIVE ID AND SENSITIVITY PENDING Laboratory Results (Last 24 hours) 08/16/22 08/16/22 08/16/22 11:33 07:30 07:30 WBC RBC Hgb Hct MCV MCH MCHC RDW Plt Count MPV Sodium 136 L Potassium 4.3 Chloride 107 Carbon Dioxide 24 Anion Gap 9.4 BUN 33 H Creatinine 1.35 H Estimated GFR 41.3 Glucose 190 H POC Glucometer 113 H Hemoglobin A1c 12.75 H Calcium 7.8 L Magnesium 1.9 Total Bilirubin 0.80 AST 38 H ALT 20 Alkaline Phosphatase 53 Troponin I Serum Total Protein 6.3 Albumin 3.3 L 08/16/22 08/16/22 08/16/22 07:30 06:52 06:00 WBC 16.6 H RBC 3.53 L Hgb 10.9 L Hct 32.4 L MCV 91.8 D MCH 30.9 MCHC 33.6 RDW 12.9 Plt Count 178 MPV 10.7 Sodium Potassium Chloride Carbon Dioxide Anion Gap BUN Creatinine Estimated GFR Glucose POC Glucometer 193 H 202 H Hemoglobin A1c Calcium Magnesium Total Bilirubin AST ALT Alkaline Phosphatase Troponin I Serum Total Protein Albumin 08/16/22 08/16/22 08/16/22 05:16 04:00 03:07 WBC RBC Hgb Hct MCV MCH MCHC RDW Plt Count MPV Sodium Potassium Chloride Carbon Dioxide Anion Gap BUN Creatinine Estimated GFR Glucose POC Glucometer 201 H 180 H 163 H Hemoglobin A1c Calcium Magnesium Total Bilirubin AST ALT Alkaline Phosphatase Troponin I Serum Total Protein Albumin 08/16/22 08/16/22 08/16/22 01:54 01:33 01:02 WBC RBC Hgb Hct MCV MCH MCHC RDW Plt Count MPV Sodium 135 L Potassium 4.3 Chloride 106 Carbon Dioxide 22 Anion Gap 11.2 BUN 41 H Creatinine 1.37 H Estimated GFR 40.6 Glucose 125 H POC Glucometer 112 H 112 H Hemoglobin A1c Calcium 7.8 L Magnesium Total Bilirubin AST ALT Alkaline Phosphatase Troponin I Serum Total Protein Albumin 08/15/22 08/15/22 08/15/22 23:59 23:05 22:04 WBC RBC Hgb Hct MCV MCH MCHC RDW Plt Count MPV Sodium Potassium Chloride Carbon Dioxide Anion Gap BUN Creatinine Estimated GFR Glucose POC Glucometer 160 H 193 H 222 H Hemoglobin A1c Calcium Magnesium Total Bilirubin AST ALT Alkaline Phosphatase Troponin I Serum Total Protein Albumin 08/15/22 08/15/22 08/15/22 21:07 19:59 19:52 WBC RBC Hgb Hct MCV MCH MCHC RDW Plt Count MPV Sodium 133 L Potassium 4.3 Chloride 102 Carbon Dioxide 21 L Anion Gap 14.9 BUN 44 H Creatinine 1.68 H Estimated GFR 32.1 Glucose 375 H POC Glucometer 293 H 355 H Hemoglobin A1c Calcium 8.2 L Magnesium Total Bilirubin AST ALT Alkaline Phosphatase Troponin I Serum Total Protein Albumin 08/15/22 19:52 WBC RBC Hgb Hct MCV MCH MCHC RDW Plt Count MPV Sodium Potassium Chloride Carbon Dioxide Anion Gap BUN Creatinine Estimated GFR Glucose POC Glucometer Hemoglobin A1c Calcium Magnesium Total Bilirubin AST ALT Alkaline Phosphatase Troponin I 0.033 Serum Total Protein Albumin Orders (Last 24 hours) Category Date Time Status Nutritional Admission Screen ONCE Diet 08/16/22 08:00 Completed Discharge Routine Discharge 08/16/22 Ordered BMP [BMP] Urgent Lab 08/15/22 19:52 Completed BMP [BMP] Urgent Lab 08/16/22 01:33 Completed CBC AM.LAB Lab 08/16/22 07:30 Completed CMP [CMP] AM.LAB Lab 08/16/22 07:30 Completed HEMOGLOBIN A1C Urgent Lab 08/16/22 07:30 Completed MAG [MAGNESIUM] AM.LAB Lab 08/16/22 07:30 Completed POCT GLUCOSE Stat Lab 08/15/22 18:55 Completed POCT GLUCOSE Stat Lab 08/15/22 19:59 Completed POCT GLUCOSE Stat Lab 08/15/22 21:07 Completed POCT GLUCOSE Stat Lab 08/15/22 22:04 Completed POCT GLUCOSE Stat Lab 08/15/22 23:05 Completed POCT GLUCOSE Stat Lab 08/15/22 23:59 Completed POCT GLUCOSE Stat Lab 08/16/22 01:02 Completed POCT GLUCOSE Stat Lab 08/16/22 01:54 Completed POCT GLUCOSE Stat Lab 08/16/22 03:07 Completed POCT GLUCOSE Stat Lab 08/16/22 04:00 Completed POCT GLUCOSE Stat Lab 08/16/22 05:16 Completed POCT GLUCOSE Stat Lab 08/16/22 06:00 Completed POCT GLUCOSE Stat Lab 08/16/22 06:52 Completed POCT GLUCOSE Stat Lab 08/16/22 11:33 Completed TROPONIN Q4H Lab 08/15/22 19:52 Completed Acetaminophen 325 mg [Tylenol 325 mg] Med 08/16/22 09:38 Discontinued 325 mg PO Q8H PRN PRN D5w-0.45NACL W/ 20Meq KCl [D5W/0.45NS W/ 20mEq KCl 1000 Med 08/15/22 22:30 Discontinued ML] 1,000 ml IV 150 mls/hr Ferrous Sulfate 325 mg [Feosol 325 mg] Med 08/15/22 22:00 Discontinued 81.25 mg PO HS Folic Acid 1 mg [Folate 1 mg] Med 08/15/22 22:00 Discontinued 1 mg PO HS Heparin Flush 500 units/5 ml [Heparin Lock Flush 500 Med 08/16/22 08:13 Discontinued Units/5ml Syringe] 500 units PORT FLUSH PRN PRN Insulin Glargine [Lantus Insulin] Med 08/16/22 22:00 Discontinued 26 unit SQ HS Insulin Lispro [Humalog] Med 08/16/22 08:10 Discontinued 14 unit SQ AC Insulin Lispro [Humalog] Med 08/16/22 08:10 Discontinued See Dose Instructions SQ UD PRN Pantoprazole 40 mg [Protonix 40 mg IV] Med 08/16/22 10:00 Discontinued 40 mg IV Q24H10 Potassium Chloride Tab* [Klor Con] Med 08/15/22 22:00 Discontinued 20 meq PO BID Tramadol HCl 50 mg [Ultram 50 mg] Med 08/16/22 09:37 Discontinued 37.5 mg PO Q8H PRN PRN Code(s): E11.10 - TYPE 2 DIABETES MELLITUS WITH KETOACIDOSIS WITHOUT COMA (2) Nausea & vomiting Status: Acute Qualifiers: Vomiting type: unspecified Qualified Code(s): R11.2 - Nausea with vomiting, unspecified Assessment & Plan: Last Vital Signs Temp 96.4 F 08/16/22 11:38 Pulse 64 08/16/22 11:38 Resp 20 08/16/22 11:38 BP 101/52 08/16/22 11:38 Pulse Ox 92 L 08/16/22 11:38 Allergies Influenza Virus Vaccines Adverse Reaction (Verified 08/15/22 14:55) Intake & Output 08/16/22 08/17/22 11:59 11:59 Intake Total 2607 Output Total 200 Balance 2407 Weight 67.3 kg Orders 08/16/22 Discharge Routine Lab Tests 08/15/22 08/15/22 08/15/22 19:52 19:52 19:59 WBC RBC Hgb Hct MCV MCH MCHC RDW Plt Count MPV Sodium 133 L Potassium 4.3 Chloride 102 Carbon Dioxide 21 L Anion Gap 14.9 BUN 44 H Creatinine 1.68 H Estimated GFR 32.1 Glucose 375 H POC Glucometer 355 H Hemoglobin A1c Calcium 8.2 L Magnesium Total Bilirubin AST ALT Alkaline Phosphatase Troponin I 0.033 Serum Total Protein Albumin 08/15/22 08/15/22 08/15/22 21:07 22:04 23:05 WBC RBC Hgb Hct MCV MCH MCHC RDW Plt Count MPV Sodium Potassium Chloride Carbon Dioxide Anion Gap BUN Creatinine Estimated GFR Glucose POC Glucometer 293 H 222 H 193 H Hemoglobin A1c Calcium Magnesium Total Bilirubin AST ALT Alkaline Phosphatase Troponin I Serum Total Protein Albumin 08/15/22 08/16/22 08/16/22 23:59 01:02 01:33 WBC RBC Hgb Hct MCV MCH MCHC RDW Plt Count MPV Sodium 135 L Potassium 4.3 Chloride 106 Carbon Dioxide 22 Anion Gap 11.2 BUN 41 H Creatinine 1.37 H Estimated GFR 40.6 Glucose 125 H POC Glucometer 160 H 112 H Hemoglobin A1c Calcium 7.8 L Magnesium Total Bilirubin AST ALT Alkaline Phosphatase Troponin I Serum Total Protein Albumin 08/16/22 08/16/22 08/16/22 01:54 03:07 04:00 WBC RBC Hgb Hct MCV MCH MCHC RDW Plt Count MPV Sodium Potassium Chloride Carbon Dioxide Anion Gap BUN Creatinine Estimated GFR Glucose POC Glucometer 112 H 163 H 180 H Hemoglobin A1c Calcium Magnesium Total Bilirubin AST ALT Alkaline Phosphatase Troponin I Serum Total Protein Albumin 08/16/22 08/16/22 08/16/22 05:16 06:00 06:52 WBC RBC Hgb Hct MCV MCH MCHC RDW Plt Count MPV Sodium Potassium Chloride Carbon Dioxide Anion Gap BUN Creatinine Estimated GFR Glucose POC Glucometer 201 H 202 H 193 H Hemoglobin A1c Calcium Magnesium Total Bilirubin AST ALT Alkaline Phosphatase Troponin I Serum Total Protein Albumin 08/16/22 08/16/22 08/16/22 07:30 07:30 07:30 WBC 16.6 H RBC 3.53 L Hgb 10.9 L Hct 32.4 L MCV 91.8 D MCH 30.9 MCHC 33.6 RDW 12.9 Plt Count 178 MPV 10.7 Sodium 136 L Potassium 4.3 Chloride 107 Carbon Dioxide 24 Anion Gap 9.4 BUN 33 H Creatinine 1.35 H Estimated GFR 41.3 Glucose 190 H POC Glucometer Hemoglobin A1c 12.75 H Calcium 7.8 L Magnesium 1.9 Total Bilirubin 0.80 AST 38 H ALT 20 Alkaline Phosphatase 53 Troponin I Serum Total Protein 6.3 Albumin 3.3 L 08/16/22 11:33 WBC RBC Hgb Hct MCV MCH MCHC RDW Plt Count MPV Sodium Potassium Chloride Carbon Dioxide Anion Gap BUN Creatinine Estimated GFR Glucose POC Glucometer 113 H Hemoglobin A1c Calcium Magnesium Total Bilirubin AST ALT Alkaline Phosphatase Troponin I Serum Total Protein Albumin Microbiology 08/15/22 13:27 Clean Catch Midstream Urine Culture - Preliminary GRAM NEGATIVE ID AND SENSITIVITY PENDING Code(s): R11.2 - NAUSEA WITH VOMITING, UNSPECIFIED Hospital Summary - Vitals & Intake/Output Vital Signs: Vital Signs Temperature 96.4 F 08/16/22 11:38 Pulse Rate 64 08/16/22 11:38 Respiratory Rate 20 08/16/22 11:38 Blood Pressure 101/52 08/16/22 11:38 O2 Sat by Pulse Oximetry 92 L 08/16/22 11:38 Intake & Output: Intake & Output 08/14/22 08/15/22 08/16/22 08/17/22 11:59 11:59 11:59 11:59 Intake Total 2607 Output Total 200 Balance 2407 Weight 67.5 kg 67.3 kg - Lab Result Diagrams: 08/16/22 07:30 08/16/22 07:30 Lab Results-Last 24 Hrs: Lab Results-Last 24 Hours 08/15/22 08/15/22 08/15/22 Range/Units 19:52 19:52 19:59 WBC (4.0-10.5) x10^3/uL RBC (4.1-5.4) x10^6/uL Hgb (12.0-16.0) g/dL Hct (35-47) % MCV (78-100) fL MCH (26-32) pg MCHC (32-36) g/dL RDW (11.5-14.0) % Plt Count (150-450) x10^3/uL MPV (7.5-11.0) fL Sodium 133 L (137-145) mmol/L Potassium 4.3 (3.5-5.1) mmol/L Chloride 102 (98-107) mmol/L Carbon Dioxide 21 L (22-30) mmol/L Anion Gap 14.9 (5-15) MEQ/L BUN 44 H (7-17) mg/dL Creatinine 1.68 H (0.52-1.04) mg/dL Estimated GFR 32.1 ML/MIN Glucose 375 H (74-106) mg/dL POC Glucometer 355 H (74 to 106) mg/dL Hemoglobin A1c (4.5-6.0) % Calcium 8.2 L (8.4-10.2) mg/dL Magnesium (1.6-2.3) mg/dL Total Bilirubin (0.2-1.3) mg/dL AST (14-36) U/L ALT (0-35) U/L Alkaline Phosphatase (38-126) U/L Troponin I 0.033 (0.000-0.034) ng/mL Serum Total Protein (6.3-8.2) g/dL Albumin (3.5-5.0) g/dL 08/15/22 08/15/22 08/15/22 Range/Units 21:07 22:04 23:05 WBC (4.0-10.5) x10^3/uL RBC (4.1-5.4) x10^6/uL Hgb (12.0-16.0) g/dL Hct (35-47) % MCV (78-100) fL MCH (26-32) pg MCHC (32-36) g/dL RDW (11.5-14.0) % Plt Count (150-450) x10^3/uL MPV (7.5-11.0) fL Sodium (137-145) mmol/L Potassium (3.5-5.1) mmol/L Chloride (98-107) mmol/L Carbon Dioxide (22-30) mmol/L Anion Gap (5-15) MEQ/L BUN (7-17) mg/dL Creatinine (0.52-1.04) mg/dL Estimated GFR ML/MIN Glucose (74-106) mg/dL POC Glucometer 293 H 222 H 193 H (74 to 106) mg/dL Hemoglobin A1c (4.5-6.0) % Calcium (8.4-10.2) mg/dL Magnesium (1.6-2.3) mg/dL Total Bilirubin (0.2-1.3) mg/dL AST (14-36) U/L ALT (0-35) U/L Alkaline Phosphatase (38-126) U/L Troponin I (0.000-0.034) ng/mL Serum Total Protein (6.3-8.2) g/dL Albumin (3.5-5.0) g/dL 08/15/22 08/16/22 08/16/22 Range/Units 23:59 01:02 01:33 WBC (4.0-10.5) x10^3/uL RBC (4.1-5.4) x10^6/uL Hgb (12.0-16.0) g/dL Hct (35-47) % MCV (78-100) fL MCH (26-32) pg MCHC (32-36) g/dL RDW (11.5-14.0) % Plt Count (150-450) x10^3/uL MPV (7.5-11.0) fL Sodium 135 L (137-145) mmol/L Potassium 4.3 (3.5-5.1) mmol/L Chloride 106 (98-107) mmol/L Carbon Dioxide 22 (22-30) mmol/L Anion Gap 11.2 (5-15) MEQ/L BUN 41 H (7-17) mg/dL Creatinine 1.37 H (0.52-1.04) mg/dL Estimated GFR 40.6 ML/MIN Glucose 125 H (74-106) mg/dL POC Glucometer 160 H 112 H (74 to 106) mg/dL Hemoglobin A1c (4.5-6.0) % Calcium 7.8 L (8.4-10.2) mg/dL Magnesium (1.6-2.3) mg/dL Total Bilirubin (0.2-1.3) mg/dL AST (14-36) U/L ALT (0-35) U/L Alkaline Phosphatase (38-126) U/L Troponin I (0.000-0.034) ng/mL Serum Total Protein (6.3-8.2) g/dL Albumin (3.5-5.0) g/dL 08/16/22 08/16/22 08/16/22 Range/Units 01:54 03:07 04:00 WBC (4.0-10.5) x10^3/uL RBC (4.1-5.4) x10^6/uL Hgb (12.0-16.0) g/dL Hct (35-47) % MCV (78-100) fL MCH (26-32) pg MCHC (32-36) g/dL RDW (11.5-14.0) % Plt Count (150-450) x10^3/uL MPV (7.5-11.0) fL Sodium (137-145) mmol/L Potassium (3.5-5.1) mmol/L Chloride (98-107) mmol/L Carbon Dioxide (22-30) mmol/L Anion Gap (5-15) MEQ/L BUN (7-17) mg/dL Creatinine (0.52-1.04) mg/dL Estimated GFR ML/MIN Glucose (74-106) mg/dL POC Glucometer 112 H 163 H 180 H (74 to 106) mg/dL Hemoglobin A1c (4.5-6.0) % Calcium (8.4-10.2) mg/dL Magnesium (1.6-2.3) mg/dL Total Bilirubin (0.2-1.3) mg/dL AST (14-36) U/L ALT (0-35) U/L Alkaline Phosphatase (38-126) U/L Troponin I (0.000-0.034) ng/mL Serum Total Protein (6.3-8.2) g/dL Albumin (3.5-5.0) g/dL 08/16/22 08/16/22 08/16/22 Range/Units 05:16 06:00 06:52 WBC (4.0-10.5) x10^3/uL RBC (4.1-5.4) x10^6/uL Hgb (12.0-16.0) g/dL Hct (35-47) % MCV (78-100) fL MCH (26-32) pg MCHC (32-36) g/dL RDW (11.5-14.0) % Plt Count (150-450) x10^3/uL MPV (7.5-11.0) fL Sodium (137-145) mmol/L Potassium (3.5-5.1) mmol/L Chloride (98-107) mmol/L Carbon Dioxide (22-30) mmol/L Anion Gap (5-15) MEQ/L BUN (7-17) mg/dL Creatinine (0.52-1.04) mg/dL Estimated GFR ML/MIN Glucose (74-106) mg/dL POC Glucometer 201 H 202 H 193 H (74 to 106) mg/dL Hemoglobin A1c (4.5-6.0) % Calcium (8.4-10.2) mg/dL Magnesium (1.6-2.3) mg/dL Total Bilirubin (0.2-1.3) mg/dL AST (14-36) U/L ALT (0-35) U/L Alkaline Phosphatase (38-126) U/L Troponin I (0.000-0.034) ng/mL Serum Total Protein (6.3-8.2) g/dL Albumin (3.5-5.0) g/dL 08/16/22 08/16/22 08/16/22 Range/Units 07:30 07:30 07:30 WBC 16.6 H (4.0-10.5) x10^3/uL RBC 3.53 L (4.1-5.4) x10^6/uL Hgb 10.9 L (12.0-16.0) g/dL Hct 32.4 L (35-47) % MCV 91.8 D (78-100) fL MCH 30.9 (26-32) pg MCHC 33.6 (32-36) g/dL RDW 12.9 (11.5-14.0) % Plt Count 178 (150-450) x10^3/uL MPV 10.7 (7.5-11.0) fL Sodium 136 L (137-145) mmol/L Potassium 4.3 (3.5-5.1) mmol/L Chloride 107 (98-107) mmol/L Carbon Dioxide 24 (22-30) mmol/L Anion Gap 9.4 (5-15) MEQ/L BUN 33 H (7-17) mg/dL Creatinine 1.35 H (0.52-1.04) mg/dL Estimated GFR 41.3 ML/MIN Glucose 190 H (74-106) mg/dL POC Glucometer (74 to 106) mg/dL Hemoglobin A1c 12.75 H (4.5-6.0) % Calcium 7.8 L (8.4-10.2) mg/dL Magnesium 1.9 (1.6-2.3) mg/dL Total Bilirubin 0.80 (0.2-1.3) mg/dL AST 38 H (14-36) U/L ALT 20 (0-35) U/L Alkaline Phosphatase 53 (38-126) U/L Troponin I (0.000-0.034) ng/mL Serum Total Protein 6.3 (6.3-8.2) g/dL Albumin 3.3 L (3.5-5.0) g/dL 08/16/22 Range/Units 11:33 WBC (4.0-10.5) x10^3/uL RBC (4.1-5.4) x10^6/uL Hgb (12.0-16.0) g/dL Hct (35-47) % MCV (78-100) fL MCH (26-32) pg MCHC (32-36) g/dL RDW (11.5-14.0) % Plt Count (150-450) x10^3/uL MPV (7.5-11.0) fL Sodium (137-145) mmol/L Potassium (3.5-5.1) mmol/L Chloride (98-107) mmol/L Carbon Dioxide (22-30) mmol/L Anion Gap (5-15) MEQ/L BUN (7-17) mg/dL Creatinine (0.52-1.04) mg/dL Estimated GFR ML/MIN Glucose (74-106) mg/dL POC Glucometer 113 H (74 to 106) mg/dL Hemoglobin A1c (4.5-6.0) % Calcium (8.4-10.2) mg/dL Magnesium (1.6-2.3) mg/dL Total Bilirubin (0.2-1.3) mg/dL AST (14-36) U/L ALT (0-35) U/L Alkaline Phosphatase (38-126) U/L Troponin I (0.000-0.034) ng/mL Serum Total Protein (6.3-8.2) g/dL Albumin (3.5-5.0) g/dL Micro Results-Entire Visit: Microbiology 08/15/22 13:27 Urine Culture - Preliminary Clean Catch Midstream GRAM NEGATIVE ID AND SENSITIVITY PENDING Accuchecks Date 08/16/22 Date 08/16/22 Date 08/16/22 Date 08/16/22 Date 08/16/22 Date 08/16/22 Date 08/16/22 Date 08/16/22 Date 08/16/22 Date 08/16/22 Date 08/16/22 Date 08/15/22 Date 08/15/22 Date 08/15/22 Date 08/15/22 Time 11:38 Time 05:15 Time 05:15 Time 04:00 Time 03:05 Time 03:05 Time 02:00 Time 02:00 Time 01:00 Time 00:03 Time 23:00 Time 22:00 Time 21:00 Time 20:00 - Radiology Exams Ordered Rad Exams-Entire Visit: Radiology Procedures Category Date Time Status ABDOMEN AND PELVIS W/0 CONTRAS [CT] Stat Exams 08/15/22 11:15 Completed - Procedures and Test Procedures and Tests throughout Hospitalization: Therapy Orders & Screens 08/15/22 15:24 Respiratory Therapy Assessment DAILY Comment: Diagnosis: DKA - Discharge Disposition: Home, Self-Care Condition: Stable Prescriptions: Continue Potassium Chloride 20 meq PO BID PARoxetine HCL [Paxil] 20 mg PO DAILY Insulin Lispro [Humalog] 14 unit SQ AC Tramadol HCl/Acetaminophen [Tramadol-Acetaminophn 37.5-325] 37.5 each PO Q8H PRN PRN Reason: Moderate To Severe Pain Folic Acid 1 mg PO HS Insulin Glargine,Hum.rec.anlog [Toujeo Solostar] 32 units SQ HS MDD 50 OLANZapine [Olanzapine] 2.5 mg PO DAILY Metoprolol Tartrate 50 mg [Lopressor 50 MG] 50 mg PO DAILY Iron 1 tab PO HS Clopidogrel Bisulfate [Clopidogrel] 75 mg PO DAILY Instructions: Preventing Falls in Older Adults, Diabetic Ketoacidosis (DC) Follow up with: PATTIE HAQUE MD [Primary Care Provider] - 08/23/22 10:15 am ([facility]ICE)
[2022-08-16] MEDS ORDERED: Lantus Insulin SQ SCH (22:00)
[2022-08-17 21:49] VITALS: O2SAT 99
== END 2022-08-16 13:00 | disposition home or self-care (01) ==
LOC: ED 10:45 → INTOOBSV 14:40 → ICU 14:40
PROVIDERS: ADMIT General Practice; ATTEND General Practice
DX: E11.10 Type 2 diabetes mellitus with ketoacidosis without coma (principal); R11.2 Nausea with vomiting, unspecified; E11.22 Type 2 diabetes mellitus with diabetic chronic kidney disease; I12.9 Hypertensive chronic kidney disease with stage 1 through stage 4 chronic kidney disease, or unspecified chronic kidney disease; N18.30 Chronic kidney disease, stage 3 unspecified; I25.10 Atherosclerotic heart disease of native coronary artery without angina pectoris; D64.9 Anemia, unspecified; Z79.899 Other long term (current) drug therapy; Z20.828 Contact with and (suspected) exposure to other viral communicable diseases; Z85.3 Personal history of malignant neoplasm of breast
CPT/HCPCS: 0241U; 36000; 36415; 74176; 80048; 80053; 81015; 82805; 82947; 83036; 83605; 83690; 83735; 84145; 84484; 85025; 85027; 87040; 87077; 87086; 87186; 93005; 93268; 96360; 96361; 96365; 96374; 96375; 99284; G0378; J1642; J1815; J1817; J2405; J2543; A9270-GY